=== PATIENT | male | born 1985 | race African-American/Black ===

== ENCOUNTER 2016-05-22 20:53 | Emergency (ER) | payer MEDICAID ==
[2016-04-23 22:12] VITALS: BMI 23.9
[~2016-05-22 20:53] MED LIST: AMBIEN5 MG PO; ASPIRIN81 MG PO; AURODEX OTIC SO10 ML RIGHT EAR; CELEXA20 MG PO; CIPRO500 MG PO; DAKIN'S 0.125%480 M1; DAKIN'S 0.125%480 M1 TOPICAL; DIFLUCAN100 MG PO; DILAUDID2 MG PO; DILAUDID4 MG PO; FLORAJEN3 CAPS460 MG PO; HEP LOCK F IV; HYDROCODONE-APA1 TAB PO; IPRAT-ALBUT 0.5-3 ML UPD; KADIAN60 MG PO; KADIAN80 MG PO; LEVAQUIN500 MG PO; LIDOCAINE50 GM TOPICAL; MEGACE400 MG/10 PO; MERREM 1 GM/NS 11 G1 IV; MIRALAX17 GM PO; MORPHINE IMMEDI15 MG PO; MUCINEX600 MG PO; PERCOCET 10/3251 TA1 PO; PROTONIX40 MG PO; SALINE FLUSH10 ML IV; SILVADENE CREAM50 GM TP; XANAX2 MG PO
== END 2016-05-22 21:47 | disposition home or self-care (01) ==
LOC: D.ER 20:53
DX: G89.29 Other chronic pain (principal); M25.50 Pain in unspecified joint; G82.50 Quadriplegia, unspecified; F17.200 Nicotine dependence, unspecified, uncomplicated; L89.154 Pressure ulcer of sacral region, stage 4

== ENCOUNTER 2016-05-31 20:12 | Emergency (ER) | payer MEDICAID ==
[2016-04-23 22:12] VITALS: BMI 23.9
[2016-05-31 21:39] LABS: BASOPHILS 0.2 % (0.0-2.0); EOSINOPHILS 3.1 % (0-7); HEMATOCRIT 38.8 % (42.0-54.0); HEMOGLOBIN 13.2 g/dL (13.5-17.5); LYMPHOCYTES 42.7 % (15-50); MCH 32.5 pg (26.0-34.0); MCV 95.6 fL (80.0-100.0); RBC 4.06 10x6/uL (4.20-6.10); RDW 13.9 % (11.5-14.5); WBC 4.5 10x3/uL (4.8-10.8)
[2016-05-31 21:45] LABS: PLATELET COUNT 125 10x3/uL (130-400)
[2016-05-31 21:49] LABS: ALBUMIN 3.6 g/dL (3.4-5.0); ALKALINE PHOSPHATASE 94 U/L (46-116); ALT (SGPT) 12 U/L (10-68); BILIRUBIN - TOTAL 0.83 mg/dL (0.2-1.3); CALC OSMOLALITY 280 mosm/kg (275-300); CALCIUM 9.3 mg/dL (8.5-10.1); CARBON DIOXIDE 28.1 mmol/L (21.0-32.0); CHLORIDE - SERUM 105 mmol/L (98-107); CREATININE - SERUM 0.5 mg/dL (0.6-1.3); GLUCOSE 83 mg/dL (74-106); POTASSIUM - SERUM 3.5 mmol/L (3.5-5.1); PROTEIN - SERUM 7.5 g/dL (6.4-8.2); SODIUM 141 mmol/L (136-145); UREA NITROGEN 16 mg/dL (7-18); eGFR NON AFRICAN AMERICAN > 90 mL/min (90-120)
== END 2016-05-31 22:58 | disposition home or self-care (01) ==
LOC: D.ER 20:12
PROVIDERS: Physician Assistant Medical
DX: R52 Pain, unspecified (principal)

== ENCOUNTER 2016-06-08 00:26 | Emergency (ER) | payer MEDICAID ==
[2016-04-23 22:12] VITALS: BMI 23.9
== END 2016-06-08 00:57 | disposition home or self-care (01) ==
LOC: D.ER 00:26
DX: G89.29 Other chronic pain (principal); F17.200 Nicotine dependence, unspecified, uncomplicated

== ENCOUNTER 2016-06-19 20:09 | Emergency (ER) | payer MEDICAID ==
[2016-04-23 22:12] VITALS: BMI 23.9
[2016-06-19 21:06] LABS: APPEARANCE HAZY (CLEAR); BACTERIA MODERATE /hpf (NONE SEEN); BILIRUBIN NEGATIVE (NEGATIVE); COLOR DK YELLOW (YELLOW); GLUCOSE NEGATIVE (NEGATIVE); KETONE NEGATIVE (NEGATIVE); LEUKOCYTE ESTERASE 1+ (NEGATIVE); MUCUS <1+ /lpf (NONE SEEN); NITRITE POSITIVE (NEGATIVE); PROTEIN NEGATIVE (NEGATIVE); RED CELLS - URINE 0-5 /hpf (0-5); SPECIFIC GRAVITY 1.025 (1.005-1.020); UROBILINOGEN NORMAL (NORMAL); WHITE CELLS - URINE 25-50 /hpf (0-5)
== END 2016-06-19 22:28 | disposition home or self-care (01) ==
LOC: D.ER 20:09
PROVIDERS: Emergency Medicine
DX: L89.92 Pressure ulcer of unspecified site, stage 2 (principal)

== ENCOUNTER 2016-07-06 16:25 | Emergency (ER) | payer MEDICAID ==
[2016-04-23 22:12] VITALS: BMI 23.9
== END 2016-07-06 19:55 | disposition home or self-care (01) ==
LOC: D.ER 16:25
DX: M54.12 Radiculopathy, cervical region (principal); G82.50 Quadriplegia, unspecified; G89.29 Other chronic pain

== ENCOUNTER 2016-08-04 02:13 | Emergency (ER) | payer MEDICAID ==
[2016-04-23 22:12] VITALS: BMI 23.9
[2016-08-04 03:44] LABS: BASOPHILS 0.1 % (0.0-2.0); EOSINOPHILS 0.5 % (0-7); HEMATOCRIT 47.9 % (42.0-54.0); HEMOGLOBIN 16.2 g/dL (13.5-17.5); IMMATURE GRANULOCYTES 0.4 % (0-5); LYMPHOCYTES 12.8 % (15-50); MCH 33.7 pg (26.0-34.0); MCHC 33.8 g/dL (31.0-37.0); MCV 99.6 fL (80.0-100.0); MEAN PLATELET VOLUME 12.3 fL (7.4-10.4); MONOCYTES 9.2 % (2-11); PLATELET COUNT 119 10x3/uL (130-400); RBC 4.81 10x6/uL (4.20-6.10); RDW 13.1 % (11.5-14.5); WBC 10.4 10x3/uL (4.8-10.8)
[2016-08-04 03:55] LABS: APPEARANCE TURBID (CLEAR); BACTERIA MANY /hpf (NONE SEEN); BILIRUBIN NEGATIVE (NEGATIVE); COLOR YELLOW (YELLOW); EPITHELIAL CELLS 0-5 /hpf (0-5); GLUCOSE NEGATIVE (NEGATIVE); GRANULAR CAST OCC /lpf (NONE SEEN); KETONE NEGATIVE (NEGATIVE); LEUKOCYTE ESTERASE 2+ (NEGATIVE); NITRITE NEGATIVE (NEGATIVE); PROTEIN TRACE mg/dL (NEGATIVE); RED CELLS - URINE 0-5 /hpf (0-5); UROBILINOGEN NORMAL (NORMAL); WHITE CELLS - URINE >50 /hpf (0-5)
[2016-08-04 04:02] LABS: CALC OSMOLALITY 292 mosm/kg (275-300); CALCIUM 8.9 mg/dL (8.5-10.1); CARBON DIOXIDE 27.6 mmol/L (21.0-32.0); CHLORIDE - SERUM 109 mmol/L (98-107); CREATININE - SERUM 0.6 mg/dL (0.6-1.3); GLUCOSE 122 mg/dL (74-106); POTASSIUM - SERUM 3.8 mmol/L (3.5-5.1); SODIUM 146 mmol/L (136-145); UREA NITROGEN 14 mg/dL (7-18); eGFR NON AFRICAN AMERICAN > 90 mL/min (90-120)
== END 2016-08-04 09:20 | disposition home or self-care (01) ==
LOC: D.ER 02:13
PROVIDERS: Family Medicine
DX: R10.9 Unspecified abdominal pain (principal); M54.12 Radiculopathy, cervical region

== ENCOUNTER 2016-10-21 00:24 | Emergency (ER) | payer MEDICAID ==
[2016-04-23 22:12] VITALS: BMI 23.9
== END 2016-10-21 02:00 | disposition home or self-care (01) ==
LOC: D.ER 00:24
DX: M25.50 Pain in unspecified joint (principal); G89.4 Chronic pain syndrome

== ENCOUNTER 2016-11-19 01:08 | Emergency (ER) | payer MEDICAID ==
[2016-04-23 22:12] VITALS: BMI 23.9
== END 2016-11-19 03:22 | disposition home or self-care (01) ==
LOC: D.ER 01:08
DX: J20.9 Acute bronchitis, unspecified (principal); G89.4 Chronic pain syndrome

== ENCOUNTER 2016-11-20 21:21 | Emergency (ER) | payer MEDICAID ==
[2016-04-23 22:12] VITALS: BMI 23.9
== END 2016-11-20 23:01 | disposition home or self-care (01) ==
LOC: D.ER 21:21
DX: S16.1XXA Strain of muscle, fascia and tendon at neck level, initial encounter (principal); W05.0XXA Fall from non-moving wheelchair, initial encounter; Y93.89 Activity, other specified; Y92.410 Unspecified street and highway as the place of occurrence of the external cause; G89.4 Chronic pain syndrome; F17.200 Nicotine dependence, unspecified, uncomplicated

== ENCOUNTER 2017-01-06 23:24 | Inpatient (IN) | payer MEDICAID ==
[~2017-01-06] VITALS: Ht 160 cm; Wt 49.9 kg
[2017-01-07 01:07] LABS: BASOPHILS 0.2 % (0-2); EOSINOPHILS 1.2 % (0-7); HEMATOCRIT 38.7 % (42.0-54.0); HEMOGLOBIN 13.1 g/dL (13.5-17.5); IMMATURE GRANULOCYTES 0.2 % (0-5); LYMPHOCYTES 33.5 % (15-50); MCH 33.6 pg (26.0-34.0); MCHC 33.9 g/dL (31.0-37.0); MCV 99.2 fL (80.0-100.0); MEAN PLATELET VOLUME 11.6 fL (7.4-10.4); MONOCYTES 10.7 % (2-11); NEUTROPHILS 54.2 % (40-80); RDW 13.3 % (11.5-14.5)
[2017-01-07 01:11] LABS: COLOR YELLOW (YELLOW)
[2017-01-07 01:11] LABS: PLATELET COUNT 150 10x3/uL (130-400)
[2017-01-07 01:12] LABS: APPEARANCE CLOUDY (CLEAR); BILIRUBIN NEGATIVE (NEGATIVE); GLUCOSE NEGATIVE (NEGATIVE); KETONE NEGATIVE (NEGATIVE); LEUKOCYTE ESTERASE 1+ (NEGATIVE); NITRITE NEGATIVE (NEGATIVE); PROTEIN NEGATIVE (NEGATIVE); SPECIFIC GRAVITY 1.005 (1.005-1.020); UROBILINOGEN NORMAL (NORMAL)
[2017-01-07 01:13] LABS: BACTERIA MANY /hpf (NONE SEEN); EPITHELIAL CELLS 0-5 /hpf (0-5); RED CELLS - URINE 0-5 /hpf (0-5)
[2017-01-07 01:22] LABS: ALBUMIN 3.4 g/dL (3.4-5.0); ALKALINE PHOSPHATASE 92 U/L (46-116); ALT (SGPT) 14 U/L (10-68); CALC OSMOLALITY 280 mosm/kg (275-300); CALCIUM 8.8 mg/dL (8.5-10.1); CARBON DIOXIDE 25.7 mmol/L (21.0-32.0); CHLORIDE - SERUM 106 mmol/L (98-107); CREATININE - SERUM 0.6 mg/dL (0.6-1.3); GLUCOSE 96 mg/dL (74-106); POTASSIUM - SERUM 3.8 mmol/L (3.5-5.1); SODIUM 141 mmol/L (136-145); UREA NITROGEN 13 mg/dL (7-18); eGFR NON AFRICAN AMERICAN > 90 mL/min (90-120)
[2017-01-07 04:16] VITALS: BP 107/69; BMI 19.5
[2017-01-07 09:24] VITALS: BP 76/44
[2017-01-07 12:51] VITALS: Ht 160 cm; Wt 49.9 kg
[2017-01-07 14:02] VITALS: BP 81/46
[2017-01-07 16:20] VITALS: BP 89/52
[2017-01-07 20:00] VITALS: BP 87/46
[2017-01-08 05:27] LABS: BASOPHILS 0.2 % (0-2); EOSINOPHILS 2.9 % (0-7); HEMATOCRIT 35.5 % (42.0-54.0); HEMOGLOBIN 11.9 g/dL (13.5-17.5); IMMATURE GRANULOCYTES 0.2 % (0-5); LYMPHOCYTES 27.7 % (15-50); MCH 33.4 pg (26.0-34.0); MCHC 33.5 g/dL (31.0-37.0); MCV 99.7 fL (80.0-100.0); MEAN PLATELET VOLUME 11.3 fL (7.4-10.4); MONOCYTES 18.5 % (2-11); NEUTROPHILS 50.5 % (40-80); PLATELET COUNT 123 10x3/uL (130-400); RBC 3.56 10x6/uL (4.20-6.10); RDW 13.1 % (11.5-14.5); WBC 6.2 10x3/uL (4.8-10.8)
[2017-01-08 05:39] LABS: CALC OSMOLALITY 271 mosm/kg (275-300); CALCIUM 8.2 mg/dL (8.5-10.1); CARBON DIOXIDE 26.8 mmol/L (21.0-32.0); CHLORIDE - SERUM 102 mmol/L (98-107); CREATININE - SERUM 0.5 mg/dL (0.6-1.3); GLUCOSE 86 mg/dL (74-106); POTASSIUM - SERUM 4.1 mmol/L (3.5-5.1); SODIUM 137 mmol/L (136-145); UREA NITROGEN 11 mg/dL (7-18); eGFR NON AFRICAN AMERICAN > 90 mL/min (90-120)
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
[2017-01-08 08:42] VITALS: BP 96/69
[2017-01-08 12:52] VITALS: BP 106/72
[2017-01-08 16:39] VITALS: BP 92/64
[2017-01-08 20:00] VITALS: BP 105/58
[2017-01-09] VITALS: BP 143/83
[2017-01-09 04:00] VITALS: BP 97/68
[2017-01-09 06:17] LABS: BASOPHILS 0 % (0-2); EOSINOPHILS 5.5 % (0-7); HEMATOCRIT 34.3 % (42.0-54.0); HEMOGLOBIN 11.8 g/dL (13.5-17.5); IMMATURE GRANULOCYTES 0.3 % (0-5); LYMPHOCYTES 25.8 % (15-50); MCH 33.8 pg (26.0-34.0); MCHC 34.4 g/dL (31.0-37.0); MCV 98.3 fL (80.0-100.0); MEAN PLATELET VOLUME 11.2 fL (7.4-10.4); MONOCYTES 24.2 % (2-11); NEUTROPHILS 44.2 % (40-80); PLATELET COUNT 125 10x3/uL (130-400); RBC 3.49 10x6/uL (4.20-6.10)
[2017-01-09 06:34] LABS: WBC 3.6 10x3/uL (4.8-10.8)
[2017-01-09 06:43] LABS: CALC OSMOLALITY 278 mosm/kg (275-300); CALCIUM 8.9 mg/dL (8.5-10.1); CARBON DIOXIDE 29.1 mmol/L (21.0-32.0); CHLORIDE - SERUM 104 mmol/L (98-107); CREATININE - SERUM 0.4 mg/dL (0.6-1.3); GLUCOSE 99 mg/dL (74-106); POTASSIUM - SERUM 4.4 mmol/L (3.5-5.1); SODIUM 139 mmol/L (136-145); eGFR NON AFRICAN AMERICAN > 90 mL/min (90-120)
[2017-01-09 06:45] LABS: UREA NITROGEN 15 mg/dL (7-18)
[2017-01-09 08:58] VITALS: BP 145/82
[2017-01-09 12:48] VITALS: BP 92/59
[2017-01-09 17:46] VITALS: BP 105/66
[2017-01-09 20:00] VITALS: BP 122/84
[2017-01-10 04:00] VITALS: BP 135/89
[2017-01-10 05:20] LABS: BASOPHILS 0.3 % (0-2); EOSINOPHILS 5.7 % (0-7); HEMATOCRIT 35.4 % (42.0-54.0); LYMPHOCYTES 40.4 % (15-50); MCH 33.2 pg (26.0-34.0); MCHC 33.9 g/dL (31.0-37.0); MCV 98.1 fL (80.0-100.0); MEAN PLATELET VOLUME 12.2 fL (7.4-10.4); MONOCYTES 25.3 % (2-11); NEUTROPHILS 28.3 % (40-80); PLATELET COUNT 144 10x3/uL (130-400); RBC 3.61 10x6/uL (4.20-6.10); RDW 12.9 % (11.5-14.5); WBC 3.8 10x3/uL (4.8-10.8)
[2017-01-10 05:35] LABS: CALC OSMOLALITY 280 mosm/kg (275-300); CALCIUM 9.3 mg/dL (8.5-10.1); CHLORIDE - SERUM 104 mmol/L (98-107); CREATININE - SERUM 0.5 mg/dL (0.6-1.3); GLUCOSE 83 mg/dL (74-106); SODIUM 142 mmol/L (136-145); eGFR NON AFRICAN AMERICAN > 90 mL/min (90-120)
[2017-01-10 05:53] LABS: UREA NITROGEN 11 mg/dL (7-18)
[2017-01-10 08:32] VITALS: BP 112/72
[2017-01-10] MEDS ORDERED: CEFUROXIME250 MG PO (10:43)
== END 2017-01-10 19:45 | disposition home health service (06) | DRG 698 ==
LOC: D.ER 23:24 → D.MS 01-07 01:45
PROVIDERS: Emergency Medicine; ADMIT Family Medicine
DX: T83.518A Infection and inflammatory reaction due to other urinary catheter, initial encounter (principal); G82.50 Quadriplegia, unspecified; N39.0 Urinary tract infection, site not specified; S14.104S Unspecified injury at C4 level of cervical spinal cord, sequela; S12.300S Unspecified displaced fracture of fourth cervical vertebra, sequela; V49.9XXS Car occupant (driver) (passenger) injured in unspecified traffic accident, sequela; G89.29 Other chronic pain; K59.00 Constipation, unspecified; G47.00 Insomnia, unspecified; F17.200 Nicotine dependence, unspecified, uncomplicated

== ENCOUNTER 2017-05-29 01:40 | Emergency (ER) | payer MEDICAID ==
[2017-01-07 12:51] VITALS: BMI 19.4
[~2017-05-29 01:40] MED LIST changes: +CEFUROXIME250 MG PO
[2017-05-29 03:03] LABS: BASOPHILS 0.2 % (0-2); HEMATOCRIT 37.3 % (42.0-54.0); HEMOGLOBIN 12.6 g/dL (13.5-17.5); IMMATURE GRANULOCYTES 0.2 % (0-5); MCH 33.8 pg (26.0-34.0); MCHC 33.8 g/dL (31.0-37.0); MEAN PLATELET VOLUME 10.9 fL (7.4-10.4); MONOCYTES 10.6 % (2-11); PLATELET COUNT 140 10x3/uL (130-400); RBC 3.73 10x6/uL (4.20-6.10); RDW 13.2 % (11.5-14.5); WBC 5.6 10x3/uL (4.8-10.8)
[2017-05-29 03:08] LABS: INR 1.07 (0.85-1.17); PROTIME 13.5 SECONDS (11.6-15.0)
[2017-05-29 03:09] LABS: D-DIMER-QUANTITATIVE 1.26 ug/mLFEU (0.20-0.54)
[2017-05-29 03:13] LABS: ALBUMIN 3.2 g/dL (3.4-5.0); ALKALINE PHOSPHATASE 94 U/L (46-116); ALT (SGPT) 14 U/L (10-68); BILIRUBIN - TOTAL 0.62 mg/dL (0.2-1.3); CALC OSMOLALITY 281 mosm/kg (275-300); CALCIUM 8.8 mg/dL (8.5-10.1); CARBON DIOXIDE 29.2 mmol/L (21.0-32.0); CHLORIDE - SERUM 105 mmol/L (98-107); CREATININE - SERUM 0.5 mg/dL (0.6-1.3); GLUCOSE 89 mg/dL (74-106); POTASSIUM - SERUM 3.4 mmol/L (3.5-5.1); SODIUM 142 mmol/L (136-145); UREA NITROGEN 12 mg/dL (7-18); eGFR NON AFRICAN AMERICAN > 90 mL/min (90-120)
[2017-05-29 03:15] LABS: APPEARANCE CLOUDY (CLEAR); COLOR YELLOW (YELLOW); NITRITE NEGATIVE (NEGATIVE); PROTEIN 1+ mg/dL (NEGATIVE); SPECIFIC GRAVITY 1.015 (1.005-1.020)
[2017-05-29 03:16] LABS: BILIRUBIN NEGATIVE (NEGATIVE); GLUCOSE NEGATIVE (NEGATIVE); KETONE NEGATIVE (NEGATIVE)
[2017-05-29 03:17] LABS: BACTERIA MANY /hpf (NONE SEEN); EPITHELIAL CELLS 0-5 /hpf (0-5); RED CELLS - URINE 0-5 /hpf (0-5)
[2017-05-29 03:18] LABS: TROPONIN-I < 0.017 ng/mL (0.000-0.060)
== END 2017-05-29 04:20 | disposition home or self-care (01) ==
LOC: D.ER 01:40
PROVIDERS: Family Medicine
DX: N39.0 Urinary tract infection, site not specified (principal)

== ENCOUNTER 2017-06-14 01:21 | Emergency (ER) | payer MEDICAID ==
[2017-01-07 12:51] VITALS: BMI 19.4
[2017-06-14 01:58] LABS: BASOPHILS 0.2 % (0-2); EOSINOPHILS 1.9 % (0-7); HEMATOCRIT 34.4 % (42.0-54.0); HEMOGLOBIN 11.8 g/dL (13.5-17.5); IMMATURE GRANULOCYTES 0.2 % (0-5); MCH 34.4 pg (26.0-34.0); MCHC 34.3 g/dL (31.0-37.0); MCV 100.3 fL (80.0-100.0); MEAN PLATELET VOLUME 10.4 fL (7.4-10.4); MONOCYTES 11.3 % (2-11); NEUTROPHILS 58.4 % (40-80); PLATELET COUNT 187 10x3/uL (130-400); RBC 3.43 10x6/uL (4.20-6.10); RDW 12.6 % (11.5-14.5); WBC 4.8 10x3/uL (4.8-10.8)
[2017-06-14 02:07] LABS: CALC OSMOLALITY 279 mosm/kg (275-300); CARBON DIOXIDE 25.9 mmol/L (21.0-32.0); CHLORIDE - SERUM 105 mmol/L (98-107); CREATININE - SERUM 0.5 mg/dL (0.6-1.3); GLUCOSE 91 mg/dL (74-106); POTASSIUM - SERUM 3.7 mmol/L (3.5-5.1); SODIUM 141 mmol/L (136-145); UREA NITROGEN 10 mg/dL (7-18); eGFR NON AFRICAN AMERICAN > 90 mL/min (90-120)
== END 2017-06-14 02:57 | disposition home or self-care (01) ==
LOC: D.ER 01:21
PROVIDERS: Emergency Medicine
DX: T82.49XA Other complication of vascular dialysis catheter, initial encounter (principal)

== ENCOUNTER 2017-08-06 22:06 | Emergency (ER) | payer MEDICAID ==
[2017-01-07 12:51] VITALS: BMI 19.4
[2017-08-06 23:00] LABS: BASOPHILS 0.1 % (0-2); EOSINOPHILS 0.9 % (0-7); HEMATOCRIT 37.1 % (42.0-54.0); HEMOGLOBIN 12.7 g/dL (13.5-17.5); IMMATURE GRANULOCYTES 0.2 % (0-5); LYMPHOCYTES 16.7 % (15-50); MCH 34.1 pg (26.0-34.0); MCHC 34.2 g/dL (31.0-37.0); MCV 99.7 fL (80.0-100.0); MEAN PLATELET VOLUME 10.8 fL (7.4-10.4); MONOCYTES 9.6 % (2-11); NEUTROPHILS 72.5 % (40-80); PLATELET COUNT 102 10x3/uL (130-400); RBC 3.72 10x6/uL (4.20-6.10); RDW 12.8 % (11.5-14.5)
[2017-08-06 23:14] LABS: ALBUMIN 3.2 g/dL (3.4-5.0); ALKALINE PHOSPHATASE 86 U/L (46-116); ALT (SGPT) 12 U/L (10-68); BILIRUBIN - TOTAL 0.84 mg/dL (0.2-1.3); CALC OSMOLALITY 280 mosm/kg (275-300); CALCIUM 8.3 mg/dL (8.5-10.1); CHLORIDE - SERUM 105 mmol/L (98-107); CREATININE - SERUM 0.6 mg/dL (0.6-1.3); GLUCOSE 83 mg/dL (74-106); POTASSIUM - SERUM 4.1 mmol/L (3.5-5.1); SODIUM 141 mmol/L (136-145); UREA NITROGEN 16 mg/dL (7-18); eGFR NON AFRICAN AMERICAN > 90 mL/min (90-120)
[2017-08-06 23:24] LABS: APPEARANCE HAZY (CLEAR); BILIRUBIN NEGATIVE (NEGATIVE); COLOR YELLOW (YELLOW); GLUCOSE NEGATIVE (NEGATIVE); KETONE NEGATIVE (NEGATIVE); NITRITE POSITIVE (NEGATIVE); PROTEIN NEGATIVE (NEGATIVE); UROBILINOGEN NORMAL (NORMAL)
[2017-08-06 23:33] LABS: BACTERIA MANY /hpf (NONE SEEN); EPITHELIAL CELLS OCC /hpf (0-5); RED CELLS - URINE 0-5 /hpf (0-5)
== END 2017-08-06 23:58 | disposition home or self-care (01) ==
LOC: D.ER 22:06
PROVIDERS: Emergency Medicine
DX: N39.0 Urinary tract infection, site not specified (principal); J06.9 Acute upper respiratory infection, unspecified; F17.200 Nicotine dependence, unspecified, uncomplicated

== ENCOUNTER 2017-12-06 23:59 | Emergency (ER) | payer MEDICAID ==
[~2017-12-06] VITALS: Ht 160 cm; Wt 56.8 kg
[2017-12-07 00:09] VITALS: Ht 160 cm; Wt 56.8 kg
[2017-12-07 01:35] LABS: BASOPHILS 0.2 % (0-2); EOSINOPHILS 2.1 % (0-7); HEMATOCRIT 36.9 % (42.0-54.0); HEMOGLOBIN 12.4 g/dL (13.5-17.5); IMMATURE GRANULOCYTES 0.2 % (0-5); LYMPHOCYTES 32.6 % (15-50); MCH 33.8 pg (26.0-34.0); MCHC 33.6 g/dL (31.0-37.0); MCV 100.5 fL (80.0-100.0); MONOCYTES 14.9 % (2-11); RBC 3.67 10x6/uL (4.20-6.10); RDW 13.3 % (11.5-14.5); WBC 5.3 10x3/uL (4.8-10.8)
[2017-12-07 01:38] LABS: PLATELET COUNT 127 10x3/uL (130-400)
[2017-12-07 01:48] LABS: ALBUMIN 3.5 g/dL (3.4-5.0); ALKALINE PHOSPHATASE 80 U/L (46-116); ALT (SGPT) 25 U/L (10-68); AMYLASE - SERUM 73 U/L (25-115); BILIRUBIN - TOTAL 0.33 mg/dL (0.2-1.3); CALC OSMOLALITY 290 mosm/kg (275-300); CALCIUM 8.9 mg/dL (8.5-10.1); CHLORIDE - SERUM 108 mmol/L (98-107); CREATININE - SERUM 0.6 mg/dL (0.6-1.3); GLUCOSE 95 mg/dL (74-106); LIPASE 86 U/L (73-393); POTASSIUM - SERUM 3.9 mmol/L (3.5-5.1); SODIUM 144 mmol/L (136-145); UREA NITROGEN 24 mg/dL (7-18); eGFR NON AFRICAN AMERICAN > 90 mL/min (90-120)
[2017-12-07] MEDS ORDERED: XANAX0.25 MG PO (03:02)
[2017-12-07] MEDS ORDERED: OXYCODONE HCL10 MG PO (03:02)
[2017-12-07] MEDS ORDERED: CIPRO250 MG PO (03:02)
[2017-12-07 04:10] VITALS: BP 95/67
== END 2017-12-07 04:10 | disposition home or self-care (01) ==
LOC: D.ER 23:59
PROVIDERS: Family Medicine
DX: R10.9 Unspecified abdominal pain (principal); R11.0 Nausea; M79.1 Myalgia

== ENCOUNTER 2017-12-16 23:34 | Inpatient (IN) | payer MEDICAID ==
[~2017-12-16] VITALS: Ht 160 cm; Wt 56.7 kg
[~2017-12-16 23:34] MED LIST changes: +CIPRO250 MG PO; +OXYCODONE HCL10 MG PO; +XANAX0.25 MG PO
[2017-12-17] VITALS (11 sets, daily range): BP systolic 107–166; BP diastolic 64–97; BMI 22.1
[2017-12-17 01:20] LABS: BASOPHILS 0.2 % (0-2); EOSINOPHILS 1.5 % (0-7); HEMATOCRIT 34.6 % (42.0-54.0); HEMOGLOBIN 11.8 g/dL (13.5-17.5); IMMATURE GRANULOCYTES 0.2 % (0-5); LYMPHOCYTES 35.6 % (15-50); MCHC 34.1 g/dL (31.0-37.0); MCV 99.7 fL (80.0-100.0); MEAN PLATELET VOLUME 11.2 fL (7.4-10.4); MONOCYTES 17.6 % (2-11); NEUTROPHILS 44.9 % (40-80); PLATELET COUNT 121 10x3/uL (130-400); RBC 3.47 10x6/uL (4.20-6.10); RDW 13.1 % (11.5-14.5); WBC 6.2 10x3/uL (4.8-10.8)
[2017-12-17 01:34] LABS: ALBUMIN 3.1 g/dL (3.4-5.0); ALKALINE PHOSPHATASE 83 U/L (46-116); ALT (SGPT) 20 U/L (10-68); AMYLASE - SERUM 84 U/L (25-115); CALC OSMOLALITY 281 mosm/kg (275-300); CALCIUM 8.2 mg/dL (8.5-10.1); CARBON DIOXIDE 30.8 mmol/L (21.0-32.0); CHLORIDE - SERUM 107 mmol/L (98-107); CREATINE KINASE 53 UL (21-232); CREATININE - SERUM 0.7 mg/dL (0.6-1.3); GLUCOSE 100 mg/dL (74-106); LIPASE 104 U/L (73-393); POTASSIUM - SERUM 3.5 mmol/L (3.5-5.1); PROTEIN - SERUM 6.8 g/dL (6.4-8.2); SODIUM 142 mmol/L (136-145); UREA NITROGEN 11 mg/dL (7-18); eGFR NON AFRICAN AMERICAN > 90 mL/min (90-120)
[2017-12-17 04:30] LABS: UDS - AMPHET NEGATIVE QUAL (NEGATIVE); UDS - BARB NEGATIVE QUAL (NEGATIVE); UDS - BENZO POSITIVE QUAL (NEGATIVE); UDS - COCAINE NEGATIVE QUAL (NEGATIVE); UDS - OPIATE POSITIVE QUAL (NEGATIVE); UDS - PCP NEGATIVE QUAL (NEGATIVE); UDS - THC POSITIVE QUAL (NEGATIVE)
[2017-12-17 07:12] LABS: BASOPHILS 0.2 % (0-2); EOSINOPHILS 1.4 % (0-7); HEMATOCRIT 33.9 % (42.0-54.0); HEMOGLOBIN 11.4 g/dL (13.5-17.5); LYMPHOCYTES 26.2 % (15-50); MCH 33.6 pg (26.0-34.0); MCHC 33.6 g/dL (31.0-37.0); MONOCYTES 16.3 % (2-11); NEUTROPHILS 55.9 % (40-80); PLATELET COUNT 118 10x3/uL (130-400); RBC 3.39 10x6/uL (4.20-6.10); RDW 13.1 % (11.5-14.5); WBC 5.7 10x3/uL (4.8-10.8)
[2017-12-17 08:17] LABS: CALC OSMOLALITY 281 mosm/kg (275-300); CALCIUM 8.1 mg/dL (8.5-10.1); CARBON DIOXIDE 27.3 mmol/L (21.0-32.0); CHLORIDE - SERUM 107 mmol/L (98-107); GLUCOSE 91 mg/dL (74-106); MAGNESIUM - SERUM 1.8 mg/dL (1.8-2.4); SODIUM 142 mmol/L (136-145); UREA NITROGEN 11 mg/dL (7-18)
[2017-12-17 08:28] LABS: CREATININE - SERUM 0.5 mg/dL (0.6-1.3); POTASSIUM - SERUM 4.2 mmol/L (3.5-5.1); eGFR NON AFRICAN AMERICAN > 90 mL/min (90-120)
[2017-12-18] VITALS: BP 129/85
[2017-12-18 04:00] VITALS: BP 143/95
[2017-12-18 05:42] LABS: BASOPHILS 0.2 % (0-2); EOSINOPHILS 1.8 % (0-7); HEMATOCRIT 32.3 % (42.0-54.0); HEMOGLOBIN 10.9 g/dL (13.5-17.5); IMMATURE GRANULOCYTES 0.2 % (0-5); LYMPHOCYTES 28.4 % (15-50); MCH 33.4 pg (26.0-34.0); MCHC 33.7 g/dL (31.0-37.0); MCV 99.1 fL (80.0-100.0); MEAN PLATELET VOLUME 10.9 fL (7.4-10.4); MONOCYTES 12.9 % (2-11); NEUTROPHILS 56.5 % (40-80); PLATELET COUNT 108 10x3/uL (130-400); RBC 3.26 10x6/uL (4.20-6.10); RDW 12.5 % (11.5-14.5); WBC 6.1 10x3/uL (4.8-10.8)
[2017-12-18 06:05] LABS: CALC OSMOLALITY 276 mosm/kg (275-300); CALCIUM 8.2 mg/dL (8.5-10.1); CARBON DIOXIDE 29.3 mmol/L (21.0-32.0); CHLORIDE - SERUM 106 mmol/L (98-107); CREATININE - SERUM 0.4 mg/dL (0.6-1.3); GLUCOSE 78 mg/dL (74-106); POTASSIUM - SERUM 4.2 mmol/L (3.5-5.1); SODIUM 140 mmol/L (136-145); UREA NITROGEN 9 mg/dL (7-18); eGFR NON AFRICAN AMERICAN > 90 mL/min (90-120)
[2017-12-18 08:24] VITALS: BP 142/95
[2017-12-18 11:01] VITALS: Ht 160 cm; Wt 56.7 kg
[2017-12-18 12:01] VITALS: BP 123/86
[2017-12-18 16:54] VITALS: BP 129/86
[2017-12-18 20:00] VITALS: BP 144/93
[2017-12-19] VITALS: BP 134/85
[2017-12-19 04:00] VITALS: BP 114/82
[2017-12-19 06:20] LABS: BASOPHILS 0.1 % (0-2); EOSINOPHILS 0.7 % (0-7); HEMATOCRIT 34.5 % (42.0-54.0); HEMOGLOBIN 12.1 g/dL (13.5-17.5); IMMATURE GRANULOCYTES 0.2 % (0-5); LYMPHOCYTES 11.7 % (15-50); MCH 33.8 pg (26.0-34.0); MCHC 35.1 g/dL (31.0-37.0); MEAN PLATELET VOLUME 10.9 fL (7.4-10.4); MONOCYTES 10.8 % (2-11); NEUTROPHILS 76.5 % (40-80); RBC 3.58 10x6/uL (4.20-6.10); RDW 12.2 % (11.5-14.5)
[2017-12-19 06:21] LABS: MCV 96.4 fL (80.0-100.0); PLATELET COUNT 135 10x3/uL (130-400); WBC 9.4 10x3/uL (4.8-10.8)
[2017-12-19 06:35] LABS: CALC OSMOLALITY 269 mosm/kg (275-300); CALCIUM 8.5 mg/dL (8.5-10.1); CARBON DIOXIDE 28.6 mmol/L (21.0-32.0); CHLORIDE - SERUM 101 mmol/L (98-107); CREATININE - SERUM 0.5 mg/dL (0.6-1.3); GLUCOSE 97 mg/dL (74-106); POTASSIUM - SERUM 3.7 mmol/L (3.5-5.1); SODIUM 136 mmol/L (136-145); UREA NITROGEN 8 mg/dL (7-18); eGFR NON AFRICAN AMERICAN > 90 mL/min (90-120)
[2017-12-19 08:22] VITALS: BP 122/88
[2017-12-19 12:56] VITALS: BP 137/95
[2017-12-19 16:21] VITALS: BP 117/82
[2017-12-19 20:00] VITALS: BP 130/79
[2017-12-20] VITALS: BP 126/80
[2017-12-20 04:00] VITALS: BP 132/88
[2017-12-20 05:32] LABS: BASOPHILS 0 % (0-2); EOSINOPHILS 2.8 % (0-7); HEMATOCRIT 31.7 % (42.0-54.0); IMMATURE GRANULOCYTES 0.2 % (0-5); LYMPHOCYTES 18.9 % (15-50); MCH 33.4 pg (26.0-34.0); MCHC 34.7 g/dL (31.0-37.0); MCV 96.4 fL (80.0-100.0); MEAN PLATELET VOLUME 10.8 fL (7.4-10.4); MONOCYTES 13.2 % (2-11); NEUTROPHILS 64.9 % (40-80); PLATELET COUNT 146 10x3/uL (130-400); RBC 3.29 10x6/uL (4.20-6.10); RDW 12.2 % (11.5-14.5)
[2017-12-20 05:33] LABS: WBC 5.8 10x3/uL (4.8-10.8)
[2017-12-20 06:13] LABS: CALCIUM 8.4 mg/dL (8.5-10.1); CHLORIDE - SERUM 104 mmol/L (98-107); GLUCOSE 81 mg/dL (74-106); POTASSIUM - SERUM 3.6 mmol/L (3.5-5.1); SODIUM 139 mmol/L (136-145)
[2017-12-20 06:27] LABS: CALC OSMOLALITY 273 mosm/kg (275-300); CREATININE - SERUM 0.3 mg/dL (0.6-1.3); UREA NITROGEN 5 mg/dL (7-18); eGFR NON AFRICAN AMERICAN > 90 mL/min (90-120)
[2017-12-20 08:02] VITALS: BP 127/92
[2017-12-20 13:35] VITALS: BP 140/98
[2017-12-20 16:36] VITALS: BP 130/90
[2017-12-20 20:00] VITALS: BP 130/80
[2017-12-21] VITALS: BP 139/80
[2017-12-21 04:00] VITALS: BP 141/85
[2017-12-21 08:55] VITALS: BP 139/92
[2017-12-21 21:15] VITALS: BP 135/60
[2017-12-22 04:23] VITALS: BP 165/95
[2017-12-22] MEDS ORDERED: CIPRO500 MG PO (07:52)
[2017-12-22 08:43] VITALS: BP 139/95
[2017-12-22 13:16] VITALS: BP 136/95
[2017-12-22 18:06] VITALS: BP 115/77
[2017-12-22 20:00] VITALS: BP 138/96
[2017-12-22 22:00] LABS: APPEARANCE HAZY (CLEAR); BILIRUBIN NEGATIVE (NEGATIVE); COLOR YELLOW (YELLOW); GLUCOSE NEGATIVE (NEGATIVE); KETONE MODERATE mg/dL (NEGATIVE); NITRITE NEGATIVE (NEGATIVE); PROTEIN NEGATIVE (NEGATIVE); UROBILINOGEN NORMAL (NORMAL)
[2017-12-23 06:59] VITALS: BP 144/100
[2017-12-23 09:21] VITALS: BP 155/100
[2017-12-23 12:11] LABS: CALC OSMOLALITY 280 mosm/kg (275-300); CARBON DIOXIDE 27.2 mmol/L (21.0-32.0); CHLORIDE - SERUM 106 mmol/L (98-107); CREATININE - SERUM 0.4 mg/dL (0.6-1.3); GLUCOSE 111 mg/dL (74-106); SODIUM 142 mmol/L (136-145); UREA NITROGEN 3 mg/dL (7-18); eGFR NON AFRICAN AMERICAN > 90 mL/min (90-120)
[2017-12-23 12:13] LABS: BASOPHILS 0 % (0-2); EOSINOPHILS 0.9 % (0-7); HEMATOCRIT 31.1 % (42.0-54.0); HEMOGLOBIN 11.3 g/dL (13.5-17.5); IMMATURE GRANULOCYTES 0.2 % (0-5); LYMPHOCYTES 25.6 % (15-50); MCH 34.6 pg (26.0-34.0); MCHC 36.3 g/dL (31.0-37.0); MCV 95.1 fL (80.0-100.0); MEAN PLATELET VOLUME 10.8 fL (7.4-10.4); NEUTROPHILS 57.3 % (40-80); PLATELET COUNT 165 10x3/uL (130-400); RBC 3.27 10x6/uL (4.20-6.10); RDW 12.3 % (11.5-14.5); WBC 4.3 10x3/uL (4.8-10.8)
[2017-12-23 12:23] LABS: POTASSIUM - SERUM 2.5 mmol/L (3.5-5.1)
[2017-12-23 12:38] VITALS: BP 158/93
[2017-12-23 17:30] VITALS: BP 122/87
[2017-12-23 21:36] VITALS: BP 125/74
[2017-12-24 08:40] VITALS: BP 132/94
[2017-12-24 08:45] LABS: CALC OSMOLALITY 278 mosm/kg (275-300); CARBON DIOXIDE 28.6 mmol/L (21.0-32.0); CHLORIDE - SERUM 109 mmol/L (98-107); CKMB 0.4 U/L (0.0-3.6); CREATININE - SERUM 0.4 mg/dL (0.6-1.3); GLUCOSE 94 mg/dL (74-106); POTASSIUM - SERUM 3.9 mmol/L (3.5-5.1); SODIUM 142 mmol/L (136-145); TROPONIN-I < 0.017 ng/mL (0.000-0.060); eGFR NON AFRICAN AMERICAN > 90 mL/min (90-120)
[2017-12-24 08:47] LABS: UREA NITROGEN 2 mg/dL (7-18)
[2017-12-24 12:19] VITALS: BP 115/70
[2017-12-24 16:37] VITALS: BP 123/97
[2017-12-24 19:50] VITALS: BP 131/85
[2017-12-25] VITALS: BP 143/89
[2017-12-25 04:00] VITALS: BP 154/80
[2017-12-25 06:05] LABS: CALCIUM 8.2 mg/dL (8.5-10.1); CARBON DIOXIDE 29.6 mmol/L (21.0-32.0); CHLORIDE - SERUM 107 mmol/L (98-107); CREATININE - SERUM 0.4 mg/dL (0.6-1.3); GLUCOSE 85 mg/dL (74-106); POTASSIUM - SERUM 3.5 mmol/L (3.5-5.1); SODIUM 140 mmol/L (136-145); eGFR NON AFRICAN AMERICAN > 90 mL/min (90-120)
[2017-12-25 06:06] LABS: CALC OSMOLALITY 274 mosm/kg (275-300); TROPONIN-I < 0.017 ng/mL (0.000-0.060); UREA NITROGEN 4 mg/dL (7-18)
[2017-12-25 08:19] VITALS: BP 140/108
== END 2017-12-25 15:32 | disposition home health service (06) | DRG 391 ==
LOC: D.ER 23:34 → D.EDHOLD 12-17 04:30 → D.MS 12-17 04:30
PROVIDERS: Family Medicine
DX: K59.00 Constipation, unspecified (principal); G82.50 Quadriplegia, unspecified; K04.7 Periapical abscess without sinus; R10.9 Unspecified abdominal pain; R41.0 Disorientation, unspecified; E87.6 Hypokalemia; R07.9 Chest pain, unspecified; L89.152 Pressure ulcer of sacral region, stage 2

== ENCOUNTER 2018-01-15 22:59 | Emergency (ER) | payer MEDICAID ==
[~2018-01-15] VITALS: Ht 160 cm; Wt 54.5 kg
[2018-01-15 23:04] VITALS: Ht 160 cm; Wt 54.5 kg
[2018-01-15 23:30] LABS: HEMATOCRIT 36.1 % (42.0-54.0); HEMOGLOBIN 12.6 g/dL (13.5-17.5); LYMPHOCYTES 33.4 % (15-50); MCH 33.6 pg (26.0-34.0); MCHC 34.9 g/dL (31.0-37.0); MCV 96.3 fL (80.0-100.0); MEAN PLATELET VOLUME 10.3 fL (7.4-10.4); NEUTROPHILS 53.6 % (40-80); RBC 3.75 10x6/uL (4.20-6.10); RDW 13.2 % (11.5-14.5); WBC 5.3 10x3/uL (4.8-10.8)
[2018-01-15 23:36] LABS: PLATELET COUNT 125 10x3/uL (130-400)
[2018-01-15 23:46] LABS: ALBUMIN 3.4 g/dL (3.4-5.0); ALKALINE PHOSPHATASE 108 U/L (46-116); ALT (SGPT) 19 U/L (10-68); CALC OSMOLALITY 278 mosm/kg (275-300); CALCIUM 8.4 mg/dL (8.5-10.1); CHLORIDE - SERUM 106 mmol/L (98-107); CREATININE - SERUM 0.6 mg/dL (0.6-1.3); GLUCOSE 100 mg/dL (74-106); POTASSIUM - SERUM 3.5 mmol/L (3.5-5.1); PROTEIN - SERUM 7.3 g/dL (6.4-8.2); SODIUM 140 mmol/L (136-145); UREA NITROGEN 13 mg/dL (7-18); eGFR NON AFRICAN AMERICAN > 90 mL/min (90-120)
[2018-01-16 00:03] LABS: CREATINE KINASE 70 UL (21-232); TROPONIN-I < 0.017 ng/mL (0.000-0.060)
[2018-01-16 01:31] VITALS: BP 107/77
== END 2018-01-16 01:30 | disposition home or self-care (01) ==
LOC: D.ER 22:59
PROVIDERS: Family Medicine
DX: J98.11 Atelectasis (principal); R05 Cough; G82.50 Quadriplegia, unspecified; Z93.3 Colostomy status; F17.200 Nicotine dependence, unspecified, uncomplicated

== ENCOUNTER 2018-03-01 04:00 | Emergency (ER) | payer MEDICAID ==
[~2018-03-01] VITALS: Ht 160 cm; Wt 40.9 kg
[2018-03-01 04:04] VITALS: Ht 160 cm; Wt 40.9 kg
[2018-03-01 07:40] VITALS: BP 138/90
== END 2018-03-01 07:41 | disposition home or self-care (01) ==
LOC: D.ER 04:00
DX: G82.20 Paraplegia, unspecified (principal); L89.152 Pressure ulcer of sacral region, stage 2

== ENCOUNTER 2018-04-10 23:13 | Emergency (ER) | payer MEDICAID ==
[2018-03-01 04:04] VITALS: Ht 160 cm; Wt 54.5 kg
[~2018-04-10] VITALS: Ht 160 cm; Wt 54.5 kg
[2018-04-10 23:41] LABS: BASOPHILS 0.2 % (0-2); EOSINOPHILS 3.2 % (0-7); HEMATOCRIT 37.6 % (42.0-54.0); IMMATURE GRANULOCYTES 0.2 % (0-5); LYMPHOCYTES 32.3 % (15-50); MCH 34.3 pg (26.0-34.0); MCHC 34.6 g/dL (31.0-37.0); MCV 99.2 fL (80.0-100.0); MONOCYTES 10.2 % (2-11); NEUTROPHILS 53.9 % (40-80); PLATELET COUNT 159 10x3/uL (130-400); RBC 3.79 10x6/uL (4.20-6.10); RDW 12.8 % (11.5-14.5); WBC 5.6 10x3/uL (4.8-10.8)
[2018-04-10 23:55] LABS: ALBUMIN 3.1 g/dL (3.4-5.0); ALKALINE PHOSPHATASE 94 U/L (46-116); ALT (SGPT) 15 U/L (10-68); AMYLASE - SERUM 105 U/L (25-115); BILIRUBIN - TOTAL 0.37 mg/dL (0.2-1.3); CALC OSMOLALITY 284 mosm/kg (275-300); CARBON DIOXIDE 27.2 mmol/L (21.0-32.0); CHLORIDE - SERUM 107 mmol/L (98-107); CREATININE - SERUM 0.5 mg/dL (0.6-1.3); GLUCOSE 122 mg/dL (74-106); LIPASE 153 U/L (73-393); POTASSIUM - SERUM 3.7 mmol/L (3.5-5.1); PROTEIN - SERUM 6.9 g/dL (6.4-8.2); SODIUM 142 mmol/L (136-145); UREA NITROGEN 14 mg/dL (7-18); eGFR NON AFRICAN AMERICAN > 90 mL/min (90-120)
[2018-04-11 03:42] VITALS: BP 121/78
== END 2018-04-11 03:47 | disposition home or self-care (01) ==
LOC: D.ER 23:13
PROVIDERS: Family Medicine
DX: A08.4 Viral intestinal infection, unspecified (principal); G89.29 Other chronic pain; Z76.5 Malingerer [conscious simulation]; R19.7 Diarrhea, unspecified; G82.20 Paraplegia, unspecified; R10.13 Epigastric pain

== ENCOUNTER 2018-07-23 03:55 | Emergency (ER) | payer MEDICAID ==
[~2018-07-23] VITALS: Ht 160 cm; Wt 54.5 kg
[2018-07-23 04:00] VITALS: Ht 160 cm; Wt 54.5 kg
[2018-07-23 04:43] LABS: BASOPHILS 0.2 % (0-2); EOSINOPHILS 2.6 % (0-7); HEMATOCRIT 38.2 % (42.0-54.0); HEMOGLOBIN 12.9 g/dL (13.5-17.5); IMMATURE GRANULOCYTES 0.2 % (0-5); LYMPHOCYTES 32.6 % (15-50); MCH 33.5 pg (26.0-34.0); MCHC 33.8 g/dL (31.0-37.0); MCV 99.2 fL (80.0-100.0); MEAN PLATELET VOLUME 11.2 fL (7.4-10.4); MONOCYTES 11.7 % (2-11); NEUTROPHILS 52.7 % (40-80); PLATELET COUNT 128 10x3/uL (130-400); RBC 3.85 10x6/uL (4.20-6.10); WBC 6.5 10x3/uL (4.8-10.8)
[2018-07-23 04:49] LABS: APTT 34.7 SECONDS (22.8-39.4); INR 1.24 (0.85-1.17); PROTIME 15.1 SECONDS (11.6-15.0)
[2018-07-23 04:52] LABS: ALBUMIN 3.2 g/dL (3.4-5.0); ALKALINE PHOSPHATASE 99 U/L (46-116); ALT (SGPT) 16 U/L (10-68); BILIRUBIN - TOTAL 0.75 mg/dL (0.2-1.3); CALC OSMOLALITY 280 mosm/kg (275-300); CALCIUM 8.3 mg/dL (8.5-10.1); CARBON DIOXIDE 29.3 mmol/L (21.0-32.0); CHLORIDE - SERUM 106 mmol/L (98-107); CREATININE - SERUM 0.6 mg/dL (0.6-1.3); GLUCOSE 117 mg/dL (74-106); POTASSIUM - SERUM 3.7 mmol/L (3.5-5.1); PROTEIN - SERUM 6.9 g/dL (6.4-8.2); SODIUM 141 mmol/L (136-145); UREA NITROGEN 10 mg/dL (7-18); eGFR NON AFRICAN AMERICAN > 90 mL/min (90-120)
[2018-07-23 05:01] LABS: CKMB 0.3 U/L (0.0-3.6); CREATINE KINASE 61 UL (21-232); MAGNESIUM - SERUM 1.8 mg/dL (1.8-2.4); TROPONIN-I 0.025 ng/mL (0.000-0.060)
[2018-07-23 05:53] LABS: APPEARANCE CLOUDY (CLEAR); BILIRUBIN NEGATIVE (NEGATIVE); COLOR YELLOW (YELLOW); GLUCOSE NEGATIVE (NEGATIVE); KETONE NEGATIVE (NEGATIVE); NITRITE NEGATIVE (NEGATIVE); PROTEIN TRACE mg/dL (NEGATIVE); SPECIFIC GRAVITY 1.015 (1.005-1.020); UROBILINOGEN NORMAL (NORMAL)
[2018-07-23 05:54] LABS: BACTERIA MANY /hpf (NONE SEEN); EPITHELIAL CELLS 0-5 /hpf (0-5); RED CELLS - URINE 0-5 /hpf (0-5)
[2018-07-23] MEDS ORDERED: KEFLEX500 MG PO (07:15)
[2018-07-23 09:45] VITALS: BP 113/80
== END 2018-07-23 09:42 | disposition home or self-care (01) ==
LOC: D.ER 03:55
PROVIDERS: Family Medicine
DX: R07.89 Other chest pain (principal); I25.10 Atherosclerotic heart disease of native coronary artery without angina pectoris; G89.29 Other chronic pain; Z76.5 Malingerer [conscious simulation]; G82.20 Paraplegia, unspecified; N39.0 Urinary tract infection, site not specified

== ENCOUNTER 2018-08-15 01:10 | Emergency (ER) | payer MEDICAID ==
[~2018-08-15] VITALS: Ht 160 cm; Wt 56.7 kg
[~2018-08-15 01:10] MED LIST changes: +KEFLEX500 MG PO
[2018-08-15 01:13] VITALS: Ht 160 cm; Wt 56.7 kg
[2018-08-15 01:56] LABS: BASOPHILS 0.2 % (0-2); EOSINOPHILS 2.8 % (0-7); HEMATOCRIT 37.7 % (42.0-54.0); IMMATURE GRANULOCYTES 0.2 % (0-5); LYMPHOCYTES 34.8 % (15-50); MCH 33.8 pg (26.0-34.0); MCHC 34.5 g/dL (31.0-37.0); MCV 97.9 fL (80.0-100.0); MEAN PLATELET VOLUME 11.2 fL (7.4-10.4); MONOCYTES 14.4 % (2-11); NEUTROPHILS 47.6 % (40-80); PLATELET COUNT 128 10x3/uL (130-400); RBC 3.85 10x6/uL (4.20-6.10); RDW 12.5 % (11.5-14.5); WBC 5.1 10x3/uL (4.8-10.8)
[2018-08-15 02:11] LABS: ALBUMIN 3.2 g/dL (3.4-5.0); ALKALINE PHOSPHATASE 105 U/L (46-116); ALT (SGPT) 12 U/L (10-68); BILIRUBIN - TOTAL 0.57 mg/dL (0.2-1.3); CALC OSMOLALITY 283 mosm/kg (275-300); CALCIUM 8.3 mg/dL (8.5-10.1); CARBON DIOXIDE 27.5 mmol/L (21.0-32.0); CHLORIDE - SERUM 109 mmol/L (98-107); CREATININE - SERUM 0.6 mg/dL (0.6-1.3); GLUCOSE 89 mg/dL (74-106); POTASSIUM - SERUM 3.5 mmol/L (3.5-5.1); SODIUM 143 mmol/L (136-145); UREA NITROGEN 12 mg/dL (7-18); eGFR NON AFRICAN AMERICAN > 90 mL/min (90-120)
[2018-08-15 02:37] LABS: APPEARANCE HAZY (CLEAR); BILIRUBIN NEGATIVE (NEGATIVE); COLOR YELLOW (YELLOW); GLUCOSE NEGATIVE (NEGATIVE); KETONE NEGATIVE (NEGATIVE); NITRITE NEGATIVE (NEGATIVE); PROTEIN NEGATIVE (NEGATIVE); RED CELLS - URINE 0-5 /hpf (0-5); UROBILINOGEN NORMAL (NORMAL); WHITE CELLS - URINE 0-5 /hpf (0-5)
[2018-08-15 02:38] LABS: AMORPHOUS SEDIMENT >1+ /lpf (NONE SEEN); BACTERIA NONE SEEN /hpf (NONE SEEN); EPITHELIAL CELLS NSEEN /hpf (0-5); MUCUS <1+ /lpf (NONE SEEN)
[2018-08-15 03:44] VITALS: BP 109/81
== END 2018-08-15 03:44 | disposition home or self-care (01) ==
LOC: D.ER 01:10
PROVIDERS: Family Medicine
DX: J06.9 Acute upper respiratory infection, unspecified (principal); R11.10 Vomiting, unspecified

== ENCOUNTER 2018-09-03 10:04 | Emergency (ER) | payer MEDICAID ==
[~2018-09-03] VITALS: Ht 160 cm; Wt 56.8 kg
[2018-09-03 10:07] VITALS: Ht 160 cm; Wt 56.8 kg
[2018-09-03 10:48] LABS: BASOPHILS 0.2 % (0-2); HEMATOCRIT 38.9 % (42.0-54.0); HEMOGLOBIN 13.6 g/dL (13.5-17.5); IMMATURE GRANULOCYTES 0.2 % (0-5); LYMPHOCYTES 39.7 % (15-50); MCH 33.6 pg (26.0-34.0); MEAN PLATELET VOLUME 11.2 fL (7.4-10.4); MONOCYTES 12.9 % (2-11); PLATELET COUNT 133 10x3/uL (130-400); RBC 4.05 10x6/uL (4.20-6.10); RDW 12.4 % (11.5-14.5)
[2018-09-03 11:04] LABS: ALBUMIN 3.5 g/dL (3.4-5.0); ALKALINE PHOSPHATASE 86 U/L (46-116); ALT (SGPT) 11 U/L (10-68); BILIRUBIN - TOTAL 1.32 mg/dL (0.2-1.3); CALC OSMOLALITY 280 mosm/kg (275-300); CALCIUM 8.7 mg/dL (8.5-10.1); CARBON DIOXIDE 24.8 mmol/L (21.0-32.0); CHLORIDE - SERUM 105 mmol/L (98-107); CREATININE - SERUM 0.5 mg/dL (0.6-1.3); GLUCOSE 93 mg/dL (74-106); POTASSIUM - SERUM 3.6 mmol/L (3.5-5.1); PROTEIN - SERUM 7.3 g/dL (6.4-8.2); SODIUM 141 mmol/L (136-145); UREA NITROGEN 12 mg/dL (7-18); eGFR NON AFRICAN AMERICAN > 90 mL/min (90-120)
[2018-09-03 11:06] LABS: APPEARANCE CLOUDY (CLEAR); BILIRUBIN NEGATIVE (NEGATIVE); COLOR YELLOW (YELLOW); GLUCOSE NEGATIVE (NEGATIVE); KETONE NEGATIVE (NEGATIVE); NITRITE POSITIVE (NEGATIVE); PROTEIN NEGATIVE (NEGATIVE); WHITE CELLS - URINE OCC /hpf (0-5)
[2018-09-03 11:07] LABS: BACTERIA MANY /hpf (NONE SEEN); EPITHELIAL CELLS 0-5 /hpf (0-5); MUCUS <1+ /lpf (NONE SEEN); RED CELLS - URINE 0-5 /hpf (0-5)
[2018-09-03] MEDS ORDERED: FLAGYL500 MG PO (12:45)
[2018-09-03] MEDS ORDERED: DOXYCYCLINE HY100 M2 PO (12:45)
[2018-09-03 14:51] VITALS: BP 150/101
== END 2018-09-03 14:56 | disposition home or self-care (01) ==
LOC: D.ER 10:04
PROVIDERS: Emergency Medicine
DX: R04.2 Hemoptysis (principal); A59.9 Trichomoniasis, unspecified; N39.0 Urinary tract infection, site not specified

== ENCOUNTER 2018-12-05 21:45 | Emergency (ER) | payer MEDICAID ==
[~2018-12-05] VITALS: Ht 162.6 cm; Wt 56.8 kg
[2018-12-05 21:45] VITALS: Ht 162.6 cm; Wt 56.8 kg
[~2018-12-05 21:45] MED LIST changes: +DOXYCYCLINE HY100 M2 PO; +FLAGYL500 MG PO
[2018-12-05 23:02] LABS: BASOPHILS 0.2 % (0-2); HEMOGLOBIN 13.1 g/dL (13.5-17.5); LYMPHOCYTES 38.6 % (15-50); MCHC 34.5 g/dL (31.0-37.0); MCV 98.7 fL (80.0-100.0); MEAN PLATELET VOLUME 10.6 fL (7.4-10.4); MONOCYTES 12.7 % (2-11); NEUTROPHILS 45.5 % (40-80); PLATELET COUNT 136 10x3/uL (130-400); RBC 3.85 10x6/uL (4.20-6.10); RDW 13.5 % (11.5-14.5); WBC 4.4 10x3/uL (4.8-10.8)
[2018-12-05 23:29] LABS: ALBUMIN 3.1 g/dL (3.4-5.0); ALKALINE PHOSPHATASE 98 U/L (46-116); ALT (SGPT) 10 U/L (10-68); BILIRUBIN - TOTAL 0.39 mg/dL (0.2-1.3); CALC OSMOLALITY 284 mosm/kg (275-300); CALCIUM 8.7 mg/dL (8.5-10.1); CARBON DIOXIDE 28.5 mmol/L (21.0-32.0); CHLORIDE - SERUM 109 mmol/L (98-107); CREATININE - SERUM 0.6 mg/dL (0.6-1.3); GLUCOSE 95 mg/dL (74-106); PROTEIN - SERUM 6.7 g/dL (6.4-8.2); SODIUM 143 mmol/L (136-145); UREA NITROGEN 13 mg/dL (7-18); eGFR NON AFRICAN AMERICAN > 90 mL/min (90-120)
[2018-12-05 23:35] LABS: AMYLASE - SERUM 111 U/L (25-115); LIPASE 154 U/L (73-393)
[2018-12-05 23:37] LABS: TROPONIN-I < 0.017 ng/mL (0.000-0.060)
[2018-12-06 01:00] LABS: APPEARANCE HAZY (CLEAR); BACTERIA FEW /hpf (NONE SEEN); BILIRUBIN NEGATIVE (NEGATIVE); COLOR YELLOW (YELLOW); EPITHELIAL CELLS 0-5 /hpf (0-5); GLUCOSE NEGATIVE (NEGATIVE); KETONE SMALL mg/dL (NEGATIVE); NITRITE NEGATIVE (NEGATIVE); PROTEIN TRACE mg/dL (NEGATIVE); SPECIFIC GRAVITY 1.015 (1.005-1.020); WHITE CELLS - URINE 0-5 /hpf (0-5)
[2018-12-06 01:01] LABS: AMORPHOUS SEDIMENT <1+ /lpf (NONE SEEN); CALCIUM OXALATE CRYSTALS 0-5 /hpf (NONE SEEN)
[2018-12-06] MEDS ORDERED: ZANTAC300 MG PO (01:10)
[2018-12-06] MEDS ORDERED: TESSALON PERLE100 MG PO (01:10)
[2018-12-06] MEDS ORDERED: ZPAK PO (01:11)
[2018-12-06 02:29] VITALS: BP 97/67
== END 2018-12-06 02:30 | disposition home or self-care (01) ==
LOC: D.ER 21:45
PROVIDERS: Family Medicine
DX: R10.13 Epigastric pain (principal); R05 Cough; K21.9 Gastro-esophageal reflux disease without esophagitis; G82.50 Quadriplegia, unspecified; Z86.79 Personal history of other diseases of the circulatory system; Z76.5 Malingerer [conscious simulation]

== ENCOUNTER 2018-12-13 08:36 | Inpatient (IN) | payer MEDICAID ==
[2018-12-13] VITALS (10 sets, daily range): BP systolic 62–154; BP diastolic 38–85; Ht 162.6 cm; Wt 56.8 kg
[~2018-12-13] VITALS: Ht 162.6 cm; Wt 56.8 kg
--- NOTE | ~2018-12-13 | OP ---
PATIENT NAME: JACLYN RODRIGUEZ MEDICAL RECORD: [id number] :81 LOCATION:D.M2 D.2122 ADMISSION DATE:12/14/18 SURGEON: BULL MONTES DE OCA MD DATE OF OPERATION: 12/15/2018 PROCEDURES: 1. Left heart catheterization. 2. Selective coronary angiography. 3. Left ventriculogram. INDICATION: Angina, coronary artery disease, previous cardiac stenting, atrial fibrillation. PROCEDURE IN DETAIL: After informed consent was obtained and after a detailed description of the risks, benefits as well as alternative therapies, the patient elected to proceed with angiogram and heart catheterization. The right femoral area was prepped and draped in normal sterile fashion. Right femoral artery was cannulated via modified Seldinger technique with placement of 6-Setswana sheath. All catheters exchanged through this sheath. FINDINGS: Left ventriculogram was performed in standard 30-degree WANG view, reveals good cardiac wall motion throughout all segments. Overall ejection fraction estimated 60%. SELECTIVE CORONARY ANGIOGRAPHY: 1. Left main is with no significant angiographic disease. 2. Left anterior descending has a previously placed stent with questionable in-stent restenosis; however, IFR was normal at 0.91. 3. Left circumflex has moderate irregularities, but no flow-limiting stenosis. 4. Right coronary has moderate irregularities, but no flow-limiting stenosis. OVERALL IMPRESSION: No significant restenosis of the previously placed stent, no disease elsewise. Center medical management on treatment of the atrial fibrillation. TRANSINT:[id number] Voice Confirmation ID: [id number] DOCUMENT ID: [id number] BULL MONTES DE OCA MD CC: [id number] DICTATION DATE: 12/15/18 1021 SECTION REPAIRER: 12/15/18 1113 ADM IN [address] [address] [place] [address]
--- NOTE | ~2018-12-13 | HEMODYNAMI ---
PATIENT:JACLYN RODRIGUEZ MEDICAL RECORD: [id number] : 81 [facility] [id number] ADMISSION DATE: 12/14/18 Generatedon:12/15/201810:19 Patient name: JACLYN RODRIGUEZ Patient #: [id number] : 1985 Date of study: 12/15/2018 Page: Of Hemodynamic Procedure Report Patient Data Patient Demographics Procedure consent was obtained First Name: JACLYN Gender: Male Last Name: MICHAEL : 1985 Middle Initial: W Age: 33 year(s) Patient #: [id number] Race: Black SSN: [id number] Additional ID: [id number] Contact details [address]: [address] [place] [address] State: [place] City: [place] Zip code: [address] Past Medical History Allergies Allergen Reaction Date Comments Reported Other allergy 04/24/2016 Morphine Admission Admission Data Admission Date: 12/14/2018 Admission Time: 15:27 Room #: D.2122 Height (in.): 64 BSA: 1.6 (m2) Height (cm.): 162.56 BMI: 21.46 (kg/m2) Weight (lbs.): 125 Weight (kg.): 56.7 Lab Results Lab Result Date: 12/15/2018 Lab Result Time: 0:00 Biochemistry Name Units Result Min Max BUN mg/dl 12 --(-*--)-- 7 18 Creatinine mg/dl 0.4 *-(----)-- 0.6 1.3 eGFR ml/min 90 --(*---)-- 90 120 AM CBC Name Units Result Min Max Hemoglobin g/dl 12.5 *-(----)-- 13.5 17.5 Platelets 10^3/l 134 --(*---)-- 130 400 Procedure Procedure Types Cath Procedure Diagnostic Procedure [facility] w/Coronaries FFR/IVUS FFR Initial Sedation Charges Moderate Sedation up to 30 minutes Procedure Description Procedure Date Procedure Date: 12/15/2018 Procedure Start Time: 10:06 Procedure End Time: 10:17 Procedure Staff Name Function Oswaldo Tran MD Performing Physician Mariposa Suarez RT Monitor Juan Manuel Lynch RN Nurse Femi Weber RT Scrub Zoe Leon RT Scrub Procedure Data Cath Procedure Fluoroscopy Diagnostic fluoroscopy Total fluoroscopy Time: 1.9 time: 1.9 min min Diagnostic fluoroscopy Total fluoroscopy dose: 100 dose: 100 mGy mGy Contrast Material Contrast Material Type Amount (ml) Isovue 300 64 Entry Location Entry Primary Successful Side Size Upsize Upsize Entry Closure Succes sful Closure Location (Fr) 1 (Fr) 2 (Fr) Remarks Device Remarks Femoral Right 5 Fr 6 Fr Exoseal artery Short Estimated blood loss: 5 ml Diagnostic catheters Device Type Used For End Catheter Placement MULTIPACK Pigtail 5 Fr LV Angiography catheter MULTIPACK JL 4.0 5Fr Left Coronary catheter Angiography MULTIPACK 3DRC 5Fr Right Coronary catheter Angiography Procedure Complications No complications Procedure Medications Medication Administration Route Dosage Oxygen etCO2 Nasal cannula 2 l/min Heparin Flush Bag added to field 2 bags (1000units/500ml NS) 0.9% NaCl I.V. 100 ml/hr Lidocaine 2% added to field 20 Fentanyl I.V. 50 mcg Versed I.V. 1 mg Fentanyl I.V. 50 mcg Versed I.V. 1 mg Fentanyl I.V. 50 mcg Versed I.V. 1 mg Fentanyl I.V. 50 mcg Fentanyl I.V. 50 mcg Versed I.V. 1 mg Versed I.V. 1 mg Hemodynamics Rest BSA: 1.6 (m2) HGB: 12.5 (g/dl) O2 Consumption: Estimated: 190.5 (ml/min) O2 Cons umption indexed: Estimated:119.06 (ml/min/m) Heart Rate: 58 (bpm) Pressure Samples Time Site Value (mmHg) Purpose Heart Use Rate(bpm) 10:07 LV 59/9,12 Snapshot 91 Snapshots Pre Cath Intra NCS Post Cath Vital Signs Time Heart Resp SPO2 etCO2 NIBP (mmHg) Rhythm Pain Sedation Rate (ipm) (%) (mmHg) Status Level (bpm) 9:16:34 57 17 100 37.4 169/96(125) NSR 0 (11) 10(A) , No pain 9:24:49 68 16 99 25.4 165/86(114) NSR 0 (11) 10(A) , No pain 9:30:36 59 17 100 41.2 154/81(108) NSR 0 (11) 10(A) , No pain 9:38:47 65 17 100 32.9 158/91(121) NSR 0 (11) 10(A) , No pain 9:43:18 57 16 100 30.7 152/88(121) NSR 0 (11) 10(A) , No pain 9:52:26 72 16 100 19.4 177/88(131) NSR 0 (11) 10(A) , No pain 10:05:27 57 16 100 0 125/90(108) NSR 0 (11) 9(A) , No pain 10:09:27 65 17 100 21.7 139/93(113) NSR 0 (11) 9(A) , No pain 10:13:30 60 17 100 25.4 150/94(122) NSR 0 (11) 9(A) , No pain 10:17:36 62 16 100 0 148/104(121) NSR 0 (11) 9(A) , No pain Medications Time Medication Route Dose Verified Delivered Reason Notes Effe ctiveness by by 9:15:54 Oxygen etCO2 2 Oswaldo Juan Manuel Per Nasal l/min Marc Lynch RN physician cannula 9:16:02 Heparin Flush added 2 Oswaldo Juan Manuel used for Bag to bags Marc Lynch RN procedure (1000units/500ml field NS) 9:16:09 0.9% NaCl I.V. 100 Oswaldo Juan Manuel Per ml/hr Marc Lynch RN physician 9:16:17 Lidocaine 2% added 20ml Oswaldo Juan Manuel used for to vial Marc Lynch RN procedure field 9:51:32 Fentanyl I.V. 50 Oswaldo Recioy for mcg Marc Lynch RN sedation 9:51:39 Versed I.V. 1 mg Oswaldo Zambrano for Marc Lynch RN sedation 9:54:29 Fentanyl I.V. 50 Oswaldo Juan Manuel for mcg Marc Lynch RN sedation 9:54:33 Versed I.V. 1 mg Oswaldo Zambrano for Marc Lynch RN sedation 9:58:17 Fentanyl I.V. 50 Oswaldo Juan Manuel for blanquita Lynch RN sedation 9:58:21 Versed I.V. 1 mg Oswaldo Zambrano for Marc Lynch RN sedation 10:01:48 Fentanyl I.V. 50 Oswaldo Zambrano for blanquita Lynch RN sedation 10:04:45 Fentanyl I.V. 50 Oswaldo Zambrano for blanquita Lynch RN sedation 10:07:02 Versed I.V. 1 mg Oswaldo Zambrano for Marc Lynch RN sedation 10:10:45 Versed I.V. 1 mg Oswaldo Zambrano for Marc Lynch RN sedation Procedure Log Time Note 8:45:00 Mariposa Suarez RT(R) sent for patient. Start room use. 8:50:05 Informed consent obtained and on chart 8:53:27 Patient Height : 64 inches 8:53:35 Patient Weight : 125 lbs 8:55:23 Lab Result : Creatinine 0.4 mg/dl 8:55:23 Lab Result : BUN 12 mg/dl 8:55:24 Lab Result : Platelets 134 10^3/l 8:55:24 Lab Result : Hemoglobin 12.5 g/dl 8:55:24 Lab Result : eGFR AM 90 ml/min 8:58:44 Procedure Status Urgent Heart Cath (IP). 8:58:53 ACC Patient presents with Unstable Angina CCS Anginal Class 4--Inability to carry out any physical activity w/o angina. Angina may occur at rest. 8:58:57 ACCPatient has been prescribed/administered the following anti-anginal medication within the last 2 weeks: None 8:59:18 Time tracking: Regular hours (M-F 7:00 - 5:00) 8:59:22 Plan of Care:Hemodynamics will remain stable., Cardiac rhythm will remain stable., Comfort level will be maintained., Respiratory function will remain adequate., Patient/ family verbilizes understanding of procedure., Procedure tolerated without complication., Recovers from procedure without complications.. 9:06:46 Patient received from PCU to CCL 2 Alert and oriented. Tansferred to table in Supine position. 9:06:51 Warm blankets applied, and vish hugger turned on for patient comfort. 9:06:52 Correct patient and procedure confirmed by team. 9:06:53 ECG and BP/O2 sat monitors applied to patient. 9:09:12 1) 90+ Normal kidney functon but urine findings or structural abnormalities or genetic trait point to kidney disease. 9:09:15 Maximum allowable contrast dose (3.7 X eGFR X 0.75)250 ml. 9:10:23 Use device set Femoral Dx 9:10:26 ACIST Hand Control (66183) opened to sterile field. 9:10:26 ACIST Manifold (47136) opened to sterile field. 9:10:27 Tegaderm 4 x 4 (1626W) opened to sterile field. 9:10:28 ACIST Syringe (51410) opened to sterile field. 9:10:29 Bag Decanter (2002S) opened to sterile field. 9:10:29 Medline Cath Pack ([id number]) opened to sterile field. 9:10:31 DIAGNOSTIC Multipack 5Fr catheter set ([id number]) opened to sterile field. 9:10:32 SHEATH 5FR Russell (UMC176) opened to sterile field. 9:10:32 EMERALD Guide Wire (818-190) opened to sterile field. 9:10:52 H&P Date Dictated: 12/13/2018 Within 30 days and on chart.. 9:10:53 Pre-procedure instructions explained to patient. 9:10:53 Pre-op teaching completed and patient verbalized understanding. 9:10:56 Family in patients room. 9:10:57 Patient NPO since Midnight. 9:11:01 Is the patient allergic to Iodine/contrast media? No. 9:11:10 Is patient on blood thinner?No 9:11:14 ACC The patient was administered the following blood thiners within the last 24 hours: ACCAspirin 9:11:16 Patient diabetic? No. 9:11:18 Previous problem with sedation/anesthesia? No ? 9:11:19 Snore? No 9:11:25 Sleep apnea? No 9:11:25 Deviated septum? No 9:11:26 Opens mouth fully? Yes 9:11:27 Sticks out tongue? Yes 9:11:28 Airway obstruction? No ? 9:11:30 Dentures? No ? 9:11:33 Pre procedure: right dorsailis pedis pulse 1+ Palpable, but thready & weak; easily obliterated 9:11:36 Patient pain scale 0/10 ?. 9:11:46 IV patent on arrival in port with 0.9% NaCl at KVO. 9:11:48 Lab results completed and on chart. 9:11:51 Right groin area was prepped with chlora-prep and draped in sterile fashion 9:11:52 Alarms reviewed by R. N. 9:11:53 Sharps counted by scrub and verified by R.N. 9:15:43 Vital chart was started 9:15:54 Oxygen 2 l/min etCO2 Nasal cannula was administered by Juan Manuel Lynch RN; Per physician; 9:16:02 Heparin Flush Bag (1000units/500ml NS) 2 bags added to field was administered by Juan Manuel Lynch RN; used for procedure; 9:16:09 0.9% NaCl 100 ml/hr I.V. was administered by Juan Manuel Lynch RN; Per physician; 9:16:17 Lidocaine 2% 20ml vial added to field was administered by Juan Manuel Lynch RN; used for procedure; 9::51 Timer 1 started at 9:17 AM, stopped at 9:29 AM, duration 00:12:14 sec. 9:32:52 Zero performed for pressure channel P1 9:33:22 Baseline sample Acquired. 9:48:03 Physician arrived 9:48:03 --------ALL STOP TIME OUT------ 9:48:38 Final Timeout: patient, procedure, and site verified with staff and physician. All members of the team are in agreement. 9:48:41 Right groin site verified by team. 9:49:04 Fire Safety Assessment: A--An alcohol-based skin anteseptic being used preoperatively., C--Open oxygen or nitrous oxide is being used., D--An ESU, laser, or fiber-optic light is being used. 9:49:10 Physical assessment completed. ASA score P 2 - A patient with mild systemic disease as per Oswaldo Tran MD. 9:51:32 Fentanyl 50 mcg I.V. was administered by Juan Manuel Lynch RN; for sedation; 9:51:39 Versed 1 mg I.V. was administered by Juan Manuel Lynch RN; for sedation; 9:54:29 Fentanyl 50 mcg I.V. was administered by Juan Manuel Lynch RN; for sedation; 9:54:33 Versed 1 mg I.V. was administered by Juan Manuel Lynch RN; for sedation; 9:58:17 Fentanyl 50 mcg I.V. was administered by Juan Manuel Lynch RN; for sedation; 9:58:21 Versed 1 mg I.V. was administered by Juan Manuel Lynch RN; for sedation; 10:01:48 Fentanyl 50 mcg I.V. was administered by Juan Manuel Lynch RN; for sedation; 10:04:17 Procedure started. 10:04:17 Full Disclosure recording started 10:04:45 Fentanyl 50 mcg I.V. was administered by Juan Manuel Lynch RN; for sedation; 10:06:42 Local anesthetic to right femoral artery with Lidocaine 2% by Oswaldo Tran MD.INITIAL ACCESS ONLY 10:07:02 Versed 1 mg I.V. was administered by Juan Manuel Lynch RN; for sedation; 10:07:28 A 5 Fr sheath was inserted into the Right Femoral artery 10:08:03 A MULTIPACK Pigtail 5 Fr catheter was advanced over the wire and used for LV Angiography. 10:08:08 LV hemodynamics recorded. 10:08:09 LV gram done using WANG 10:08:12 Injector settings: Ml/sec: 5, Volume: 15, 10:08:21 EF : 55 % 10:08:25 Catheter removed. 10:08:34 A MULTIPACK JL 4.0 5Fr catheter was advanced over the wire and used for Left Coronary Angiography. 10:08:55 LCA angiography performed. 10:08:58 Injector settings: Ml/sec: 3, Volume: 6, 10:09:58 Catheter removed. 10:10:03 A MULTIPACK 3DRC 5Fr catheter was advanced over the wire and used for Right Coronary Angiography. 10:10:08 RCA angiography performed. 10:10:10 Injector settings: Ml/sec: 3, Volume: 6, 10:10:45 Versed 1 mg I.V. was administered by Juan Manuel Lynch RN; for sedation; 10:11:12 GUIDE 6FR XBLAD 3.5 catheter ([id number]) opened to sterile field. 10:11:12 Calhoun Verrata Plus pressure wire (26482L) opened to sterile field. 10:11:13 INFLATOR Merit BasixCompak (ZC5225) opened to sterile field. 10:11:15 SHEATH 6FR Russell (YNO136) opened to sterile field. 10:11:32 Sheath upsized to a 6 Fr Short. 10:11:38 6 Fr xblad 3.5 guide catheter was inserted over the wire 10:11:42 FFR/IFR wire advanced. 10:13:05 Baseline FFR 1. 10:14:01 Wire advanced across lesion. 10:15:02 mLAD lesion measured at 0.91 with IFR 10:15:08 mLAD lesion measured at 0.93 with IFR 10:15:35 Wire removed. 10:15:36 Guide catheter removed. 10:15:45 EXOSEAL 6Fr (EX600) opened to sterile field. 10:15:55 Sheath removed intact; hemostasis achieved with Exoseal to the Right Femoral artery. 10:15:59 Procedure ended.(Physican Out) 10:16:21 Fluoroscopy time 01.90 minutes. 10:16:25 Fluoroscopy dose: 100 mGy 10:16:25 Flurop Dose total: 100 10:16:32 Dose Area Product 5501 mGy/cm. 10:16:38 Contrast amount:Isovue 300 64ml. 10:16:40 Sharps counted by scrub and verified by R.N. 10:16:42 Insertion/operative site no bleeding no hematoma. 10:16:45 Post-op/insertion site Right Femoral artery dressed using a 4 x 4 and Tegaderm. 10:16:47 Post Procedure Pulses reassessed and unchanged 10:16:50 Post procedure rhythm: unchanged. 10:16:53 Estimated blood loss: 5 ml 10:16:54 Post procedure instruction explained to patient.Patient verbalizes understanding. 10:16:55 Patient needs reinforcement of post procedure teaching. 10:17:07 Procedure type changed to Cath procedure, Diagnostic procedure, LHC, LHC w/Coronaries, FFR/IVUS, FFR Initial, Sedation Charges, Moderate Sedation up to 30 minutes 10:17:37 Procedure and supply charges have been captured, reviewed, submitted and are correct. 10:17:41 Procedure Complication : No complications 10:17:43 Vital chart was stopped 10:17:43 See physician's report for complete and final results. 10:17:46 Report given to Med II. 10:17:49 Patient transfered to Med II with Stretcher. 10:17:52 Procedure ended. 10:17:52 Full Disclosure recording stopped 10:18:02 End room use (Document Last) Device Usage Item Name Manufacture Quantity Catalog Hospital Part Current Minima l Lot# / Number Charge Number Stock Stock Serial# Code ACIST Hand Acist 1 28584 510381 727619 955199 5 Control Medical (65054) Systems Inc ACIST Acist 1 60952 910384 656766 734243 5 Manifold Medical (97832) Systems Inc Tegaderm 4 3M 1 1626W 704469 867122 977722 5 x 4 (1626W) ACIST Acist 1 26397 198111 064316 788814 20 Syringe Medical (83321) Systems Inc Bag Microtek 1 2001S 252264 07296 830692 5 Decanter Medical Inc. (2001S) Medline Medline 1 [id number] 270094 67537 627143 5 Cath Pack ([id number]) DIAGNOSTIC Cardinal 1 JN8785 549573 55967 975929 30 Multipack Health 5Fr catheter set (AG2449) SHEATH 5FR Terumo 1 WMT061 247273 585661 249915 5 Russell (QQT685) EMERALD Cardinal 1 502-455 388598 773138 269312 5 Guide Wire Health (502-455) MULTIPACK Cardinal 1 423131 5 Pigtail 5 Health Fr catheter MULTIPACK Cardinal 1 450515 5 JL 4.0 5Fr Health catheter MULTIPACK Cardinal 1 544971 5 3DRC 5Fr Health catheter GUIDE 6FR Cardinal 1 [id number] 600113 997842 969186 10 XBLAD 3.5 Health catheter (47215663) Calhoun Calhoun 1 08405D 126254 122703230 721250 5 Verrata Plus pressure wire (34828R) INFLATOR Merit 1 IB2541 577380 716519 017550 15 Neighborhoods Medical BasixCompak (YD8518) SHEATH 6FR Terumo 1 BLR241 544484 045810 357452 40 Russell (WDH161) EXOSEAL 6Fr Cardinal 1 EX600 031346 075007 709891 10 (EX600) Health Signature Audit [place] Stage Time Signature Unsigned Intra-Procedure 12/15/2018 Mariposa Suarez 10:19:03 AM RT(R) Signatures Performing Physician : Signature : Oswaldo Tran MD Date : Time : Monitor : Mariposa Erick RT Signature : Date : Time : Nurse : Juan Manuel Lynch RN Signature : Date : Time : [address] [place] [address]
[~2018-12-13 08:36] MED LIST changes: +TESSALON PERLE100 MG PO; +ZANTAC300 MG PO; +ZPAK PO
--- NOTE | 2018-12-13 08:45 | NUR ---
PATIENT HAS AN INDEWELLING HANSEN CATH AND COLOSTOMY BAG; UPON ARRIVAL
[2018-12-13 09:18] LABS: APPEARANCE SL CLDY (CLEAR); BILIRUBIN NEGATIVE (NEGATIVE); COLOR YELLOW (YELLOW); GLUCOSE NEGATIVE (NEGATIVE); KETONE MODERATE mg/dL (NEGATIVE); NITRITE POSITIVE (NEGATIVE); PROTEIN TRACE mg/dL (NEGATIVE); SPECIFIC GRAVITY 1.015 (1.005-1.020)
[2018-12-13 09:18] LABS: BASOPHILS 0.2 % (0-2); EOSINOPHILS 2.1 % (0-7); HEMATOCRIT 41.5 % (42.0-54.0); HEMOGLOBIN 14.7 g/dL (13.5-17.5); IMMATURE GRANULOCYTES 0.2 % (0-5); LYMPHOCYTES 38.8 % (15-50); MCH 34.4 pg (26.0-34.0); MCHC 35.4 g/dL (31.0-37.0); MCV 97.2 fL (80.0-100.0); MEAN PLATELET VOLUME 11.4 fL (7.4-10.4); MONOCYTES 12.3 % (2-11); NEUTROPHILS 46.4 % (40-80); PLATELET COUNT 152 10x3/uL (130-400); RBC 4.27 10x6/uL (4.20-6.10); RDW 13.8 % (11.5-14.5); WBC 4.3 10x3/uL (4.8-10.8)
[2018-12-13 09:19] LABS: BACTERIA MANY /hpf (NONE SEEN); EPITHELIAL CELLS 0-5 /hpf (0-5); MUCUS <1+ /lpf (NONE SEEN); RED CELLS - URINE NONE SEEN /hpf (0-5); WHITE CELLS - URINE 0-5 /hpf (0-5)
[2018-12-13 09:27] LABS: APTT 32.4 SECONDS (22.8-39.4); INR 1.16 (0.85-1.17); PROTIME 14.3 SECONDS (11.6-15.0)
[2018-12-13 09:30] LABS: D-DIMER-QUANTITATIVE 1.15 ug/mLFEU (0.20-0.54)
--- NOTE | 2018-12-13 09:30 | NUR ---
CRITICAL LABD-DIMER 1.15; RECEIVED FROM [facility] IN THE LAB. ISIDRO CAMEJO NOTIFIED.
[2018-12-13 09:33] LABS: ALBUMIN 3.8 g/dL (3.4-5.0); ALKALINE PHOSPHATASE 95 U/L (46-116); ALT (SGPT) 16 U/L (10-68); BILIRUBIN - TOTAL 0.98 mg/dL (0.2-1.3); CALC OSMOLALITY 277 mosm/kg (275-300); CALCIUM 9.5 mg/dL (8.5-10.1); CARBON DIOXIDE 19.4 mmol/L (21.0-32.0); CHLORIDE - SERUM 104 mmol/L (98-107); CREATININE - SERUM 0.6 mg/dL (0.6-1.3); GLUCOSE 92 mg/dL (74-106); POTASSIUM - SERUM 3.3 mmol/L (3.5-5.1); PROTEIN - SERUM 7.4 g/dL (6.4-8.2); SODIUM 140 mmol/L (136-145); UREA NITROGEN 11 mg/dL (7-18); eGFR NON AFRICAN AMERICAN > 90 mL/min (90-120)
--- NOTE | 2018-12-13 09:35 | NUR ---
DILAUDID HELD DUE TO HYPOTENSION; WILL REASESS TO GIVE TO PATIENT LATER.
[2018-12-13 09:42] LABS: CKMB 0.7 U/L (0.0-3.6); CREATINE KINASE 66 UL (21-232); MAGNESIUM - SERUM 1.7 mg/dL (1.8-2.4); PRO BNP 44 pg/mL (0-125); THYROID STIMULATING HORMONE 0.74 uIU/mL (0.36-3.74)
[2018-12-13 09:43] LABS: TROPONIN-I < 0.017 ng/mL (0.000-0.060)
--- NOTE | 2018-12-13 12:12 | NUR ---
TRANSFER FROM ER BY STRETCHER. OREINTED TO ROOM. CALL LIGHT IN REACH. WILL CONT. PLAN OF CARE.
--- NOTE | 2018-12-13 13:04 | NUR ---
CONSENTS SIGNED FOR [facility]. WILL CONT. PLAN OF CARE.
--- NOTE | 2018-12-13 14:19 | NUR ---
URINE SPECIMEN COLLECTED AND TAKEN TO LAB. WILL MONITOR.
[2018-12-13 14:41] LABS: CKMB 1.1 U/L (0.0-3.6); CREATINE KINASE 68 UL (21-232)
[2018-12-13 14:42] LABS: TROPONIN-I < 0.017 ng/mL (0.000-0.060)
--- NOTE | 2018-12-13 16:41 | NUR ---
BILAT SCDS ON ORDERED.
--- NOTE | 2018-12-13 19:09 | NUR ---
RECIEVED UP IN BED WITH EYES OPEN.ALERT AND ORIENTED X4. QUADRAPLEGIC. REQUIRES TOTAL CARE. CONDOM CATH INTACT WITH CLEAR YELLOW URINE DRAINING TO BEDSIDE DRAINAGE BAG. TELEMETRY IN PLACE. SCD'S IN PLACE. DSG TO LEFT THIGH CDI. DENIES ANY NEEDS AT THIS TIME.
[2018-12-13 20:05] LABS: CREATINE KINASE 69 UL (21-232)
[2018-12-13 20:09] LABS: TROPONIN-I < 0.017 ng/mL (0.000-0.060)
[2018-12-14] VITALS: BP 108/66
[2018-12-14 04:00] VITALS: BP 122/83
--- NOTE | 2018-12-14 06:21 | NUR ---
CONDOM CATH OFF THIS AM. REPLACED. COLOSTOMY BAG FULL WITH LIGHT BROWN LIQUID STOOL.
[2018-12-14 06:31] LABS: HEMATOCRIT 35.8 % (42.0-54.0); HEMOGLOBIN 12.5 g/dL (13.5-17.5); MCH 34.2 pg (26.0-34.0); MCHC 34.9 g/dL (31.0-37.0); MCV 98.1 fL (80.0-100.0); MEAN PLATELET VOLUME 10.9 fL (7.4-10.4); PLATELET COUNT 134 10x3/uL (130-400); RBC 3.65 10x6/uL (4.20-6.10); RDW 13.7 % (11.5-14.5); WBC 4.6 10x3/uL (4.8-10.8)
[2018-12-14 06:39] LABS: CALC OSMOLALITY 277 mosm/kg (275-300); CALCIUM 8.4 mg/dL (8.5-10.1); CHLORIDE - SERUM 107 mmol/L (98-107); GLUCOSE 85 mg/dL (74-106); POTASSIUM - SERUM 3.6 mmol/L (3.5-5.1); SODIUM 140 mmol/L (136-145); UREA NITROGEN 12 mg/dL (7-18)
[2018-12-14 06:43] LABS: CARBON DIOXIDE 26.7 mmol/L (21.0-32.0); CREATININE - SERUM 0.4 mg/dL (0.6-1.3); eGFR NON AFRICAN AMERICAN > 90 mL/min (90-120)
--- NOTE | 2018-12-14 07:25 | NUR ---
ROUNDING DONE WITH PATIENT BEING A GUAD, MOUTH BLOW PEICE IN USE FOR CALL LIGHT. NPO STATUS FOR HEART CATH TODAY. PATIENT HAS A [place] CONDOM CATH CCONEECTED TO HANSEN CATH BAG. ON EP, K+ IS 3.6 THIS AM. ON HEART MONITOR SHOWING SR, HR 66. PERMITS ARE SIGNED AND IN CHART. RIGHT IP PIV SEEN WITH SALINE LOCK. BILATERAL SCD'S ON AND IN USE. LEFT COLOSTOMY SEEN. C/O PAIN, ORAL PAIN MEDS GIVEN WITH SIP OF WATER.
[2018-12-14 08:30] VITALS: BP 112/83
--- NOTE | 2018-12-14 08:57 | NUR ---
MAG 1.6, PER PROTOCOL WITH PATIENT NPO FOR HEART CATH, MAG SULFATE 2 GM GIVEN.
--- NOTE | 2018-12-14 09:42 | NUR ---
NO DRESSING SEEN TO LEFT THIGH PER TRAINING AND DEVELOPMENT REP REPORT. THERE IS A DRY WHITE INTACT DRESSING SEEN TO RIGHT BUTTOCK ALONG WITH OLD HEALED PINK AREA TO COCCYX.
--- NOTE | 2018-12-14 10:11 | NUR ---
I CALLED MARGRET IN PHARMACY FOR DAKIN'S THERE IS NONE IN THE ROOM OR PATIENT CASSETTE. IT SHOWED THAT IT WAS SCANNED.
[2018-12-14 10:28] LABS: EOSINOPHILS 4 % (0-7); LYMPHOCYTES 46 % (15-50); MONOCYTES 14 % (2-11); NEUTROPHILS 28 % (40-80)
[2018-12-14 10:29] LABS: PLATELET ESTIMATE NORMAL; ROULEAUX OCC
--- NOTE | 2018-12-14 12:08 | NUR ---
DRESSING TO RIGHT BUTTOCK CHANGED ORDERED. DATED.
[2018-12-14 12:32] VITALS: BP 115/85
--- NOTE | 2018-12-14 14:10 | NUR ---
STILL NPO STATUS FOR HEART CATH. STARTED NS TO INFUSE AT 25 CC/HR WHILE WAITING.
--- NOTE | 2018-12-14 15:29 | NUR ---
PATIENT IS MADE AWARE OF HEART CATH PROCEDURE CHANGING TILL TOMORROW. SUPPER TRAY IS ORDERED. I ASKED PATIENT TO PLEASE CALL HIS FAMILY MEMBER TO LET THEM KNOW. PATIENT WILL BE NPO PAST MIDNIGHT.
[2018-12-14 16:26] VITALS: BP 126/96
--- NOTE | 2018-12-14 17:40 | NUR ---
REPLACED [place] CONDOM CATH IT FELL OFF. COMPLETE BED LINEN CHANGE DONE.
[2018-12-14 20:00] VITALS: BP 132/96
--- NOTE | 2018-12-14 20:03 | NUR ---
RECIEVED LAYIND IN BED WITH EYES OPEN AND TV ON. ALERT AND ORIENTED X4. HANDS FREE CALL LIGHT IN PLACE. CONDOM CATH INTACT WITH CLEAR YELLOW URINE DRAINING TO BEDSIDE DRAINAGE SYSTEM. COLOSTOMY BAG INTACT. REQUIES TOTAL CARE. DENIES ANY NEEDS AT THIS TIME.
[2018-12-15] VITALS: BP 131/92
[2018-12-15 04:00] VITALS: BP 153/98
[2018-12-15 05:54] LABS: CALC OSMOLALITY 275 mosm/kg (275-300); CALCIUM 8.3 mg/dL (8.5-10.1); CHLORIDE - SERUM 105 mmol/L (98-107); CREATININE - SERUM 0.4 mg/dL (0.6-1.3); GLUCOSE 74 mg/dL (74-106); POTASSIUM - SERUM 3.8 mmol/L (3.5-5.1); SODIUM 139 mmol/L (136-145); UREA NITROGEN 10 mg/dL (7-18); eGFR NON AFRICAN AMERICAN > 90 mL/min (90-120)
[2018-12-15 06:43] LABS: BASOPHILS 0 % (0-2); EOSINOPHILS 2.8 % (0-7); HEMATOCRIT 36.7 % (42.0-54.0); HEMOGLOBIN 12.6 g/dL (13.5-17.5); IMMATURE GRANULOCYTES 0.2 % (0-5); LYMPHOCYTES 37.1 % (15-50); MCH 33.4 pg (26.0-34.0); MCHC 34.3 g/dL (31.0-37.0); MCV 97.3 fL (80.0-100.0); MEAN PLATELET VOLUME 11.7 fL (7.4-10.4); NEUTROPHILS 44.9 % (40-80); PLATELET COUNT 148 10x3/uL (130-400); RBC 3.77 10x6/uL (4.20-6.10); RDW 13.6 % (11.5-14.5); WBC 5.3 10x3/uL (4.8-10.8)
--- NOTE | 2018-12-15 07:59 | NUR ---
ASSESSMENT COMPLETED. TELEMERTY SHOWS SR. ALERT AND ORIENTED. PT IS A QUAD AND BEDFAST.SCDS ON. PT HAS A BLOW PEICE FOR USE OF CALL LIGHT. RIGHT CHEST IP. COLOSTOMY T LEFT SIDE. DRSG TO RIGHT BUTTOCK. WILL MONITOR
[2018-12-15 08:33] VITALS: BP 162/117
--- NOTE | 2018-12-15 09:53 | CN ---
PATIENT NAME:JACLYN RODRIGUEZ MEDICAL RECORD: [id number] : 81 LOCATION:[facility] D.2122 ADMIT DATE: 12/14/18 ACCOUNT: [id number] CONSULTING PHYSICIAN: BULL MONTES DE OCA MD REFERRING PHYSICIAN: RAHUL DEJESUS MD DATE OF CONSULTATION: 12/13/2018 DIAGNOSES: 1. Unstable angina. 2. Abnormal ECG. 3. Atrial fibrillation with rapid ventricular response. 4. C4 partial quadriplegic. 5. Coronary artery disease. 6. Previous PTCA and stent. HISTORY OF PRESENT ILLNESS: Mr. Rodriguez presents with severe chest discomfort that awoke him. He has a history of coronary artery disease. This is like his previous angina. His last PTCA and stent was a number of years ago. He had severe chest discomfort, radiating to his back into his jaw area. He did not feel palpitations. When he presented to the Emergency Room, he was in atrial fibrillation with rapid ventricular response. He received one bolus of Cardizem. This converted him to sinus bradycardia and he had hypotension with this. His systolic blood pressure usually runs in the 90-100 range, so the hypotension is nothing new for him. It precludes any cardiac medications due to the hypotension. He had significant ST-T changes inferolaterally compared to the EKG with the atrial fibrillation with rapid ventricular response and the EKG after conversion to sinus rhythm. His chest pain resolved. His initial troponin is normal. PHYSICAL EXAMINATION: GENERAL APPEARANCE: Well-nourished, well-developed, appears stated age. Level of distress, comfortable. PSYCHIATRIC: Mental status, alert, normal affect. Orientation, oriented to time, place and person. EYES: Lids and conjunctiva, noninjected. No discharge, no pallor. ENT: Lips, teeth, gums, normal dentition. Oropharynx, no cyanosis, no pallor. NECK: Carotid arteries, bilateral normal upstroke, no bruits, no thrills. JUGULAR VEINS: No jugular venous pressure or distention. CERVICAL LYMPH NODES: Nontender, nonenlarged. THYROID: Not enlarged. Nontender. No nodules. LUNGS: Respiratory effort, unlabored. CHEST: Normal curvature. No thoracic deformity. No chest wall tenderness. Percussion, resonant. Auscultation, clear. No wheezes, no rales, no rhonchi. CARDIOVASCULAR: Precordial exam, nondisplaced. No heaves or pericardial thrills. Rate and rhythm, regular. Heart sounds, normal S1, normal S2. No S3, no gallop, no rub. Systolic murmur, not heard. Diastolic murmur, not heard. EXTREMITIES: No cyanosis, no edema. Peripheral pulses, full and equal in all extremities, except as noted. No bruits appreciated. ABDOMEN: Soft, nondistended. Normal aorta. No bruit. Nontender. No masses. Liver, nontender, no hepatomegaly. Spleen, nontender, no splenomegaly. MUSCULOSKELETAL: No joint tenderness. No joint swelling. No erythema. NEUROLOGICAL: Normal gait, normal strength, normal tone. SKIN: Warm and dry. OVERALL IMPRESSION: Unstable angina. The patient with past history of coronary CONSULT REPORT [id number] JACYLN RODRIGUEZ W artery disease, on aspirin; hypotension, precluding any antianginal medications with significant ST-T changes with the tachycardia. Most likely, this is ischemic driven. We will proceed with coronary angiography in the a.m., sooner if he has recurrent episodes or recurrent symptomatology. TRANSINT:[id number] Voice Confirmation ID: [id number] DOCUMENT ID: [id number] BULL MONTES DE OCA MD at 0953 CC: [id number] DICTATION DATE: 12/13/18 112 SOLUTION PROFESSIONAL: 12/13/18 1234 ADM IN [place] [id number] [place] [address]
--- NOTE | 2018-12-15 09:53 | EC ---
PATIENT:JACLYN RODRIGUEZ DATE OF SERVICE: 12/14/18 SEX: M MEDICAL RECORD: [id number] DATE OF : [birth year] LOCATION:D. D.212 AGE OF PATIENT: 33 ADMISSION DATE: 12/14/18 REFERRING PHYSICIAN: INTERPRETING PHYSICIAN: BULL TRAN MD ECHOCARDIOGRAM REPORT ECHO CHARGES 4 ECHO COMPLETE Date: 12/14/18 CLINICAL DIAGNOSIS: AFIB ECHOCARDIOGRAPHIC MEASUREMENTS (adult normal given) AC root (d.<3.7cm) 2.5 cm LV Septum d (<1.2 cm> 0.7 cm Valve Excursion 1.3 cm LV Septum (systole) 1.3 cm Left Atria (s.<4.0cm> 3.7 cm LVPW d(<1.2cm) 1.1 cm RV (d.<2.3cm) 3.2 cm LVPW (sytole) 1.3 cm LV diastole(<5.6CM) 4.0 cm MV E-F(>70mm/sec) cm LV systole 2.4 cm LVOT Diameter 1.4 cm MV exc.(>10mm) cm Est.ejection fraction (50-75%) % DOPPLER: LVIT cm/sec A 34 cm/sec E 45 cm/sec LA cm/sec RVSP 18.6 mmHg LVOT 70 cm/sec AOP1/2T m/s Asc. Ao 165 cm/sec RVOT cm/sec RA cm/sec PA cm/sec AV Gradient Peak 11.0 mmHg AV Mean 5.7 mmHg AV Area 0.7 cm MV Gradient Peak 2.9 mmHg MV Mean 0.9 mmHg MV Area cm COMMENTS: Diesel Mechanic Helper: Judy PINO Seismic Prospecting Supervisor: Clark Tran TAPE# PACS Pericardial Effusion N DATE OF SERVICE: 12/14/2018 FINDINGS: 1. Left ventricular chamber size is within normal limits. Left ventricular systolic function is normal. Overall ejection fraction is estimated at 55%. 2. Left atrium, right atrium, and right ventricular chamber sizes are within normal limit. 3. Valvular structures have normal structure and motion. 4. Doppler interrogation reveals trace tricuspid regurgitation. No other valvular insufficiency or stenosis. Pulmonary systolic pressure is estimated at ECHOCARDIOGRAM REPORT [id number] JACLYN RODRIGUEZ 18 mmHg. 5. No evidence of pericardial effusion or left ventricular thrombus. TRANSINT:[id number] Voice Confirmation ID: [id number] DOCUMENT ID: [id number] BULL TRAN MD at 0953 CC: [id number] DICTATION DATE: 12/14/18 1508 STEWARD/STEWARDESS THIRD: 12/14/18 1729 ADM IN [facility] [address] [place] [id number]
--- NOTE | 2018-12-15 11:13 | NUR ---
PT BACK FROM PHOTOLETTERING MACHINE OPERATOR. RIGHT GROIN SOFT WITH A SMALL ABOUT OF BLOOD. NO ACTIVE BLEEDING NOTED. V/S STABLE . DENIES ANY NEEDS
[2018-12-15 11:49] VITALS: BP 145/95
[2018-12-15 15:26] VITALS: BP 107/68
[2018-12-15] MEDS ORDERED: CARDIZEM CD180 MG PO (16:08)
--- NOTE | 2018-12-15 16:59 | MORECARE ---
CASE MANAGEMENT DISCHARGE SUMMARY PATIENT: JACLYN RODRIGUEZ UNIT: [id number] ADM DATE: 12/14/18 AGE: 33 : 81 SEX: M ROOM/BED: D.2122 AUTHOR: DIONNE EASTON PHYSICIAN: REFERRING PHYSICIAN: RAHUL DEJESUS MD DATE OF SERVICE: 12/15/18 Discharge Plan Patient Name: JACLYN RODRIGUEZ [facility] : 1985 Planned Disposition: Home with Home Health Anticipated Discharge Date: 12/15/18 Discharge Date: Expected LOS: 1 Initial Reviewer: [email or web address] Initial Review Date: 12/15/2018 Generated: 12/15/18 5:59 pm DCPIA - Discharge Planning Initial Assessment Updated by [email or web address]: Luis Angel Hughes on 12/15/18 4:58 pm * Is the patient Alert and Oriented? Yes * How many steps to enter\exit or inside your home? NONE * PCP DR. GUNTER IN [place] * Pharmacy [facility] * Preadmission Environment Home with Family * ADLs Total Dependent * Equipment Catheter Supplies Hospital Bed Ostomy Supplies Power Chair or Electric Scooter * Other Equipment [facility] - MEDICAL EQUIPMENT PROVIDER * List name and contact numbers for known caregivers / representatives who currently or will assist patient after discharge: INDIA RODRIGUEZ, AUNT, [phone] GEMINI RODRIGUEZ, MOTHER, * Verbal permission to speak to the caregivers and representatives has been obtained from the patient. Yes * Community resources currently utilized Private Duty Care * Please name any agencies selected above. [facility], 7 DAYS, 8 HOURS PER DAY * Additional services required to return to the preadmission environment? No * Can the patient safely return to the preadmission environment? Yes * Has this patient been hospitalized within the prior 30 days at any hospital? No Patient Name: JACLYN RODRIGUEZ Page [phone] at 1654 All edits/amendments must be made on the electronic document DICTATION DATE: 12/15/181658 MANUGRAPHER: TERENCE 12/15/181658 RPT#: [id number] DC DATE: STATUS: ADM IN [facility] [address] [place] [address] END OF REPORT
--- NOTE | 2018-12-15 17:07 | MORECARE ---
CASE MANAGEMENT DISCHARGE SUMMARY PATIENT: JACLYN RODRIGUEZ UNIT: [id number] ADM DATE: 12/14/18 AGE: 33 : 81 SEX: M ROOM/BED: D.1701 AUTHOR: RUSTAM,DOC PHYSICIAN: REFERRING PHYSICIAN: RAHUL DEJESUS MD DATE OF SERVICE: 12/15/18 Discharge Plan Patient Name: JACLYN RODRIGUEZ Facility: [facility]:[place] : 1985 Planned Disposition: Home with Home Health Anticipated Discharge Date: 12/15/18 Discharge Date: Expected LOS: 1 Initial Reviewer: [email or web address] Initial Review Date: 12/15/2018 Generated: 12/15/18 6:07 pm Comments DCP- Discharge Planning Updated by [email or web address]: Luis Angel Hughes on 12/15/18 4:[address] Patient Name: JACLYN RODRIGUEZ Admission Status: ER Accout number: [id number] Admission Date: 12-14-2018 : 1985 Admission Diagnosis: Attending: RAHUL DEJESUS Current LOS: 1 Anticipated DC Date: 12-15-2018 Planned Disposition: Home Primary Insurance: MEDICAID [place] Discharge Planning Comments: CM MET WITH PT IN ROOM TO DISCUSS DISCHARGE PLANNING AND NEEDS. PT REPORTS LIVING AT HOME AND IS TOTALLY DEPENDENT ON FAMILY AND PERSONAL CARE SERVICES. PT REPORTS HAVING PERSONAL CARE 7 DAYS PER WEEK, 8 HOURS PER DAY. PT WOULD LIKE HOME HEALTH FOR THERAPY AND ASKED CM TO CALL HIS AUNT. PT REPORTS HE WILL BE GOING TO HIS MOTHER'S HOME AT DISCHARGE VIA AMBULANCE, ADDRESS IS [address] [place] [address], [address]; MOTHER IS GEMINI RODRIGUEZ, . CM CALLED INDIA RODRIGUEZ, PT'S AUNT, , WHO REQUESTED HOME HEALTH IF POSSIBLE FOR THERAPY SERVICES PERSONAL CARE DOES NOT DO THAT TYPE OF WLRK. THEY HAVE NO PREFERNECE ON PROVIDER, JUST NOT [facility]. CHOICE LETTER COMPLETED. INDIA CONFIRMED THAT PT WILL DISCHARGE VIA AMBULANCE TO HIS MOTHER'S HOME ON [address]. CM NOTIFED AUDREY WOODRUFF VIA MESSAGE AND PAGED TO NOTIFY VERBALLY OF PT AND FAMILY DESIRE FOR HOME HEALTH FOR PHYSICAL THERAPY. PT WILL DISCHARGE HOME TO MOTHER'S HOME AND RESUMPTION OF PERSONAL CARE SERVICES. PT AND FAMILY WOULD LIKE HOME HEALTH, TO ARRANGE IF PHYSICIAN AGREES AND IF PHYSICIAN PROVIDES ORDER. Farm Operator: Luis Angel Hughes DCPIA - Discharge Planning Initial Assessment Updated by [id number]: Luis Angel Hughes on 12/15/18 4:58 pm * Is the patient Alert and Oriented? Yes * How many steps to enter\exit or inside your home? NONE * PCP DR. GUNTER IN [place] * Pharmacy [facility] * Preadmission Environment Home with Family * ADLs Total Dependent * Equipment Catheter Supplies Hospital Bed Ostomy Supplies Power Chair or Electric Scooter * Other Equipment [facility] - MEDICAL EQUIPMENT PROVIDER * List name and contact numbers for known caregivers / representatives who currently or will assist patient after discharge: INDIA RODRIGUEZ, AUNT, [phone] GEMINI RODRIGUEZ, MOTHER, * Verbal permission to speak to the caregivers and representatives has been obtained from the patient. Yes * Community resources currently utilized Private Duty Care * Please name any agencies selected above. [facility], 7 DAYS, 8 HOURS PER DAY * Additional services required to return to the preadmission environment? No * Can the patient safely return to the preadmission environment? Yes * Has this patient been hospitalized within the prior 30 days at any hospital? No Coverage Notice Reviewer: [id number] - Luis Angel Hughes Notice Issued Date-Time: 12/15/2018 15:30 Notice Type: Patient Choice Letter Notice Delivered To: Family Member Relationship to Patient: Aunt Associate Professor Of History Name: INDIA RODRIGUEZ Delivery Method: PHONE - Phone Katherine Days: Prior Verbal Notification: Recipient Understood Notice: Yes Recipient Signature: Med Rec Note Co-signed by Attending: Coverage Notice Comment: ANY HOME HEALTH BUT NOT [facility] Last DP export: 12/15/18 3:59 pm Patient Name: JACLYN RODRIGUEZ Page [phone] at 1707 All edits/amendments must be made on the electronic document DICTATION DATE: 12/15/181706 GANG BORE OPERATOR: TERENCE 12/15/181706 RPT#: [id number] DC DATE: STATUS: ADM IN [facility] [address] [place] [address] END OF REPORT
--- NOTE | 2018-12-15 17:23 | MORECARE ---
CASE MANAGEMENT DISCHARGE SUMMARY PATIENT: JACLYN RODRIGUEZ UNIT: [id number] ADM DATE: 12/14/18 AGE: 33 : 81 SEX: M ROOM/BED: D.1043 AUTHOR: RUSTAM,DOC PHYSICIAN: REFERRING PHYSICIAN: RAHUL DEJESUS MD DATE OF SERVICE: 12/15/18 Discharge Plan Patient Name: JACLYN RODRIGUEZ Facility: [facility]:[place] : 1985 Planned Disposition: Home with Home Health Anticipated Discharge Date: 12/15/18 Discharge Date: Expected LOS: 1 Initial Reviewer: [email or web address] Initial Review Date: 12/15/2018 Generated: 12/15/18 6:23 pm Comments DCP- Discharge Planning Updated by [email or web address]: Luis Angel Hughes on 12/15/18 4:[address] Patient Name: JACLYN RODRIGUEZ Admission Status: ER Accout number: [id number] Admission Date: 12-14-2018 : 1985 Admission Diagnosis: Attending: RAHUL DEJESUS Current LOS: 1 Anticipated DC Date: 12-15-2018 Planned Disposition: Home Primary Insurance: MEDICAID [place] Discharge Planning Comments: CM MET WITH PT IN ROOM TO DISCUSS DISCHARGE PLANNING AND NEEDS. PT REPORTS LIVING AT HOME AND IS TOTALLY DEPENDENT ON FAMILY AND PERSONAL CARE SERVICES. PT REPORTS HAVING PERSONAL CARE 7 DAYS PER WEEK, 8 HOURS PER DAY. PT WOULD LIKE HOME HEALTH FOR THERAPY AND ASKED CM TO CALL HIS AUNT. PT REPORTS HE WILL BE GOING TO HIS MOTHER'S HOME AT DISCHARGE VIA AMBULANCE, ADDRESS IS [address] [place] [address], [address]; MOTHER IS GEMINI RODRIGUEZ, . CM CALLED INDIA RODRIGUEZ, PT'S AUNT, , WHO REQUESTED HOME HEALTH IF POSSIBLE FOR THERAPY SERVICES PERSONAL CARE DOES NOT DO THAT TYPE OF WLRK. THEY HAVE NO PREFERNECE ON PROVIDER, JUST NOT [facility]. CHOICE LETTER COMPLETED. INDIA CONFIRMED THAT PT WILL DISCHARGE VIA AMBULANCE TO HIS MOTHER'S HOME ON [address]. CM NOTIFED AUDREY WOODRUFF VIA MESSAGE AND PAGED TO NOTIFY VERBALLY OF PT AND FAMILY DESIRE FOR HOME HEALTH FOR PHYSICAL THERAPY. PT WILL DISCHARGE HOME TO MOTHER'S HOME AND RESUMPTION OF PERSONAL CARE SERVICES. PT AND FAMILY WOULD LIKE HOME HEALTH, TO ARRANGE IF PHYSICIAN AGREES AND IF PHYSICIAN PROVIDES ORDER. Skilled Nursing Case Manager: Luis Angel Hughes DCPIA - Discharge Planning Initial Assessment Updated by [id number]: Luis Angel Hughes on 12/15/18 4:58 pm * Is the patient Alert and Oriented? Yes * How many steps to enter\exit or inside your home? NONE * PCP DR. GUNTER IN [place] * Pharmacy [facility] * Preadmission Environment Home with Family * ADLs Total Dependent * Equipment Catheter Supplies Hospital Bed Ostomy Supplies Power Chair or Electric Scooter * Other Equipment [facility] - MEDICAL EQUIPMENT PROVIDER * List name and contact numbers for known caregivers / representatives who currently or will assist patient after discharge: INDIA RODRIGUEZ, AUNT, [phone] GEMINI RODRIGUEZ, MOTHER, * Verbal permission to speak to the caregivers and representatives has been obtained from the patient. Yes * Community resources currently utilized Private Duty Care * Please name any agencies selected above. [facility], 7 DAYS, 8 HOURS PER DAY * Additional services required to return to the preadmission environment? No * Can the patient safely return to the preadmission environment? Yes * Has this patient been hospitalized within the prior 30 days at any hospital? No External Providers [facility] Next Contact Date: 12/16/2018 Service Request Date: Service Type: Resolution: Reviewer: Comments: Coverage Notice Reviewer: [id number] - Luis Angel Hughes Notice Issued Date-Time: 12/15/2018 15:30 Notice Type: Patient Choice Letter Notice Delivered To: Family Member Relationship to Patient: Aunt Financial Cost Analyst Name: INDIA RODRIGUEZ Delivery Method: PHONE - Phone Katherine Days: Prior Verbal Notification: Recipient Understood Notice: Yes Recipient Signature: Med Rec Note Co-signed by Attending: Coverage Notice Comment: ANY HOME HEALTH BUT NOT [facility] Last DP export: 12/15/18 4:07 pm Patient Name: JACLYN RODRIGUEZ Page [phone] at 1723 All edits/amendments must be made on the electronic document DICTATION DATE: 12/15/181722 INSULATION FOREMAN: TERENCE 12/15/181722 RPT#: [id number] DC DATE: STATUS: ADM IN [facility] [address] [facility] [place] [address] END OF REPORT
--- NOTE | 2018-12-15 17:32 | MORECARE ---
CASE MANAGEMENT DISCHARGE SUMMARY PATIENT: JACLYN RODRIGUEZ UNIT: [id number] ADM DATE: 12/14/18 AGE: 33 : 81 SEX: M ROOM/BED: D.1413 AUTHOR: RUSTAM,DOC PHYSICIAN: REFERRING PHYSICIAN: RAHUL DEJESUS MD DATE OF SERVICE: 12/15/18 Discharge Plan Patient Name: JACLYN RODRIGUEZ Facility: [facility]:[place] : 1985 Planned Disposition: Home with Home Health Anticipated Discharge Date: 12/15/18 Discharge Date: Expected LOS: 1 Initial Reviewer: [email or web address] Initial Review Date: 12/15/2018 Generated: 12/15/18 6:32 pm Comments DCP- Discharge Planning Updated by [email or web address]: Luis Angel Morse on 12/15/18 4:[address] Patient Name: JACLYN RODRIGUEZ Admission Status: ER Accout number: [id number] Admission Date: 12-14-2018 : 1985 Admission Diagnosis: Attending: RAHUL DEJESUS Current LOS: 1 Anticipated DC Date: 12-15-2018 Planned Disposition: Home Primary Insurance: MEDICAID [place] Discharge Planning Comments: CM MET WITH PT IN ROOM TO DISCUSS DISCHARGE PLANNING AND NEEDS. PT REPORTS LIVING AT HOME AND IS TOTALLY DEPENDENT ON FAMILY AND PERSONAL CARE SERVICES. PT REPORTS HAVING PERSONAL CARE 7 DAYS PER WEEK, 8 HOURS PER DAY. PT WOULD LIKE HOME HEALTH FOR THERAPY AND ASKED CM TO CALL HIS AUNT. PT REPORTS HE WILL BE GOING TO HIS MOTHER'S HOME AT DISCHARGE VIA AMBULANCE, ADDRESS IS [address] [place] [address], [address]; MOTHER IS GEMINI RODRIGUEZ, . CM CALLED INDIA RODRIGUEZ, PT'S AUNT, , WHO REQUESTED HOME HEALTH IF POSSIBLE FOR THERAPY SERVICES PERSONAL CARE DOES NOT DO THAT TYPE OF WLRK. THEY HAVE NO PREFERNECE ON PROVIDER, JUST NOT [facility]. CHOICE LETTER COMPLETED. INDIA CONFIRMED THAT PT WILL DISCHARGE VIA AMBULANCE TO HIS MOTHER'S HOME ON [address]. CM NOTIFED AUDREY WOODRUFF VIA MESSAGE AND PAGED TO NOTIFY VERBALLY OF PT AND FAMILY DESIRE FOR HOME HEALTH FOR PHYSICAL THERAPY. PT WILL DISCHARGE HOME TO MOTHER'S HOME AND RESUMPTION OF PERSONAL CARE SERVICES. PT AND FAMILY WOULD LIKE HOME HEALTH, CM TO ARRANGE IF PHYSICIAN AGREES AND IF PHYSICIAN PROVIDES ORDER. Primary Class Teacher: Luis Angel Morse Appended by Luis Angel Morse on 12/15/2018 17:28 CDT: CM RECEIVED CALL FROM AUDREY WOODRUFF WHO APPROVED OF HOME HEALTH IF PT'S PRIMARY WILL FOLLOW FOR ORDERS. CM CALLED [facility], , SPOKE TO MEAT SOAKER NURSE ADAN WHO INFORMED CM THAT INTAKE WILL PROCESS THE ORDER TOMORROW FOR POSSIBLE HOME HEALTH SERVICES. CM FAXED REFERRAL TO [facility] AT [phone]. SALESPERSON MEN'S AND BOYS' CLOTHING NURSE AND PATIENT NOTIFIED. LUIS ANGEL MORSE,CASE MANAGEMENT DCPIA - Discharge Planning Initial Assessment Updated by [id number]: Luis Angel Morse on 12/15/18 4:58 pm * Is the patient Alert and Oriented? Yes * How many steps to enter\exit or inside your home? NONE * PCP DR. GUNTER IN [place] * Pharmacy [facility] * Preadmission Environment Home with Family * ADLs Total Dependent * Equipment Catheter Supplies Hospital Bed Ostomy Supplies Power Chair or Electric Scooter * Other Equipment [facility] - MEDICAL EQUIPMENT PROVIDER * List name and contact numbers for known caregivers / representatives who currently or will assist patient after discharge: INDIA RODRIGUEZ, AUNT, [phone] GEMINI RODRIGUEZ, MOTHER, * Verbal permission to speak to the caregivers and representatives has been obtained from the patient. Yes * Community resources currently utilized Private Duty Care * Please name any agencies selected above. [facility], 7 DAYS, 8 HOURS PER DAY * Additional services required to return to the preadmission environment? No * Can the patient safely return to the preadmission environment? Yes * Has this patient been hospitalized within the prior 30 days at any hospital? No Coverage Notice Reviewer: [id number] - Luis Angel Morse Notice Issued Date-Time: 12/15/2018 15:30 Notice Type: Patient Choice Letter Notice Delivered To: Family Member Relationship to Patient: Aunt Hydraulic Miner Blasting Name: INDIA RODRIGUEZ Delivery Method: PHONE - Phone Katherine Days: Prior Verbal Notification: Recipient Understood Notice: Yes Recipient Signature: Med Rec Note Co-signed by Attending: Coverage Notice Comment: ANY HOME HEALTH BUT NOT [facility] Last DP export: 12/15/18 4:23 pm Patient Name: JACLYN RODRIGUEZ Page [phone] at 1732 All edits/amendments must be made on the electronic document DICTATION DATE: 12/15/181731 PROCESS CONTROL PROGRAMMER: TERENCE 12/15/181731 RPT#: [id number] DC DATE: STATUS: ADM IN [facility] [address] [place] [address] END OF REPORT
--- NOTE | 2018-12-15 17:41 | MORECARE ---
CASE MANAGEMENT DISCHARGE SUMMARY PATIENT: JACLYN RODRIGUEZ UNIT: [id number] ADM DATE: 12/14/18 AGE: 33 : 81 SEX: M ROOM/BED: D.6399 AUTHOR: RUSTAM,DOC PHYSICIAN: REFERRING PHYSICIAN: RAHUL DEJESUS MD DATE OF SERVICE: 12/15/18 Discharge Plan Patient Name: JACLYN RODRIGUEZ Facility: [facility]:[place] : 1985 Planned Disposition: Home with Home Health Anticipated Discharge Date: 12/15/18 Discharge Date: Expected LOS: 1 Initial Reviewer: [id number] Initial Review Date: 12/15/2018 Generated: 12/15/18 6:41 pm Comments DCP- Discharge Planning Updated by [email or web address]: Luis Angel Morse on 12/15/18 4:[address] Patient Name: JACLYN RODRIGUEZ Admission Status: ER Accout number: [id number] Admission Date: 12-14-2018 : 1985 Admission Diagnosis: Attending: RAHUL DEJESUS Current LOS: 1 Anticipated DC Date: 12-15-2018 Planned Disposition: Home Primary Insurance: MEDICAID [place] Discharge Planning Comments: CM MET WITH PT IN ROOM TO DISCUSS DISCHARGE PLANNING AND NEEDS. PT REPORTS LIVING AT HOME AND IS TOTALLY DEPENDENT ON FAMILY AND PERSONAL CARE SERVICES. PT REPORTS HAVING PERSONAL CARE 7 DAYS PER WEEK, 8 HOURS PER DAY. PT WOULD LIKE HOME HEALTH FOR THERAPY AND ASKED CM TO CALL HIS AUNT. PT REPORTS HE WILL BE GOING TO HIS MOTHER'S HOME AT DISCHARGE VIA AMBULANCE, ADDRESS IS [address] [place] [address], [address]; MOTHER IS GEMINI RODRIGUEZ, . CM CALLED INDIA RODRIGUEZ, PT'S AUNT, , WHO REQUESTED HOME HEALTH IF POSSIBLE FOR THERAPY SERVICES PERSONAL CARE DOES NOT DO THAT TYPE OF WLRK. THEY HAVE NO PREFERNECE ON PROVIDER, JUST NOT [facility]. CHOICE LETTER COMPLETED. INDIA CONFIRMED THAT PT WILL DISCHARGE VIA AMBULANCE TO HIS MOTHER'S HOME ON [address]. CM NOTIFED AUDREY WOODRUFF VIA MESSAGE AND PAGED TO NOTIFY VERBALLY OF PT AND FAMILY DESIRE FOR HOME HEALTH FOR PHYSICAL THERAPY. PT WILL DISCHARGE HOME TO MOTHER'S HOME AND RESUMPTION OF PERSONAL CARE SERVICES. PT AND FAMILY WOULD LIKE HOME HEALTH, CM TO ARRANGE IF PHYSICIAN AGREES AND IF PHYSICIAN PROVIDES ORDER. Resort Housekeeper: Luis Angel Morse Appended by Luis Angel Morse on 12/15/2018 17:28 CDT: CM RECEIVED CALL FROM AUDREY WOODRUFF WHO APPROVED OF HOME HEALTH IF PT'S PRIMARY WILL FOLLOW FOR ORDERS. CM CALLED [facility] [employer], , SPOKE TO DESIGN ASSEMBLER NURSE ADAN WHO INFORMED CM THAT INTAKE WILL PROCESS THE ORDER TOMORROW FOR POSSIBLE HOME HEALTH SERVICES. CM FAXED REFERRAL TO [facility] AT [phone]. MERCHANT POLICE NURSE AND PATIENT NOTIFIED. LUIS ANGEL MORSE,CASE MANAGEMENT DCPIA - Discharge Planning Initial Assessment Updated by [email or web address]: Luis Angel Morse on 12/15/18 4:58 pm * Is the patient Alert and Oriented? Yes * How many steps to enter\exit or inside your home? NONE * PCP DR. GUNTER IN [place] * Pharmacy [facility] * Preadmission Environment Home with Family * ADLs Total Dependent * Equipment Catheter Supplies Hospital Bed Ostomy Supplies Power Chair or Electric Scooter * Other Equipment [employer] - MEDICAL EQUIPMENT PROVIDER * List name and contact numbers for known caregivers / representatives who currently or will assist patient after discharge: INDIA RODRIGUEZ, AUNT, [phone] GEMINI RODRIGUEZ, MOTHER, * Verbal permission to speak to the caregivers and representatives has been obtained from the patient. Yes * Community resources currently utilized Private Duty Care * Please name any agencies selected above. [facility], 7 DAYS, 8 HOURS PER DAY * Additional services required to return to the preadmission environment? No * Can the patient safely return to the preadmission environment? Yes * Has this patient been hospitalized within the prior 30 days at any hospital? No Coverage Notice Reviewer: [id number] - Luis Angel Morse Notice Issued Date-Time: 12/15/2018 15:30 Notice Type: Patient Choice Letter Notice Delivered To: Family Member Relationship to Patient: Aunt Audio Video Mechanic Name: INDIA RODRIGUEZ Delivery Method: PHONE - Phone Katherine Days: Prior Verbal Notification: Recipient Understood Notice: Yes Recipient Signature: Med Rec Note Co-signed by Attending: Coverage Notice Comment: ANY HOME HEALTH BUT NOT [facility] Last DP export: 12/15/18 4:32 pm Patient Name: JACLYN RODRIGUEZ Page [id number] at 1741 All edits/amendments must be made on the electronic document DICTATION DATE: 12/15/181739 TUBE COVERER: TERENCE 12/15/181739 RPT#: [id number] DC DATE: STATUS: ADM IN [facility] [address] [place] [address] END OF REPORT
--- NOTE | 2018-12-15 18:47 | NUR ---
FAMILY AT BEDSIDE. BATH GIVEN. NO NEEDS VOICE. WILL MONITOR
[2018-12-15 20:00] VITALS: BP 81/57
--- NOTE | 2018-12-15 20:07 | NUR ---
RECIEVED LAYING IN BED WITH ORAL CALL LIGHT IN PLACE. REQUESTED PAIN MEDICATION. GIVEN PER ORDERS. MOTHER IN ROOM EARLIER AND STATED " I PUT ONE OF HIS CONDOM CATHETERS ON HIM". CATH IN PLACE AND DRAINING CLEAR STRAW COLOR URINE TO BEDSIDE DRAINAGE BAG. LEFT CHEST INFUSA PORT WITH N/S INFUSING AT 10CC/HR. COLOSTOMY IN TACT WITH LIGHT BROWN LIQUID SOOL IN BAG. DSG TO BUTTOCKS X2. DENIES ANY OTHER NEEDS AT THIS TIME.
--- NOTE | 2018-12-15 21:42 | NUR ---
REFUSED TO HAVE DSG CHANGED. SAID LATER.
--- NOTE | 2018-12-15 22:29 | NUR ---
LAYINGIN BED WITH EYES OPEN AND TV ON. DENIES ANY NEEDS AT THIS TIME.
[2018-12-16 01:05] VITALS: BP 122/77
[2018-12-16 05:36] VITALS: BP 98/62
[2018-12-16 06:33] LABS: BASOPHILS 0.2 % (0-2); EOSINOPHILS 2.7 % (0-7); HEMATOCRIT 34.2 % (42.0-54.0); HEMOGLOBIN 11.7 g/dL (13.5-17.5); IMMATURE GRANULOCYTES 0.2 % (0-5); LYMPHOCYTES 26.9 % (15-50); MCH 33.3 pg (26.0-34.0); MCHC 34.2 g/dL (31.0-37.0); MCV 97.4 fL (80.0-100.0); MEAN PLATELET VOLUME 11.9 fL (7.4-10.4); MONOCYTES 18.1 % (2-11); NEUTROPHILS 51.9 % (40-80); PLATELET COUNT 135 10x3/uL (130-400); RBC 3.51 10x6/uL (4.20-6.10); RDW 13.5 % (11.5-14.5); WBC 5.2 10x3/uL (4.8-10.8)
[2018-12-16 07:11] LABS: CALC OSMOLALITY 275 mosm/kg (275-300); CALCIUM 8.4 mg/dL (8.5-10.1); CARBON DIOXIDE 26.9 mmol/L (21.0-32.0); CHLORIDE - SERUM 105 mmol/L (98-107); CREATININE - SERUM 0.4 mg/dL (0.6-1.3); GLUCOSE 88 mg/dL (74-106); MAGNESIUM - SERUM 1.6 mg/dL (1.8-2.4); PHOSPHOROUS 2.9 mg/dL (2.5-4.9); POTASSIUM - SERUM 3.6 mmol/L (3.5-5.1); SODIUM 139 mmol/L (136-145); UREA NITROGEN 9 mg/dL (7-18); eGFR NON AFRICAN AMERICAN > 90 mL/min (90-120)
--- NOTE | 2018-12-16 07:21 | MORECARE ---
CASE MANAGEMENT DISCHARGE SUMMARY PATIENT: JACLYN RODRIGUEZ UNIT: [id number] ADM DATE: 12/14/18 AGE: 33 : 81 SEX: M ROOM/BED: D.5509 AUTHOR: RUSTAM,DOC PHYSICIAN: REFERRING PHYSICIAN: RAHUL DEJESUS MD DATE OF SERVICE: 12/16/18 Discharge Plan Patient Name: JACLYN RODRIGUEZ Facility: [facility]:[place] : 1985 Planned Disposition: Home with Home Health Anticipated Discharge Date: 12/16/18 Discharge Date: Expected LOS: 2 Initial Reviewer: [id number] Initial Review Date: 12/15/2018 Generated: 12/16/18 8:21 am Comments DCP- Discharge Planning Updated by [id number]: Luis Angel Morse on 12/15/18 4:[address] Patient Name: JACLYN RODRIGUEZ Admission Status: ER Accout number: [id number] Admission Date: 12-14-2018 : 1985 Admission Diagnosis: Attending: RAHUL DEJESUS Current LOS: 1 Anticipated DC Date: 12-15-2018 Planned Disposition: Home Primary Insurance: MEDICAID [place] Discharge Planning Comments: CM MET WITH PT IN ROOM TO DISCUSS DISCHARGE PLANNING AND NEEDS. PT REPORTS LIVING AT HOME AND IS TOTALLY DEPENDENT ON FAMILY AND PERSONAL CARE SERVICES. PT REPORTS HAVING PERSONAL CARE 7 DAYS PER WEEK, 8 HOURS PER DAY. PT WOULD LIKE HOME HEALTH FOR THERAPY AND ASKED CM TO CALL HIS AUNT. PT REPORTS HE WILL BE GOING TO HIS MOTHER'S HOME AT DISCHARGE VIA AMBULANCE, ADDRESS IS [address] [place] [address], [address]; MOTHER IS GEMINI RODRIGUEZ, . CM CALLED INDIA RODRIGUEZ, PT'S AUNT, , WHO REQUESTED HOME HEALTH IF POSSIBLE FOR THERAPY SERVICES PERSONAL CARE DOES NOT DO THAT TYPE OF WLRK. THEY HAVE NO PREFERNECE ON PROVIDER, JUST NOT [facility]. CHOICE LETTER COMPLETED. INDIA CONFIRMED THAT PT WILL DISCHARGE VIA AMBULANCE TO HIS MOTHER'S HOME ON [address]. CM NOTIFED AUDREY WOODRUFF VIA MESSAGE AND PAGED TO NOTIFY VERBALLY OF PT AND FAMILY DESIRE FOR HOME HEALTH FOR PHYSICAL THERAPY. PT WILL DISCHARGE HOME TO MOTHER'S HOME AND RESUMPTION OF PERSONAL CARE SERVICES. PT AND FAMILY WOULD LIKE HOME HEALTH, CM TO ARRANGE IF PHYSICIAN AGREES AND IF PHYSICIAN PROVIDES ORDER. Impregnator Electrolytic Capacitors: Luis Angel Morse Appended by Luis Angel Morse on 12/15/2018 17:28 CDT: CM RECEIVED CALL FROM AUDREY WOODRUFF WHO APPROVED OF HOME HEALTH IF PT'S PRIMARY WILL FOLLOW FOR ORDERS. CM CALLED [facility], , SPOKE TO OCCUPATIONAL THERAPY TEACHER NURSE ADAN WHO INFORMED CM THAT INTAKE WILL PROCESS THE ORDER TOMORROW FOR POSSIBLE HOME HEALTH SERVICES. CM FAXED REFERRAL TO [facility] AT [phone]. LOADING UNIT OPERATOR NURSE AND PATIENT NOTIFIED. LUIS ANGEL MORSE,CASE MANAGEMENT DCPIA - Discharge Planning Initial Assessment Updated by [email or web address]: Luis Angel Morse on 12/15/18 4:58 pm * Is the patient Alert and Oriented? Yes * How many steps to enter\exit or inside your home? NONE * PCP DR. GUNTER IN [place] * Pharmacy [facility] * Preadmission Environment Home with Family * ADLs Total Dependent * Equipment Catheter Supplies Hospital Bed Ostomy Supplies Power Chair or Electric Scooter * Other Equipment [employer] - MEDICAL EQUIPMENT PROVIDER * List name and contact numbers for known caregivers / representatives who currently or will assist patient after discharge: INDIA RODRIGUEZ, AUNT, [phone] GEMINI RODRIGUEZ, MOTHER, * Verbal permission to speak to the caregivers and representatives has been obtained from the patient. Yes * Community resources currently utilized Private Duty Care * Please name any agencies selected above. [facility], 7 DAYS, 8 HOURS PER DAY * Additional services required to return to the preadmission environment? No * Can the patient safely return to the preadmission environment? Yes * Has this patient been hospitalized within the prior 30 days at any hospital? No Coverage Notice Reviewer: [id number] - Luis Angel Morse Notice Issued Date-Time: 12/15/2018 15:30 Notice Type: Patient Choice Letter Notice Delivered To: Family Member Relationship to Patient: Aunt Filling Station Equipment Mechanic Name: INDIA RODRIGUEZ Delivery Method: PHONE - Phone Katherine Days: Prior Verbal Notification: Recipient Understood Notice: Yes Recipient Signature: Med Rec Note Co-signed by Attending: Coverage Notice Comment: ANY HOME HEALTH BUT NOT [facility] Last DP export: 12/15/18 4:41 pm Patient Name: JACLYN RODRIGUEZ Page 44413 at 0721 All edits/amendments must be made on the electronic document DICTATION DATE: 12/16/18720 DYNAMIC BALANCER SET UP WORKER: TERENCE 12/16/18720 RPT#: [id number] DC DATE: STATUS: ADM IN [facility] [address] [place] [address] END OF REPORT
--- NOTE | 2018-12-16 07:42 | NUR ---
ASSESSMENT DONE. DENIES NEEDS
[2018-12-16 08:32] VITALS: BP 114/76
--- NOTE | 2018-12-16 09:58 | NUR ---
I have reviewed this patient and I concur with the Shift Assessment completed by the Licensed Practical Nurse today this shift.
--- NOTE | 2018-12-16 10:02 | MORECARE ---
CASE MANAGEMENT DISCHARGE SUMMARY PATIENT: JACLYN RODRIGUEZ UNIT: [id number] ADM DATE: 12/14/18 AGE: 33 : 81 SEX: M ROOM/BED: D.3964 AUTHOR: RUSTAM,DOC PHYSICIAN: REFERRING PHYSICIAN: RAHUL DEJESUS MD DATE OF SERVICE: 12/16/18 Discharge Plan Patient Name: JACLYN RODRIGUEZ Facility: [facility]:[place] : 1985 Planned Disposition: Home with Home Health Anticipated Discharge Date: 12/16/18 Discharge Date: Expected LOS: 2 Initial Reviewer: [email or web address] Initial Review Date: 12/15/2018 Generated: 12/16/18 11:01 am Comments DCP- Discharge Planning Updated by [email or web address]: Luis Angel Morse on 12/15/18 4:[address] Patient Name: JACLYN RODRIGUEZ Admission Status: ER Accout number: [id number] Admission Date: 12-14-2018 : 1985 Admission Diagnosis: Attending: RAHUL DEJESUS Current LOS: 1 Anticipated DC Date: 12-15-2018 Planned Disposition: Home Primary Insurance: MEDICAID [place] Discharge Planning Comments: CM MET WITH PT IN ROOM TO DISCUSS DISCHARGE PLANNING AND NEEDS. PT REPORTS LIVING AT HOME AND IS TOTALLY DEPENDENT ON FAMILY AND PERSONAL CARE SERVICES. PT REPORTS HAVING PERSONAL CARE 7 DAYS PER WEEK, 8 HOURS PER DAY. PT WOULD LIKE HOME HEALTH FOR THERAPY AND ASKED CM TO CALL HIS AUNT. PT REPORTS HE WILL BE GOING TO HIS MOTHER'S HOME AT DISCHARGE VIA AMBULANCE, ADDRESS IS [address] [place] [address], [address]; MOTHER IS GEMINI RODRIGUEZ, . CM CALLED INDIA RODRIGUEZ, PT'S AUNT, , WHO REQUESTED HOME HEALTH IF POSSIBLE FOR THERAPY SERVICES PERSONAL CARE DOES NOT DO THAT TYPE OF WLRK. THEY HAVE NO PREFERNECE ON PROVIDER, JUST NOT [facility]. CHOICE LETTER COMPLETED. INDIA CONFIRMED THAT PT WILL DISCHARGE VIA AMBULANCE TO HIS MOTHER'S HOME ON [address]. CM NOTIFED AUDREY WOODRUFF VIA MESSAGE AND PAGED TO NOTIFY VERBALLY OF PT AND FAMILY DESIRE FOR HOME HEALTH FOR PHYSICAL THERAPY. PT WILL DISCHARGE HOME TO MOTHER'S HOME AND RESUMPTION OF PERSONAL CARE SERVICES. PT AND FAMILY WOULD LIKE [facility], TO ARRANGE IF PHYSICIAN AGREES AND IF PHYSICIAN PROVIDES ORDER. Director Center: Luis Angel Morse Appended by Luis Angel Morse on 12/15/2018 17:28 CDT: CM RECEIVED CALL FROM AUDREY WOODRUFF WHO APPROVED OF HOME HEALTH IF PT'S PRIMARY WILL FOLLOW FOR ORDERS. CM CALLED [facility], , SPOKE TO CONCRETE BLOCK MASON NURSE ADAN WHO INFORMED CM THAT INTAKE WILL PROCESS THE ORDER TOMORROW FOR POSSIBLE HOME HEALTH SERVICES. CM FAXED REFERRAL TO [facility] AT [phone]. PAINTER APPRENTICE NURSE AND PATIENT NOTIFIED. LUIS ANGEL MORSE,CASE MANAGEMENT DCPIA - Discharge Planning Initial Assessment Updated by [email or web address]: Luis Angel Morse on 12/15/18 4:58 pm * Is the patient Alert and Oriented? Yes * How many steps to enter\exit or inside your home? NONE * PCP DR. GUNTER IN [place] * Pharmacy [facility] * Preadmission Environment Home with Family * ADLs Total Dependent * Equipment Catheter Supplies Hospital Bed Ostomy Supplies Power Chair or Electric Scooter * Other Equipment [employer] - MEDICAL EQUIPMENT PROVIDER * List name and contact numbers for known caregivers / representatives who currently or will assist patient after discharge: INDIA RODRIGUEZ, AUNT, [phone] GEMINI RODRIGUEZ, MOTHER, * Verbal permission to speak to the caregivers and representatives has been obtained from the patient. Yes * Community resources currently utilized Private Duty Care * Please name any agencies selected above. [facility], 7 DAYS, 8 HOURS PER DAY * Additional services required to return to the preadmission environment? No * Can the patient safely return to the preadmission environment? Yes * Has this patient been hospitalized within the prior 30 days at any hospital? No External [facility]iders [facility] Next Contact Date: 12/16/2018 Service Request Date: Service Type: Resolution: Reviewer: Comments: Coverage Notice Reviewer: [id number] - Luis Angel Morse Notice Issued Date-Time: 12/15/2018 15:30 Notice Type: Patient Choice Letter Notice Delivered To: Family Member Relationship to Patient: Aunt Risk Control Product Liability Director Name: INDIA RODRIGUEZ Delivery Method: PHONE - Phone Katherine Days: Prior Verbal Notification: Recipient Understood Notice: Yes Recipient Signature: Med Rec Note Co-signed by Attending: Coverage Notice Comment: ANY HOME HEALTH BUT NOT [facility] Last DP export: 12/16/18 6:21 am Patient Name: JACLYN RODRIGUEZ Page [phone] at 1002 All edits/amendments must be made on the electronic document DICTATION DATE: 12/16/18 100 ROVING MACHINE OPERATOR: TERENCE 12/16/18 1001 RPT#: [id number] DC DATE: STATUS: ADM IN [facility] [address] [place] [address] END OF REPORT
--- NOTE | 2018-12-16 10:10 | MORECARE ---
CASE MANAGEMENT DISCHARGE SUMMARY PATIENT: JACLYN RODRIGUEZ UNIT: [id number] ADM DATE: 12/14/18 AGE: 33 : 81 SEX: M ROOM/BED: D.2122 AUTHOR: RUSTAM,DOC PHYSICIAN: REFERRING PHYSICIAN: RAHUL DEJESUS MD DATE OF SERVICE: 12/16/18 Discharge Plan Patient Name: JACLYN RODRIGUEZ Facility: [facility]:[place] : 1985 Planned Disposition: Home with Home Health Anticipated Discharge Date: 12/16/18 Discharge Date: Expected LOS: 2 Initial Reviewer: [email or web address] Initial Review Date: 12/15/2018 Generated: 12/16/18 11:10 am Comments DCP- Discharge Planning Updated by [email or web address]: Luis Angel Morse on 12/16/18 9:[address] Patient Name: JACLYN RODRIGUEZ Encounter No: [id number] : 1985 Primary Insurance: MEDICAID [place] Anticipated DC Date: 12-16-2018 Planned Disposition: Home with Home Health External Planned Provider: [facility] DCP follow-up note: CM RECEIVED CALL FROM [email or web address], THEY WILL NOT ACCEPT PT FOR HOME HEALTH. CM REVIEWED CHART, FAMILY HAS DECLINED [facility] WITH NO PREFERNCE FOR PROVIDER OF HOME HEALTH. CM CALLED [facility], SPOKE TO LAVERN WHO TOOK REFERRAL AND WILL ACCEPT FOR HOME HEALTH IF PT'S PRIMARY CARE DOCTOR WILL SIGN ORDERS. CM FAXED REFERRAL TO [facility], ADVISED THAT PT WILL DISCHARGE HOME TODAY. NO FURTHER NEEDS IDENIFIED AT THIS TIME. LUIS ANGEL MORSE, CASE MANAGEMENT Luis Angel Morse DCP- Discharge Planning Updated by [id number]: Luis Angel Morse on 12/15/18 4:[address] Patient Name: JACLYN RODRIGUEZ Admission Status: ER Accout number: [id number] Admission Date: 12-14-2018 : 1985 Admission Diagnosis: Attending: RAHUL DEJESUS Current LOS: 1 Anticipated DC Date: 12-15-2018 Planned Disposition: Home Primary Insurance: MEDICAID [place] Discharge Planning Comments: CM MET WITH PT IN ROOM TO DISCUSS DISCHARGE PLANNING AND NEEDS. PT REPORTS LIVING AT HOME AND IS TOTALLY DEPENDENT ON FAMILY AND PERSONAL CARE SERVICES. PT REPORTS HAVING PERSONAL CARE 7 DAYS PER WEEK, 8 HOURS PER DAY. PT WOULD LIKE HOME HEALTH FOR THERAPY AND ASKED CM TO CALL HIS AUNT. PT REPORTS HE WILL BE GOING TO HIS MOTHER'S HOME AT DISCHARGE VIA AMBULANCE, ADDRESS IS [address] [place] [address], [address]; MOTHER IS GEMINI RODRIGUEZ, . CM CALLED INDIA RODRIGUEZ, PT'S AUNT, , WHO REQUESTED HOME HEALTH IF POSSIBLE FOR THERAPY SERVICES PERSONAL CARE DOES NOT DO THAT TYPE OF WLRK. THEY HAVE NO PREFERNECE ON PROVIDER, JUST NOT [facility]. CHOICE LETTER COMPLETED. INDIA CONFIRMED THAT PT WILL DISCHARGE VIA AMBULANCE TO HIS MOTHER[address]S [address] CM NOTIFED AUDREY WOODRUFF VIA MESSAGE AND PAGED TO NOTIFY VERBALLY OF PT AND FAMILY DESIRE FOR HOME HEALTH FOR PHYSICAL THERAPY. PT WILL DISCHARGE HOME TO MOTHER'S HOME AND RESUMPTION OF PERSONAL CARE SERVICES. PT AND FAMILY WOULD LIKE HOME HEALTH, CM TO ARRANGE IF PHYSICIAN AGREES AND IF PHYSICIAN PROVIDES ORDER. Title Investigator: Luis Angel Morse Appended by Luis Angel Morse on 12/15/2018 17:28 CDT: CM RECEIVED CALL FROM AUDREY WOODRUFF WHO APPROVED OF HOME HEALTH IF PT'S PRIMARY WILL FOLLOW FOR ORDERS. CM CALLED [facility], , SPOKE TO SHOT PACKER NURSE ADAN WHO INFORMED CM THAT INTAKE WILL PROCESS THE ORDER TOMORROW FOR POSSIBLE HOME HEALTH SERVICES. CM FAXED REFERRAL TO [email or web address] AT [phone]. NURSING SERVICES MANAGER NURSE AND PATIENT NOTIFIED. LUIS ANGEL MORSE,CASE MANAGEMENT DCPIA - Discharge Planning Initial Assessment Updated by [email or web address]: Luis Angel Morse on 12/15/18 4:58 pm * Is the patient Alert and Oriented? Yes * How many steps to enter\exit or inside your home? NONE * PCP DR. GUNTER IN [place] * Pharmacy [facility] * Preadmission Environment Home with Family * ADLs Total Dependent * Equipment Catheter Supplies Hospital Bed Ostomy Supplies Power Chair or Electric Scooter * Other Equipment [employer] - MEDICAL EQUIPMENT PROVIDER * List name and contact numbers for known caregivers / representatives who currently or will assist patient after discharge: INDIA RODRIGUEZ, AUNT, [phone] GEMINI RODRIGUEZ, MOTHER, * Verbal permission to speak to the caregivers and representatives has been obtained from the patient. Yes * Community resources currently utilized Private Duty Care * Please name any agencies selected above. [facility], 7 DAYS, 8 HOURS PER DAY * Additional services required to return to the preadmission environment? No * Can the patient safely return to the preadmission environment? Yes * Has this patient been hospitalized within the prior 30 days at any hospital? No Coverage Notice Reviewer: [id number] Arelis Morse Notice Issued Date-Time: 12/15/2018 15:30 Notice Type: Patient Choice Letter Notice Delivered To: Family Member Relationship to Patient: Aunt Barrel Drainer Name: INDIA RODRIGUEZ Delivery Method: PHONE - Phone Katherine Days: Prior Verbal Notification: Recipient Understood Notice: Yes Recipient Signature: Med Rec Note Co-signed by Attending: Coverage Notice Comment: ANY HOME HEALTH BUT NOT [facility] Last DP export: 12/16/18 9:02 am Patient Name: JACLYN RODRIGUEZ Page 58427 at 1010 All edits/amendments must be made on the electronic document DICTATION DATE: 12/16/18 1009 PACKAGE MAKER: TERENCE 12/16/18 1009 RPT#: [id number] DC DATE: STATUS: ADM IN [facility] [address] [place] [address] END OF REPORT
--- NOTE | 2018-12-16 11:23 | MORECARE ---
CASE MANAGEMENT DISCHARGE SUMMARY PATIENT: JACLYN RODRIGUEZ UNIT: [id number] ADM DATE: 12/14/18 AGE: 33 : 81 SEX: M ROOM/BED: D.2122 AUTHOR: RUSTAM,DOC PHYSICIAN: REFERRING PHYSICIAN: RAHUL DEJESUS MD DATE OF SERVICE: 12/16/18 Discharge Plan Patient Name: JACLYN RODRIGUEZ Facility: [facility]:[place] : 1985 Planned Disposition: Home with Home Health Anticipated Discharge Date: 12/16/18 Discharge Date: Expected LOS: 2 Initial Reviewer: [id number] Initial Review Date: 12/15/2018 Generated: 12/16/18 12:23 pm Comments DCP- Discharge Planning Updated by [email or web address]: Luis Angel Morse on 12/16/18 9:[address] Patient Name: JACLYN RODRIGUEZ Encounter No: [id number] : 1985 Primary Insurance: MEDICAID [place] Anticipated DC Date: 12-16-2018 Planned Disposition: Home with Home Health External Planned Provider: [facility] DCP follow-up note: CM RECEIVED CALL FROM SANTIAGO OF [facility], THEY WILL NOT ACCEPT PT FOR HOME HEALTH. CM REVIEWED CHART, FAMILY HAS DECLINED [facility] WITH NO PREFERNCE FOR PROVIDER OF HOME HEALTH. CM CALLED [facility], SPOKE TO LAVERN WHO TOOK REFERRAL AND WILL ACCEPT FOR HOME HEALTH IF PT'S PRIMARY CARE DOCTOR WILL SIGN ORDERS. CM FAXED REFERRAL TO [facility], ADVISED THAT PT WILL DISCHARGE HOME TODAY. NO FURTHER NEEDS IDENIFIED AT THIS TIME. LUIS ANGEL MORSE, CASE MANAGEMENT Luis Angel Morse DCP- Discharge Planning Updated by [id number]: Luis Angel Morse on 12/15/18 4:[address] Patient Name: JACLYN RODRIGUEZ Admission Status: ER Accout number: [id number] Admission Date: 12-14-2018 : 1985 Admission Diagnosis: Attending: RAHUL DEJESUS Current LOS: 1 Anticipated DC Date: 12-15-2018 Planned Disposition: Home Primary Insurance: MEDICAID [place] Discharge Planning Comments: CM MET WITH PT IN ROOM TO DISCUSS DISCHARGE PLANNING AND NEEDS. PT REPORTS LIVING AT HOME AND IS TOTALLY DEPENDENT ON FAMILY AND PERSONAL CARE SERVICES. PT REPORTS HAVING PERSONAL CARE 7 DAYS PER WEEK, 8 HOURS PER DAY. PT WOULD LIKE HOME HEALTH FOR THERAPY AND ASKED CM TO CALL HIS AUNT. PT REPORTS HE WILL BE GOING TO HIS MOTHER'S HOME AT DISCHARGE VIA AMBULANCE, ADDRESS [place] [address] [place] [address], [address]; MOTHER IS GEMINI RODRIGUEZ, . CM CALLED INDIA RODRIGUEZ, PT'S AUNT, , WHO REQUESTED HOME HEALTH IF POSSIBLE FOR THERAPY SERVICES PERSONAL CARE DOES NOT DO THAT TYPE OF WLRK. THEY HAVE NO PREFERNECE ON PROVIDER, JUST NOT [facility]. CHOICE LETTER COMPLETED. INDIA CONFIRMED THAT PT WILL DISCHARGE VIA AMBULANCE TO HIS MOTHER'S [address] CM NOTIFED AUDREY WOODRUFF VIA MESSAGE AND PAGED TO NOTIFY VERBALLY OF PT AND FAMILY DESIRE FOR HOME HEALTH FOR PHYSICAL THERAPY. PT WILL DISCHARGE HOME TO MOTHER'S HOME AND RESUMPTION OF PERSONAL CARE SERVICES. PT AND FAMILY WOULD LIKE HOME HEALTH, CM TO ARRANGE IF PHYSICIAN AGREES AND IF PHYSICIAN PROVIDES ORDER. Education Sales Consultant: Luis Angel Morse Appended by Luis Angel Morse on 12/15/2018 17:28 CDT: CM RECEIVED CALL FROM AUDREY WOODRUFF WHO APPROVED OF HOME HEALTH IF PT'S PRIMARY WILL FOLLOW FOR ORDERS. CM CALLED [facility], , SPOKE TO FOOD AND BEVERAGE LEAD NURSE ADAN WHO INFORMED CM THAT INTAKE WILL PROCESS THE ORDER TOMORROW FOR POSSIBLE HOME HEALTH SERVICES. CM FAXED REFERRAL TO [facility] AT [phone]. FIELD SPECIALIST NURSE AND PATIENT NOTIFIED. LUIS ANGEL MORSE,CASE MANAGEMENT DCPIA - Discharge Planning Initial Assessment Updated by [id number]: Luis Angel Morse on 12/15/18 4:58 pm * Is the patient Alert and Oriented? Yes * How many steps to enter\exit or inside your home? NONE * PCP DR. GUNTER IN [place] * Pharmacy [facility] * Preadmission Environment Home with Family * ADLs Total Dependent * Equipment Catheter Supplies Hospital Bed Ostomy Supplies Power Chair or Electric Scooter * Other Equipment [employer] - MEDICAL EQUIPMENT PROVIDER * List name and contact numbers for known caregivers / representatives who currently or will assist patient after discharge: INDIA RODRIGUEZ, AUNT, [phone] GEMINI RODRIGUEZ, MOTHER, * Verbal permission to speak to the caregivers and representatives has been obtained from the patient. Yes * Community resources currently utilized Private Duty Care * Please name any agencies selected above. [facility], 7 DAYS, 8 HOURS PER DAY * Additional services required to return to the preadmission environment? No * Can the patient safely return to the preadmission environment? Yes * Has this patient been hospitalized within the prior 30 days at any hospital? No Coverage Notice Reviewer: [id number] Arelis Morse Notice Issued Date-Time: 12/15/2018 15:30 Notice Type: Patient Choice Letter Notice Delivered To: Family Member Relationship to Patient: Aunt Alarm Technician Name: INDIA RODRIGUEZ Delivery Method: PHONE - Phone Katherine Days: Prior Verbal Notification: Recipient Understood Notice: Yes Recipient Signature: Med Rec Note Co-signed by Attending: Coverage Notice Comment: ANY HOME HEALTH BUT NOT [facility] Last DP export: 12/16/18 9:10 am Patient Name: JACLYN RODRIGUEZ Page [phone] at 1123 All edits/amendments must be made on the electronic document DICTATION DATE: 12/16/18 1123 BRASS PICKLER: TERENCE 12/16/18 1123 RPT#: [id number] DC DATE: STATUS: ADM IN [facility] [address] [place] [address] END OF REPORT
--- NOTE | 2018-12-16 12:33 | NUR ---
PT WANTED PORT FLUSHED WITH HEPARIN. BOTH MYSELF AND BEDSIDE NURSE EXPLAINED TO PT OUR POLICY IS TO FLUSH WITH SALINE. PT BECAME VERY ARGUMENTATIVE TO POINT OF BEING AGGRESIVE. HE WANTED TO SPEAK TO A PHYSICIAN ABOUT HAVING A HEPARIN FLUSH. Pavel VARNERN ON THE UNIT AND EXPLAINED TO PT HEPARIN FLUSH WAS NOT NECESSARY AND SHE WOULD NOT ORDER IT. I THEN FLUSHED PORT WITH SALINE AND REMOVED THE NEEDLE. TIP OF NEEDLE INTACT. NO BLEEDING NOTED AND DRESSING APPLIED OF 2X2. PT THEN WANTED A COLOSTOMY BAG. BAG SEND HOME WITH PT. AMBULANCE HERE TO TRANSPORT PT.
--- NOTE | 2018-12-16 12:47 | NUR ---
DC HOME PER AMBULANCE
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
== END 2018-12-16 12:48 | disposition home health service (06) | DRG 286 ==
LOC: D.ER 08:36 → D.M2 11:27 → OBSVTIME 11:28 → D.M2 11:40
PROVIDERS: Emergency Medicine; Internal Medicine Interventional Cardiology; ADMIT Internal Medicine Nephrology; ATTEND Internal Medicine Nephrology
PROC: B2151ZZ Fluoroscopy of Left Heart using Low Osmolar Contrast (ICD-10-PCS; 2018-12-15)
PROC: 4A023N7 Measurement of Cardiac Sampling and Pressure, Left Heart, Percutaneous Approach (ICD-10-PCS; 2018-12-15)
PROC: B2111ZZ Fluoroscopy of Multiple Coronary Arteries using Low Osmolar Contrast (ICD-10-PCS; principal; 2018-12-15 10:00)
DX: I48.91 Unspecified atrial fibrillation (principal); G82.52 Quadriplegia, C1-C4 incomplete; I25.110 Atherosclerotic heart disease of native coronary artery with unstable angina pectoris; N39.0 Urinary tract infection, site not specified; F17.213 Nicotine dependence, cigarettes, with withdrawal; R94.31 Abnormal electrocardiogram [ECG] [EKG]; K21.9 Gastro-esophageal reflux disease without esophagitis; L89.152 Pressure ulcer of sacral region, stage 2; E87.6 Hypokalemia

== ENCOUNTER 2018-12-30 03:59 | Emergency (ER) | payer MEDICAID ==
[~2018-12-30] VITALS: Ht 162.6 cm; Wt 54.5 kg
[~2018-12-30 03:59] MED LIST changes: +CARDIZEM CD180 MG PO
[2018-12-30 04:13] VITALS: Ht 162.6 cm; Wt 54.5 kg
[2018-12-30 05:20] LABS: BASOPHILS 0.2 % (0-2); EOSINOPHILS 3.9 % (0-7); HEMATOCRIT 36.6 % (42.0-54.0); HEMOGLOBIN 12.7 g/dL (13.5-17.5); IMMATURE GRANULOCYTES 0.2 % (0-5); LYMPHOCYTES 37.9 % (15-50); MCH 33.8 pg (26.0-34.0); MCHC 34.7 g/dL (31.0-37.0); MCV 97.3 fL (80.0-100.0); MEAN PLATELET VOLUME 10.8 fL (7.4-10.4); MONOCYTES 8.9 % (2-11); NEUTROPHILS 48.9 % (40-80); PLATELET COUNT 136 10x3/uL (130-400); RBC 3.76 10x6/uL (4.20-6.10); WBC 4.9 10x3/uL (4.8-10.8)
[2018-12-30 05:38] LABS: ALBUMIN 3.3 g/dL (3.4-5.0); ALKALINE PHOSPHATASE 97 U/L (46-116); ALT (SGPT) 17 U/L (10-68); BILIRUBIN - TOTAL 0.56 mg/dL (0.2-1.3); CALC OSMOLALITY 283 mosm/kg (275-300); CALCIUM 9.5 mg/dL (8.5-10.1); CHLORIDE - SERUM 109 mmol/L (98-107); CREATININE - SERUM 0.6 mg/dL (0.6-1.3); GLUCOSE 94 mg/dL (74-106); PROTEIN - SERUM 6.8 g/dL (6.4-8.2); SODIUM 143 mmol/L (136-145); UREA NITROGEN 11 mg/dL (7-18); eGFR NON AFRICAN AMERICAN > 90 mL/min (90-120)
[2018-12-30 05:49] LABS: LIPASE 91 U/L (73-393); MAGNESIUM - SERUM 1.7 mg/dL (1.8-2.4); PRO BNP 39 pg/mL (0-125)
[2018-12-30 05:52] LABS: TROPONIN-I < 0.017 ng/mL (0.000-0.060)
[2018-12-30 06:33] VITALS: BP 135/96
== END 2018-12-30 06:39 | disposition home or self-care (01) ==
LOC: D.ER 03:59
PROVIDERS: Family Medicine
DX: R07.89 Other chest pain (principal); G82.50 Quadriplegia, unspecified

== ENCOUNTER 2019-03-14 21:52 | Inpatient (IN) | payer MEDICAID ==
[~2019-03-14] VITALS: Ht 162.6 cm; Wt 56.7 kg
[2019-03-14 22:37] LABS: BASOPHILS 0.1 % (0-2); EOSINOPHILS 0.8 % (0-7); HEMATOCRIT 35.4 % (42.0-54.0); HEMOGLOBIN 11.9 g/dL (13.5-17.5); IMMATURE GRANULOCYTES 0.2 % (0-5); LYMPHOCYTES 21.5 % (15-50); MCH 33.4 pg (26.0-34.0); MCHC 33.6 g/dL (31.0-37.0); MCV 99.4 fL (80.0-100.0); MEAN PLATELET VOLUME 10.5 fL (7.4-10.4); MONOCYTES 17.2 % (2-11); NEUTROPHILS 60.2 % (40-80); PLATELET COUNT 124 10x3/uL (130-400); RBC 3.56 10x6/uL (4.20-6.10); RDW 12.6 % (11.5-14.5)
[2019-03-14 22:39] LABS: APPEARANCE SL CLDY (CLEAR); BILIRUBIN NEGATIVE (NEGATIVE); COLOR YELLOW (YELLOW); GLUCOSE NEGATIVE (NEGATIVE); KETONE NEGATIVE (NEGATIVE); NITRITE POSITIVE (NEGATIVE); PROTEIN TRACE mg/dL (NEGATIVE); SPECIFIC GRAVITY 1.015 (1.005-1.020); UROBILINOGEN NORMAL (NORMAL)
[2019-03-14 22:40] LABS: BACTERIA MANY /hpf (NEGATIVE); EPITHELIAL CELLS 0-5 /hpf (0-5); RED CELLS - URINE 0-5 /hpf (0-5)
[2019-03-14 22:47] LABS: CALC OSMOLALITY 286 mosm/kg (275-300); CALCIUM 8.3 mg/dL (8.5-10.1); CARBON DIOXIDE 25.5 mmol/L (21.0-32.0); CHLORIDE - SERUM 107 mmol/L (98-107); CREATININE - SERUM 0.8 mg/dL (0.6-1.3); GLUCOSE 94 mg/dL (74-106); POTASSIUM - SERUM 3.4 mmol/L (3.5-5.1); SODIUM 143 mmol/L (136-145); UREA NITROGEN 18 mg/dL (7-18); eGFR NON AFRICAN AMERICAN > 90 mL/min (90-120)
[2019-03-14 23:06] LABS: ALKALINE PHOSPHATASE 81 U/L (46-116); ALT (SGPT) 14 U/L (10-68); BILIRUBIN - TOTAL 0.64 mg/dL (0.2-1.3); PROTEIN - SERUM 6.8 g/dL (6.4-8.2)
--- NOTE | 2019-03-14 23:25 | NUR ---
PT LEFT ED VIA STRETCHER FOR CT.
--- NOTE | 2019-03-14 23:48 | NUR ---
PT RETURNED TO ED VIA STRETCHER FROM CT.
[2019-03-14 23:50] VITALS: BP 83/52
--- NOTE | 2019-03-15 01:45 | NUR ---
RECIEVED REPORT FROM MASON RAYA. PT ARRIVED BY STRETCHER. PT AAOX4, VSS WITH BP 95/57 @ THIS TIME. MODERATE TO KNOW MOVEMENT ON BOTH EXTREMITIES. HANSEN BAG INTACT. REDNESS ARE SORE NOTED ON COCCYX. PT STATES PAIN IS A 8/10 AT THIS TIME AND THAT IT IS GENERALIZED. WILL ADMINITSTER PAIN MED WHEN DUE. INITIAL ASSESSMENT COMPLETED. PT A GOOD HX. PT DENIES ANY FURTHER NEEDS AT THIS TIME. WILL CPOC.
[2019-03-15 01:52] VITALS: BP 91/57; BMI 21.5
--- NOTE | 2019-03-15 03:27 | NUR ---
PT C/O GENERALIZED BODY PAIN. PO PERCOCET GIVEN AT THIS TIME. ALSO PEANUT BUTTER AND CRACKER PROVIDED WITH FEEDING ASSISTANCE. PT VOICED THANKS. PT DENIES ANY FURTHER NEEDS AT THIS TIME WILL CPOC. CL WITHIN REACH.
[2019-03-15 05:33] LABS: HEMATOCRIT 31.3 % (42.0-54.0); HEMOGLOBIN 10.3 g/dL (13.5-17.5); MCH 33.1 pg (26.0-34.0); MCHC 32.9 g/dL (31.0-37.0); MCV 100.6 fL (80.0-100.0); MEAN PLATELET VOLUME 11.3 fL (7.4-10.4); PLATELET COUNT 107 10x3/uL (130-400); RBC 3.11 10x6/uL (4.20-6.10); RDW 12.7 % (11.5-14.5); WBC 7.8 10x3/uL (4.8-10.8)
[2019-03-15 06:08] LABS: ALBUMIN 2.6 g/dL (3.4-5.0); ALKALINE PHOSPHATASE 72 U/L (46-116); ALT (SGPT) 15 U/L (10-68); BILIRUBIN - TOTAL 0.63 mg/dL (0.2-1.3); CALC OSMOLALITY 286 mosm/kg (275-300); CALCIUM 7.6 mg/dL (8.5-10.1); CARBON DIOXIDE 24.1 mmol/L (21.0-32.0); CHLORIDE - SERUM 110 mmol/L (98-107); CREATININE - SERUM 0.7 mg/dL (0.6-1.3); GLUCOSE 106 mg/dL (74-106); MAGNESIUM - SERUM 1.9 mg/dL (1.8-2.4); PROTEIN - SERUM 6.1 g/dL (6.4-8.2); SODIUM 143 mmol/L (136-145); UREA NITROGEN 17 mg/dL (7-18); eGFR NON AFRICAN AMERICAN > 90 mL/min (90-120)
--- NOTE | 2019-03-15 08:06 | NUR ---
PT RESTING. ALERT AND ORIENTED. SPEECH IS SLIGHTLY SLURRED. RECIEVED PAIN MEDICATION UPON REQUEST. DENIES FURTHER NEEDS AT THIS TIME. RR EVEN AND UNLABORED. BED IN LOWEST POSITION. CALL LIGHT WITHIN REACH. WILL CONTINUE TO MONITOR.
--- NOTE | 2019-03-15 08:30 | NUR ---
PT ASSISTED WITH MEAL. ASKED ABOUT RESUMING HIS PRN XANAX THAT HE TAKES AT HOME. AUDREY CHEW NOTIFIED, STATED SHE WOULD TAKE A LOOK.
[2019-03-15 09:32] VITALS: BP 103/65
--- NOTE | 2019-03-15 13:00 | NUR ---
PT ASKED AGAIN ABOUT XANAX. STATES JEEVAN APN CAME IN THERE TO TALK WITH HIM ABOUT GETTING IT RESUMED.
[2019-03-15 13:09] VITALS: BP 118/81
[2019-03-15 13:25] LABS: EOSINOPHILS 1 % (0-7); LYMPHOCYTES 23 % (15-50); MONOCYTES 25 % (2-11); NEUTROPHILS 49 % (40-80); PLATELET ESTIMATE DECREASED
--- NOTE | 2019-03-15 13:25 | NUR ---
I have reviewed this patient and I concur with the Shift Assessment completed by the Licensed Practical Nurse today this shift.
[2019-03-15 13:26] LABS: ANISOCYTOSIS OCC
[2019-03-15 15:58] VITALS: Ht 162.6 cm; Wt 56.7 kg
[2019-03-15 16:45] VITALS: BP 148/94
[2019-03-15 20:00] VITALS: BP 114/80
[2019-03-16] VITALS: BP 128/88
[2019-03-16 04:00] VITALS: BP 138/91
[2019-03-16 05:40] LABS: BASOPHILS 0.2 % (0-2); EOSINOPHILS 2.8 % (0-7); HEMOGLOBIN 10.6 g/dL (13.5-17.5); IMMATURE GRANULOCYTES 0.2 % (0-5); LYMPHOCYTES 38.2 % (15-50); MCH 32.6 pg (26.0-34.0); MCHC 33.1 g/dL (31.0-37.0); NEUTROPHILS 43.6 % (40-80); PLATELET COUNT 108 10x3/uL (130-400); RBC 3.25 10x6/uL (4.20-6.10); RDW 12.3 % (11.5-14.5)
[2019-03-16 05:51] LABS: CALCIUM 7.9 mg/dL (8.5-10.1); CARBON DIOXIDE 26.5 mmol/L (21.0-32.0); CHLORIDE - SERUM 110 mmol/L (98-107); GLUCOSE 82 mg/dL (74-106); POTASSIUM - SERUM 3.9 mmol/L (3.5-5.1); SODIUM 141 mmol/L (136-145)
[2019-03-16 05:54] LABS: CALC OSMOLALITY 277 mosm/kg (275-300); CREATININE - SERUM 0.4 mg/dL (0.6-1.3); UREA NITROGEN 6 mg/dL (7-18); eGFR NON AFRICAN AMERICAN > 90 mL/min (90-120)
[2019-03-16 06:13] LABS: MCV 98.5 fL (80.0-100.0); WBC 4.6 10x3/uL (4.8-10.8)
--- NOTE | 2019-03-16 07:49 | NUR ---
PT RESTING. RR EVEN AND UNLABORED. DENIES NEEDS OR PAIN AT THIS TIME. VSS. BED IN LOWEST POSITION. CALL LIGHT POSITIONED FOR PT WITHIN REACH. WILL CONTINUE TO MONITOR.
[2019-03-16 08:41] VITALS: BP 142/98
--- NOTE | 2019-03-16 11:07 | NUR ---
I have reviewed this patient and I concur with the Shift Assessment completed by the Licensed Practical Nurse today this shift.
[2019-03-16 13:00] VITALS: BP 125/60; BP 154/98
[2019-03-16 16:38] VITALS: BP 136/86
[2019-03-16 20:00] VITALS: BP 110/65
--- NOTE | 2019-03-16 20:06 | NUR ---
REPORT RECIEVED AND ROUNDING COMPLETE. PATIENT LAYING IN BED IN SUPINE POSTITON. HOB ELEVATED, PATIENT HAS A RIGHT CHEST PORT, CHEST PORT PATENT AND DRESSING C/D/I. PATIENT STATES HE HAS NO NEEDS AT THIS TIME AND IS LOOKING FORWARD TO GOING HOME TOMORROW. PATIENT IS A&O X4. PATIENT HAS A CONDOM CATH IN PLACE AND WORKING. PATIENT SHOWING NO S/SX OF DISTRESS AT THIS TIME. CALL LIGHT VIA BREATH LIGHT IN PLACE AND WITHIN REACH. BED IN LOWEST LOCKED POSITON.
[2019-03-17] VITALS: BP 131/90
--- NOTE | 2019-03-17 01:22 | NUR ---
I have reviewed this patient and I concur with the Shift Assessment completed by the Licensed Practical Nurse today this shift.
[2019-03-17 04:00] VITALS: BP 122/88
[2019-03-17 05:25] LABS: BASOPHILS 0.2 % (0-2); HEMATOCRIT 30.6 % (42.0-54.0); HEMOGLOBIN 10.4 g/dL (13.5-17.5); IMMATURE GRANULOCYTES 0.2 % (0-5); LYMPHOCYTES 35.7 % (15-50); MCH 33.1 pg (26.0-34.0); MCV 97.5 fL (80.0-100.0); MEAN PLATELET VOLUME 10.8 fL (7.4-10.4); MONOCYTES 16.1 % (2-11); NEUTROPHILS 44.8 % (40-80); RBC 3.14 10x6/uL (4.20-6.10); RDW 12.1 % (11.5-14.5)
[2019-03-17 05:52] LABS: CALC OSMOLALITY 276 mosm/kg (275-300); CALCIUM 8.1 mg/dL (8.5-10.1); CHLORIDE - SERUM 108 mmol/L (98-107); CREATININE - SERUM 0.5 mg/dL (0.6-1.3); GLUCOSE 83 mg/dL (74-106); POTASSIUM - SERUM 3.7 mmol/L (3.5-5.1); SODIUM 141 mmol/L (136-145); UREA NITROGEN 5 mg/dL (7-18); eGFR NON AFRICAN AMERICAN > 90 mL/min (90-120)
[2019-03-17 06:00] LABS: PLATELET COUNT 150 10x3/uL (130-400)
--- NOTE | 2019-03-17 07:48 | NUR ---
PT LAYING IN BED. RR EVEN AND UNLABORED. ALERT AND ORIENTED. STATES NECK IS HURTING. WILL RECIEVE PAIN MEDICATION PER ORDER. DENIES FURTHER NEEDS AT THIS TIME. BED IN LOWEST POSITION. CALL LIGHT POSITIONED WITHIN REACH. WILL CONTINUE TO MONITOR.
[2019-03-17 09:43] VITALS: BP 129/92
[2019-03-17] MEDS ORDERED: LEVOFLOXACIN500 MG PO (09:49)
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
--- NOTE | 2019-03-17 13:41 | MORECARE ---
CASE MANAGEMENT DISCHARGE SUMMARY PATIENT: JACLYN RODRIGUEZ UNIT: [id number] ADM DATE: 03/15/19 AGE: 33 : 81 SEX: M ROOM/BED: D.2137 AUTHOR: DIONNE EASTON PHYSICIAN: REFERRING PHYSICIAN: RAHUL DEJESUS MD DATE OF SERVICE: 03/17/19 Discharge Plan Patient Name: JACLYN RODRIGUEZ [facility] [facility] 1985 Planned Disposition: Home Anticipated Discharge Date: 03/17/19 Discharge Date: Expected LOS: 2 Initial Reviewer: [email or web address] Initial Review Date: 03/17/2019 Generated: 03/17/19 2:41 pm Patient Name: JACLYN RODRIGUEZ Page [id number] at 1341 All edits/amendments must be made on the electronic document DICTATION DATE: 03/17/19 1341 VAN LOADER: TERENCE 03/17/19 1341 RPT#: [id number] DC DATE: STATUS: ADM IN [facility] [address] [place] [address] END OF REPORT
[2019-03-17 13:43] VITALS: BP 93/57
--- NOTE | 2019-03-17 13:45 | NUR ---
D/C INSTRUCTIONS REVIEWED WITH PT. PT UNABLE TO SIGN DUE TO DISABILITY. VERBALIZED UNDERSTANDING AND NO FURTHER QUESTIONS AT THIS TIME. MONITOR REMOVED AND RETURNED TO [facility] T[facility]. INFUSAPORT ACCESS HEPARIN LOCKED AND D/C WITH NEEDLE INTACT. PT ASSISTED GETTING DRESSED. [facility] CONTACTED, STATED THEY WOULD BE THERE WITHIN 30 MINUTES.
--- NOTE | 2019-03-17 13:49 | MORECARE ---
CASE MANAGEMENT DISCHARGE SUMMARY PATIENT: JACLYN RODRIGUEZ UNIT: [id number] ADM DATE: 03/15/19 AGE: 33 : 81 SEX: M ROOM/BED: D.2137 AUTHOR: DIONNE EASTON PHYSICIAN: REFERRING PHYSICIAN: RAHUL DEJESUS MD DATE OF SERVICE: 03/17/19 Discharge Plan Patient Name: JACLYN RODRIGUEZ [facility] [facility] 1985 Planned Disposition: Home Anticipated Discharge Date: 03/17/19 Discharge Date: Expected LOS: 2 Initial Reviewer: [email or web address] Initial Review Date: 03/17/2019 Generated: 03/17/19 2:49 pm DCPIA - Discharge Planning Initial Assessment Updated by [email or web address]: Luis Angel Hughes on 03/17/19 1:45 pm * Is the patient Alert and Oriented? Yes * How many steps to enter\exit or inside your home? NOEN * PCP DR. GUNTER IN [place] * Pharmacy [facility] * Preadmission Environment Home with Family * ADLs Total Dependent * Equipment Catheter Supplies Hospital Bed Ostomy Supplies Power Chair or Electric Scooter * Other Equipment [employer], MEDICAL EQUIPMENT PROVIDER * List name and contact numbers for known caregivers / representatives who currently or will assist patient after discharge: INDIA RODRIGUEZ, AUNT, * Verbal permission to speak to the caregivers and representatives has been obtained from the patient. Yes * Community resources currently utilized Private Duty Care * Please name any agencies selected above. [facility], 7 DAYS PER WEEK, 8 HOURS PER DAY * Additional services required to return to the preadmission environment? No * Can the patient safely return to the preadmission environment? Yes * Has this patient been hospitalized within the prior 30 days at any hospital? No Last DP export: 03/17/19 12:41 p Patient Name: JALCYN RODRIGUEZ Page 62069 at 1347 All edits/amendments must be made on the electronic document DICTATION DATE: 03/17/19 1349 ROUTE SALES DRIVER: TERENCE 03/17/19 1349 RPT#: [id number] DC DATE: STATUS: ADM IN [facility] [address] [place] [address] END OF REPORT
--- NOTE | 2019-03-17 13:58 | MORECARE ---
CASE MANAGEMENT DISCHARGE SUMMARY PATIENT: JACLYN RODRIGUEZ UNIT: [id number] ADM DATE: 03/15/19 AGE: 33 : 81 SEX: M ROOM/BED: D.1543 AUTHOR: RUSTAM,DOC PHYSICIAN: REFERRING PHYSICIAN: RAHUL DEJESUS MD DATE OF SERVICE: 03/17/19 Discharge Plan Patient Name: JACLYN RODRIGUEZ Facility: [facility]:[place] : 1985 Planned Disposition: Home Anticipated Discharge Date: 03/17/19 Discharge Date: Expected LOS: 2 Initial Reviewer: [email or web address] Initial Review Date: 03/17/2019 Generated: 03/17/19 2:57 pm Comments DCP- Discharge Planning Updated by [email or web address]: Luis Angel Hughes on 03/17/19 12:[address] Patient Name: JACLYN RODRIGUEZ Admission Status: ER Accout number: [id number] Admission Date: 03-15-2019 : 1985 Admission Diagnosis: Attending: RAHUL DEJESUS Current LOS: 2 Anticipated DC Date: 03-17-2019 Planned Disposition: Home Primary Insurance: MEDICAID [place] Discharge Planning Comments: CM MET WITH PT IN ROOM TO DISCUSS DISCHARGE PLANNING AND NEEDS. PT REPORTS LIVING AT HOME WITH HIS AUNT. PT IS DEPENDENT ON FAMILY AND PERSONAL CARE DAILY TO TAKE CARE OF HIM. PT HAS HOSPITAL BED, ELECTRIC WHEELCHAIR (THEY PHYSICALLY LIFT HIM TO TRANSFER), OSTOMY AND CATHETER SUPPLIES FROM [facility]. CM DISCUSSED AVAILABILITY OF HOME HEALTH, REHAB SERVICES AND MEDICAL EQUIPMENT. PT DENIES DISCHARGE NEEDS, REPORTS AMBULANCE WILL PICK HIM UP FOR DISCHARGE HOME. PT THINKS HE HAS HOME HEALTH BUT CANNOT REMEMBER THE NAME OF THE COMPANY. CM CALLED PT'S AUNT, INDIA RODRIGUEZ, . INDIA IS AT WORK NOW. PT HAS PERSONAL CARE WITH SUPERIOR SNF AND DOES NOT HAVE HOME HEALTH. LYDIA REPORTS PT HAVING NO NEEDS FOR DISCHARGE HOME AND TO CALL HER WHEN PICKED UP BY AMBULANCE AND SHE WILL ARRANGE EITHER A CAREGIVER OR FAMILY MEMBER TO BE HOME TO RECEIVE PT FROM AMBULANCE. NURSE UNIT MANAGER NURSE NOTIFIED AND PROVIDED INDIA'S CONTACT PHONE NUMBER. Honing Machine Try Out Setter: Luis Angel Hughes DCPIA - Discharge Planning Initial Assessment Updated by [email or web address]: Luis Angel Hardywell on 03/17/19 1:45 pm * Is the patient Alert and Oriented? Yes * How many steps to enter\exit or inside your home? NOEN * PCP DR. GUNTER IN [place] * Pharmacy [facility] * Preadmission Environment Home with Family * ADLs Total Dependent * Equipment Catheter Supplies Hospital Bed Ostomy Supplies Power Chair or Electric Scooter * Other Equipment [employer], MEDICAL EQUIPMENT PROVIDER * List name and contact numbers for known caregivers / representatives who currently or will assist patient after discharge: INDIA RODRIGUEZ, AUNT, * Verbal permission to speak to the caregivers and representatives has been obtained from the patient. Yes * Community resources currently utilized Private Duty Care * Please name any agencies selected above. [facility], 7 DAYS PER WEEK, 8 HOURS PER DAY * Additional services required to return to the preadmission environment? No * Can the patient safely return to the preadmission environment? Yes * Has this patient been hospitalized within the prior 30 days at any hospital? No Last DP export: 03/17/19 12:49 p Patient Name: JACLYN RODRIGUEZ Page 82635 at 1358 All edits/amendments must be made on the electronic document DICTATION DATE: 03/17/191356 ENDOSCOPY TECHNICAN: TERENCE 03/17/191356 RPT#: [id number] DC DATE: STATUS: ADM IN [facility] [address] [place] [address] END OF REPORT
--- NOTE | 2019-03-17 14:44 | NUR ---
PATIENT IS WANTING A FLU SHOT, ORDERED.
--- NOTE | 2019-03-17 16:20 | NUR ---
PT LEFT VIA AMBULANCE WITH ALL BELONGINGS. DENIED ALLOWING ME TO CHANGE MEPILEX ON COCCYX.
== END 2019-03-17 16:39 | disposition home or self-care (01) | DRG 698 ==
LOC: D.ER 21:52 → D.M2 03-15 00:55
PROVIDERS: Family Medicine; ADMIT Internal Medicine Nephrology; ATTEND Internal Medicine Nephrology
DX: T83.518A Infection and inflammatory reaction due to other urinary catheter, initial encounter (principal); A41.9 Sepsis, unspecified organism; G82.50 Quadriplegia, unspecified; J18.1 Lobar pneumonia, unspecified organism; E87.1 Hypo-osmolality and hyponatremia; N39.0 Urinary tract infection, site not specified; K59.00 Constipation, unspecified; L89.152 Pressure ulcer of sacral region, stage 2; I25.10 Atherosclerotic heart disease of native coronary artery without angina pectoris; K21.9 Gastro-esophageal reflux disease without esophagitis; D64.9 Anemia, unspecified; I48.91 Unspecified atrial fibrillation; F41.8 Other specified anxiety disorders; Y84.9 Medical procedure, unspecified as the cause of abnormal reaction of the patient, or of later complication, without mention of misadventure at the time of the procedure

== ENCOUNTER 2019-07-17 07:59 | Inpatient (IN) | payer MEDICAID ==
[2019-07-17] VITALS (7 sets, daily range): BP systolic 99–150; BP diastolic 68–95; BMI 18.8
[~2019-07-17] VITALS: Ht 162.6 cm; Wt 49.9 kg
[~2019-07-17 07:59] MED LIST changes: +LEVOFLOXACIN500 MG PO
[2019-07-17 08:52] LABS: BASOPHILS 0.2 % (0-2); EOSINOPHILS 1.1 % (0-7); HEMATOCRIT 39.4 % (42.0-54.0); HEMOGLOBIN 13.5 g/dL (13.5-17.5); IMMATURE GRANULOCYTES 0.2 % (0-5); MCH 33.8 pg (26.0-34.0); MCHC 34.3 g/dL (31.0-37.0); MCV 98.7 fL (80.0-100.0); MONOCYTES 10.1 % (2-11); NEUTROPHILS 69.4 % (40-80); PLATELET COUNT 136 10x3/uL (130-400); RBC 3.99 10x6/uL (4.20-6.10); RDW 13.3 % (11.5-14.5); WBC 6.4 10x3/uL (4.8-10.8)
[2019-07-17 08:53] LABS: CALC OSMOLALITY 277 mosm/kg (275-300); CALCIUM 8.8 mg/dL (8.5-10.1); CARBON DIOXIDE 27.8 mmol/L (21.0-32.0); CHLORIDE - SERUM 106 mmol/L (98-107); CREATININE - SERUM 0.5 mg/dL (0.6-1.3); GLUCOSE 102 mg/dL (74-106); POTASSIUM - SERUM 3.8 mmol/L (3.5-5.1); SODIUM 140 mmol/L (136-145); UREA NITROGEN 9 mg/dL (7-18); eGFR NON AFRICAN AMERICAN > 90 mL/min (90-120)
[2019-07-17 08:54] LABS: BILIRUBIN NEGATIVE (NEGATIVE); GLUCOSE NEGATIVE (NEGATIVE); KETONE MODERATE mg/dL (NEGATIVE); NITRITE POSITIVE (NEGATIVE); UROBILINOGEN 4 mg/dL (NORMAL)
[2019-07-17 08:58] LABS: RED CELLS - URINE 0-5 /hpf (0-5); WHITE CELLS - URINE 0-5 /hpf (NEGATIVE)
[2019-07-17 08:59] LABS: BACTERIA MANY /hpf (NEGATIVE); EPITHELIAL CELLS 0-5 /hpf (0-5)
[2019-07-17 09:00] LABS: ALBUMIN 3.3 g/dL (3.4-5.0); ALKALINE PHOSPHATASE 83 U/L (30-120); ALT (SGPT) 14 U/L (10-68); PROTEIN - SERUM 7.4 g/dL (6.4-8.2)
[2019-07-17] MEDS ORDERED: OXYCODONE HCL10 MG PO (10:18)
--- NOTE | 2019-07-17 10:26 | MORECARE ---
CASE MANAGEMENT DISCHARGE SUMMARY PATIENT: JACLYN RODRIGUEZ UNIT: [id number] ADM DATE: 07/17/19 AGE: 34 : 81 SEX: M ROOM/BED: D.2216 AUTHOR: DIONNE EASTON PHYSICIAN: REFERRING PHYSICIAN: MARGRET CHERY MD DATE OF SERVICE: 07/17/19 Discharge Plan Patient Name: JACLYN RODRIGUEZ [facility] [facility] 1985 Planned Disposition: Anticipated Discharge Date: Discharge Date: Expected LOS: Initial Reviewer: [email or web address] Initial Review Date: 07/17/2019 Generated: 07/17/19 11:25 am Patient Name: JACLYN RODRIGUEZ Page 03592 at 1026 All edits/amendments must be made on the electronic document DICTATION DATE: 07/17/19 1025 FIELD PROPERTY LOSS SPECIALIST: TERENCE 07/17/19 1025 RPT#: [id number] DC DATE: STATUS: ADM IN [facility] [address] [place] [address] END OF REPORT
--- NOTE | 2019-07-17 19:30 | NUR ---
PATIENT LYING IN BED, A&0. RIGHT CHEST PORT, NS@75. ROOM AIR. PATIENT REQUESTS PAIN MEDICINE AT THIS TIME, RATES PAIN 8/10. NO FURTHER NEEDS AT THIS TIME. BED IN LOW POSITION. BEDSIDE TABLE AND CALL LIGHT WITHIN REACH.
[2019-07-18] VITALS: BP 111/77
[2019-07-18 04:00] VITALS: BP 125/86
[2019-07-18 07:58] LABS: BASOPHILS 0 % (0-2); EOSINOPHILS 2.1 % (0-7); HEMATOCRIT 35.3 % (42.0-54.0); LYMPHOCYTES 37.8 % (15-50); MCH 33.8 pg (26.0-34.0); MCV 99.4 fL (80.0-100.0); MEAN PLATELET VOLUME 11.8 fL (7.4-10.4); NEUTROPHILS 44.1 % (40-80); PLATELET COUNT 120 10x3/uL (130-400); RBC 3.55 10x6/uL (4.20-6.10); RDW 13.1 % (11.5-14.5)
[2019-07-18 07:59] LABS: WBC 4.4 10x3/uL (4.8-10.8)
[2019-07-18 08:07] LABS: CALC OSMOLALITY 269 mosm/kg (275-300); CALCIUM 8.5 mg/dL (8.5-10.1); CHLORIDE - SERUM 103 mmol/L (98-107); CREATININE - SERUM 0.5 mg/dL (0.6-1.3); GLUCOSE 91 mg/dL (74-106); POTASSIUM - SERUM 3.6 mmol/L (3.5-5.1); SODIUM 136 mmol/L (136-145); UREA NITROGEN 8 mg/dL (7-18); eGFR NON AFRICAN AMERICAN > 90 mL/min (90-120)
[2019-07-18 08:38] VITALS: BP 123/94
--- NOTE | 2019-07-18 09:28 | NUR ---
RESTING IN BED, HAND FED THIS AM, IV INFUSING PER PORT, NO DISTRESS NOTED, COUGHING UP THICK SPUTUM
[2019-07-18 11:54] LABS: INR 1.11 (0.85-1.17); PROTIME 14.2 SECONDS (11.6-15.0)
[2019-07-18 12:33] VITALS: BP 124/60
[2019-07-18 17:07] VITALS: BP 115/84
[2019-07-18 19:01] VITALS: Ht 162.6 cm; Wt 49.9 kg
--- NOTE | 2019-07-18 19:30 | NUR ---
PATIENT LYING IN BED. ALERT AND ORIENTED, BEDFAST. NO ACUTE DISTRESS NOTED AT THIS TIME. RIGHT CHEST PORT W/ NS @ 75, DRESSING IN PLACE. PATIENT HAS NO NEEDS AT THIS TIME. BED IN LOW POSITION, RAILS X2. BEDSIDE TABLE AND CALL LIGHT WITHIN REACH.
[2019-07-18 19:52] VITALS: BP 118/61
[2019-07-19] VITALS: BP 129/79
[2019-07-19 04:00] VITALS: BP 141/96
[2019-07-19 04:47] LABS: BASOPHILS 0.3 % (0-2); EOSINOPHILS 2.8 % (0-7); HEMATOCRIT 34.9 % (42.0-54.0); HEMOGLOBIN 11.9 g/dL (13.5-17.5); LYMPHOCYTES 41.8 % (15-50); MCH 33.4 pg (26.0-34.0); MCHC 34.1 g/dL (31.0-37.0); MEAN PLATELET VOLUME 11.6 fL (7.4-10.4); MONOCYTES 19.1 % (2-11); PLATELET COUNT 127 10x3/uL (130-400); RBC 3.56 10x6/uL (4.20-6.10); RDW 12.8 % (11.5-14.5); WBC 3.9 10x3/uL (4.8-10.8)
[2019-07-19 05:23] LABS: CALC OSMOLALITY 272 mosm/kg (275-300); CALCIUM 8.3 mg/dL (8.5-10.1); CHLORIDE - SERUM 106 mmol/L (98-107); CREATININE - SERUM 0.6 mg/dL (0.6-1.3); GLUCOSE 83 mg/dL (74-106); MAGNESIUM - SERUM 1.7 mg/dL (1.8-2.4); PHOSPHOROUS 2.7 mg/dL (2.5-4.9); POTASSIUM - SERUM 3.8 mmol/L (3.5-5.1); SODIUM 138 mmol/L (136-145); UREA NITROGEN 8 mg/dL (7-18); eGFR NON AFRICAN AMERICAN > 90 mL/min (90-120)
--- NOTE | 2019-07-19 08:00 | NUR ---
ASSESSMENT PER FLOW SHEET. PATIENT IS WITHOUT DISTRESS.CALL LIGHT IN REACH.
[2019-07-19 08:56] VITALS: BP 132/63
[2019-07-19 13:24] VITALS: BP 138/89
--- NOTE | 2019-07-19 16:21 | NUR ---
PT HAS A STAGE 3 PRESSURE INJURY ON HIS SACRUM. IT MEASURES 2CM X 1.5CM X 1CM THERE IS NO ODOR AND HAS SMALL AMOUNT OF BLOODY DRAINAGE. PT HAS A LONG HISTORY OF PRESSURE INJURIES DUE TO BEING BED/WHEELCHAIR BOUND. RECOMMENDED WET TO DRY DRESSINGS USING DAKINS SOLUTION. WOUND CARE WILL CONTINUE MONITORING.
[2019-07-19 17:28] VITALS: BP 163/59
--- NOTE | 2019-07-19 19:15 | NUR ---
PATIENT LYING IN BED. ALERT AND ORIENTED. NO SIGNS OF ACUTE DISTRESS NOTED AT THIS TIME. PATIENT REQUESTS PAIN MEDICINE WHEN ITS DUE FOR 910 PAIN. BED IN LOW POSITION, RAILS X2. BEDSIDE TABLE AND CALL LIGHT WITHIN REACH.
[2019-07-19 20:00] VITALS: BP 140/80
[2019-07-20 04:00] VITALS: BP 144/102
[2019-07-20 04:17] LABS: BASOPHILS 0.3 % (0-2); EOSINOPHILS 3.7 % (0-7); HEMATOCRIT 35.3 % (42.0-54.0); HEMOGLOBIN 12.2 g/dL (13.5-17.5); LYMPHOCYTES 45.7 % (15-50); MCH 33.5 pg (26.0-34.0); MCHC 34.6 g/dL (31.0-37.0); MEAN PLATELET VOLUME 10.4 fL (7.4-10.4); MONOCYTES 19.2 % (2-11); NEUTROPHILS 31.1 % (40-80); PLATELET COUNT 139 10x3/uL (130-400); RBC 3.64 10x6/uL (4.20-6.10); RDW 12.5 % (11.5-14.5); WBC 3.8 10x3/uL (4.8-10.8)
[2019-07-20 04:42] LABS: CALC OSMOLALITY 275 mosm/kg (275-300); CALCIUM 8.5 mg/dL (8.5-10.1); CARBON DIOXIDE 27.7 mmol/L (21.0-32.0); CHLORIDE - SERUM 105 mmol/L (98-107); CREATININE - SERUM 0.5 mg/dL (0.6-1.3); GLUCOSE 86 mg/dL (74-106); POTASSIUM - SERUM 3.7 mmol/L (3.5-5.1); SODIUM 140 mmol/L (136-145); UREA NITROGEN 6 mg/dL (7-18); eGFR NON AFRICAN AMERICAN > 90 mL/min (90-120)
--- NOTE | 2019-07-20 07:49 | NUR ---
ALERT AND ORIENTED. LUNGS DIMINISHED BILATERALLY. HEART SOUNDS S1 AND S2 HEARD IN ALL BOX. BOWEL SOUNDS ACTIVE X 4. QUADRAPALEGIC. STAGE 2 PU TO BUTTOCKS AND COCCYX. DRSGS C/D/I. WILL CHANGE TODAY. RIGHT CHEST PORT PATENT WITHOUT REDNESS. DENIES NEEDS. BED LOW. CALL STRINGER AND PERSONAL ITEMS IN REACH. WILL CONTINUE TO MONITOR.
[2019-07-20 10:07] VITALS: BP 138/95
[2019-07-20] MEDS ORDERED: LEVAQUIN750 MG PO (12:56)
[2019-07-20] MEDS ORDERED: CLARITIN 10 MG10 MG PO (12:59)
[2019-07-20] MEDS ORDERED: MUCINEX600 MG PO (12:59)
[2019-07-20] MEDS ORDERED: ROBITUSSIN DM 110 ML PO (12:59)
[2019-07-20] MEDS ORDERED: TESSALON PERLE100 MG PO (12:59)
[2019-07-20] MEDS ORDERED: MACROBID100 MG PO (13:04)
--- NOTE | 2019-07-20 13:06 | MORECARE ---
CASE MANAGEMENT DISCHARGE SUMMARY PATIENT: JACLYN RODRIGUEZ UNIT: [id number] ADM DATE: 07/17/19 AGE: 34 : 81 SEX: M ROOM/BED: D.2216 AUTHOR: DIONNE EASTON PHYSICIAN: REFERRING PHYSICIAN: MARGRET CHERY MD DATE OF SERVICE: 07/20/19 Discharge Plan Patient Name: JALCYN RODRIGUEZ [facility] [facility] 1985 Planned Disposition: Home Anticipated Discharge Date: Discharge Date: Expected LOS: Initial Reviewer: [email or web address] Initial Review Date: 07/17/2019 Generated: 07/20/19 2:06 pm Last DP export: 07/17/19 8:25 am Patient Name: JACLYN RODRIGUEZ Page 39712 at 1306 All edits/amendments must be made on the electronic document DICTATION DATE: 07/20/19 1306 BAG LOADER: TERENCE 07/20/19 1306 RPT#: [id number] DC DATE: STATUS: ADM IN [facility] [address] [place] [address] END OF REPORT
--- NOTE | 2019-07-20 13:14 | MORECARE ---
CASE MANAGEMENT DISCHARGE SUMMARY PATIENT: JACLYN RODRIGUEZ UNIT: [id number] ADM DATE: 07/17/19 AGE: 34 : 81 SEX: M ROOM/BED: D.2216 AUTHOR: DIONNE EASTON PHYSICIAN: REFERRING PHYSICIAN: MARGRET CHERY MD DATE OF SERVICE: 07/20/19 Discharge Plan Patient Name: JACLYN RODRIGUEZ [facility] [facility] 1985 Planned Disposition: Home Anticipated Discharge Date: Discharge Date: Expected LOS: Initial Reviewer: [email or web address] Initial Review Date: 07/17/2019 Generated: 07/20/19 2:13 pm DCPIA - Discharge Planning Initial Assessment Updated by [email or web address]: Ivonne Guo on 07/20/19 1:12 pm * Is the patient Alert and Oriented? Yes * PCP DR PAMELA GUNTER IN [place] * Pharmacy [facility] * Preadmission Environment Home with Family * ADLs Independent * Equipment Catheter Supplies Ostomy Supplies Power Chair or Electric Scooter Walker * Other Equipment ELECTRIC WHEELCHAIR WAS STOLLEN * List name and contact numbers for known caregivers / representatives who currently or will assist patient after discharge: INDIA RODRIGUEZ (AUNT)[phone] * Verbal permission to speak to the caregivers and representatives has been obtained from the patient. N/A * Community resources currently utilized Advantage Program * Please name any agencies selected above. [facility] 8 HRS/DAY 7 DAYS A WEEK * Additional services required to return to the preadmission environment? No * Can the patient safely return to the preadmission environment? Yes * Has this patient been hospitalized within the prior 30 days at any hospital? No Last DP export: 07/20/19 12:06 p Patient Name: JACLYN RODRIGUEZ Page 14784 at 1314 All edits/amendments must be made on the electronic document DICTATION DATE: 07/20/19 1313 GIS SOFTWARE DEVELOPER: TERENCE 07/20/19 1313 RPT#: [id number] DC DATE: STATUS: ADM IN [facility] [address] [place] [address] END OF REPORT
--- NOTE | 2019-07-20 13:22 | MORECARE ---
CASE MANAGEMENT DISCHARGE SUMMARY PATIENT: JACLYN RODRIGUEZ UNIT: [id number] ADM DATE: 07/17/19 AGE: 34 : 81 SEX: M ROOM/BED: D.2216 AUTHOR: RUSTAM,DOC PHYSICIAN: REFERRING PHYSICIAN: MARGRET CHERY MD DATE OF SERVICE: 07/20/19 Discharge Plan Patient Name: JACLYN RODRIGUEZ Facility: [facility]:[place] : 1985 Planned Disposition: Home Anticipated Discharge Date: Discharge Date: Expected LOS: Initial Reviewer: [email or web address] Initial Review Date: 07/17/2019 Generated: 07/20/19 2:21 pm Comments DCP- Discharge Planning Updated by [email or web address]: Ivonne Guo on 07/20/19 12:[address] Patient Name: JACLYN RODRIGUEZ Admission Status: ER Accout number: [id number] Admission Date: 07-17-2019 : 1985 Admission Diagnosis: Attending: GRACIELA CHERY Current LOS: 3 Anticipated DC Date: Planned Disposition: Home Primary Insurance: MEDICAID [place] Discharge Planning Comments: CM met with patient to complete initial dc planning assessment. CM educated patient on the CM role and verbal consent given by patient to complete assessment. Patient lives at home with his aunt where he has [facility] that comes 8 hrs a day 7 days a week. At discharge patient plans to return home and continue those services and feels this is a safe discharge. CM discussed availability of home health, rehab services, and medical equipment. He has a wheelchair at home, he did have an electric wheelchair, but someone took it. He has ostomy supplies and catheter supplies at home. He said that he will need to be transported back home via EMS. Patient complained about not having any output from his colostomy for over 5 days and that he was nauseated, I told Milady VENTURA. Patient denied known discharge needs at this time. CM will continue to follow and will assist as needed with dc plans/needs. Day Camp Counselor: Ivonne Guo DCPIA - Discharge Planning Initial Assessment Updated by [email or web address]: Ivonne Guo on 07/20/19 1:12 pm * Is the patient Alert and Oriented? Yes * PCP DR PAMELA GUNTER IN [place] * Pharmacy [facility] * Preadmission Environment Home with Family * ADLs Independent * Equipment Catheter Supplies Ostomy Supplies Power Chair or Electric Scooter Walker * Other Equipment ELECTRIC WHEELCHAIR WAS STOLLEN * List name and contact numbers for known caregivers / representatives who currently or will assist patient after discharge: INDIA RODRIGUEZ (AUNT)[phone] * Verbal permission to speak to the caregivers and representatives has been obtained from the patient. N/A * Community resources currently utilized Advantage Program * Please name any agencies selected above. [facility] 8 HRS/DAY 7 DAYS A WEEK * Additional services required to return to the preadmission environment? No * Can the patient safely return to the preadmission environment? Yes * Has this patient been hospitalized within the prior 30 days at any hospital? No Last DP export: 07/20/19 12:14 p Patient Name: JACLYN RODRIGUEZ Page 81920 at 1322 All edits/amendments must be made on the electronic document DICTATION DATE: 07/20/19 1322 AERONAUTICAL ENGINEERING OFFICER: TERENCE 07/20/19 1322 RPT#: [id number] DC DATE: STATUS: ADM IN [facility] [address] [place] [address] END OF REPORT
[2019-07-20 14:39] VITALS: BP 113/79
--- NOTE | 2019-07-20 16:01 | NUR ---
RIGHT CHEST PORT DEACCESSED FOR DISCHARGE.
[2019-07-20 17:25] VITALS: BP 139/99
--- NOTE | 2019-07-20 18:26 | NUR ---
RESTING IN BED. DENIES NEEDS. WILL CONTINUE TO MONITOR.
--- NOTE | 2019-07-20 19:50 | NUR ---
PATIENT LYING IN BED. ALERT AND ORIENTED. NO SIGNS OF ACUTE DISTRESS NOTED. PATIENT REQUESTS HIS XANAX AND HIS PAIN MEDS WHEN THEY ARE DUE. CLIENTS PAIN IS AN 8/10. NO FURTHUR NEEDS AT THIS TIME. BED IN LOW POSITION, RAILS X2. BEDSIDE TABLE AND CALL LIGHT WITHIN REACH.
[2019-07-20 21:28] VITALS: BP 153/82
--- NOTE | 2019-07-20 23:10 | NUR ---
TURNED PATIENT ONTO LEFT SIDE. LET AIR OUT OF COLOSTOMY BAG, STILL VERY LITTLE LIQUID COMING OUT OF COLOSTOMY.
[2019-07-21 01:59] VITALS: BP 150/79
[2019-07-21 05:07] LABS: BASOPHILS 0.2 % (0-2); EOSINOPHILS 2.6 % (0-7); HEMATOCRIT 37.8 % (42.0-54.0); HEMOGLOBIN 13.1 g/dL (13.5-17.5); IMMATURE GRANULOCYTES 0.2 % (0-5); LYMPHOCYTES 24.4 % (15-50); MCH 33.6 pg (26.0-34.0); MCHC 34.7 g/dL (31.0-37.0); MCV 96.9 fL (80.0-100.0); MEAN PLATELET VOLUME 10.7 fL (7.4-10.4); MONOCYTES 15.8 % (2-11); NEUTROPHILS 56.8 % (40-80); PLATELET COUNT 156 10x3/uL (130-400); RDW 12.7 % (11.5-14.5); WBC 4.7 10x3/uL (4.8-10.8)
[2019-07-21 05:20] LABS: CALC OSMOLALITY 275 mosm/kg (275-300); CALCIUM 9.3 mg/dL (8.5-10.1); CARBON DIOXIDE 25.2 mmol/L (21.0-32.0); CHLORIDE - SERUM 105 mmol/L (98-107); CREATININE - SERUM 0.6 mg/dL (0.6-1.3); GLUCOSE 85 mg/dL (74-106); POTASSIUM - SERUM 3.7 mmol/L (3.5-5.1); SODIUM 140 mmol/L (136-145); UREA NITROGEN 7 mg/dL (7-18); eGFR NON AFRICAN AMERICAN > 90 mL/min (90-120)
[2019-07-21 06:04] VITALS: BP 125/87
--- NOTE | 2019-07-21 07:38 | NUR ---
ALERT AND ORIENTED. LUNGS DIMINISHED BILATERALLY. HEART SOUNDS S1 AND S2 HEARD IN ALL BOX. BOWEL SOUNDS ACTIVE X 4. DRSG TO COCCYX C/D/I. HEALS IN SOFT BOOTIES. RIGHT CHEST PORT NOT ACCESSED. DENIES NEEDS. BED LOW. CALL STRINGER AND PERSONAL ITEMS IN REACH. WILL CONTINUE TO MONITOR.
[2019-07-21 08:00] VITALS: BP 104/70
--- NOTE | 2019-07-21 10:00 | NUR ---
DRSG CHANGED TO COCCYX PER ORDER.
[2019-07-21 12:00] VITALS: BP 103/66
--- NOTE | 2019-07-21 14:13 | NUR ---
RESTING IN BED. DENIES NEEDS. WILL CONTINUE TO MNITOR.
[2019-07-21] MEDS ORDERED: OMNICEF300 MG PO (15:30)
--- NOTE | 2019-07-21 15:52 | MORECARE ---
CASE MANAGEMENT DISCHARGE SUMMARY PATIENT: JACLYN RODRIGUEZ UNIT: [id number] ADM DATE: 07/17/19 AGE: 34 : 81 SEX: M ROOM/BED: D.2216 AUTHOR: RUSTAM,DOC PHYSICIAN: REFERRING PHYSICIAN: MARGRET CHERY MD DATE OF SERVICE: 07/21/19 Discharge Plan Patient Name: JACLYN RODRIGUEZ Facility: [facility]:[place] : 1985 Planned Disposition: Home Anticipated Discharge Date: Discharge Date: Expected LOS: Initial Reviewer: [email or web address] Initial Review Date: 07/17/2019 Generated: 07/21/19 4:51 pm Comments DCP- Discharge Planning Updated by [email or web address]: Ivonne Guo on 07/21/19 2:[address] SPOKE TO PATIENT AGAIN TODAY ABOUT HOME HEALTH AND WOUND CARE. HE SAID HE HAS EVERYTHING ALREADY AND HIS HOME CARE COMPANY DOES THAT AND HE DOES NOT NEED ANYONE ELSE. I ASKED HIM IF HE WANTED [facility] AGAIN AND HE SAID THAT EVERYTHING IS SET UP WITH HIS [facility]. HE WILL BE DISCHARGING HOME TO HIS AUNTS HOME WHERE HE LIVES VIA EMS DCP- Discharge Planning Updated by [email or web address]: Ivonne Guo on 07/20/19 12:[address] Patient Name: JACLYN RODRIGUEZ Admission Status: ER Accout number: [id number] Admission Date: 07-17-2019 : 1985 Admission Diagnosis: Attending: GRACIELA CHERY Current LOS: 3 Anticipated DC Date: Planned Disposition: Home Primary Insurance: MEDICAID [place] Discharge Planning Comments: CM met with patient to complete initial dc planning assessment. CM educated patient on the CM role and verbal consent given by patient to complete assessment. Patient lives at home with his aunt where he has [facility] that comes 8 hrs a day 7 days a week. At discharge patient plans to return home and continue those services and feels this is a safe discharge. CM discussed availability of home health, rehab services, and medical equipment. He has a wheelchair at home, he did have an electric wheelchair, but someone took it. He has ostomy supplies and catheter supplies at home. He said that he will need to be transported back home via EMS. Patient complained about not having any output from his colostomy for over 5 days and that he was nauseated, I told Milady VENTURA. Patient denied known discharge needs at this time. CM will continue to follow and will assist as needed with dc plans/needs. Top Frame Maker: Ivonne Guo DCPIA - Discharge Planning Initial Assessment Updated by [email or web address]: Ivonne Guo on 07/20/19 1:12 pm * Is the patient Alert and Oriented? Yes * PCP DR PAMELA GUNTER IN [place] * Pharmacy [facility] * Preadmission Environment Home with Family * ADLs Independent * Equipment Catheter Supplies Ostomy Supplies Power Chair or Electric Scooter Walker * Other Equipment ELECTRIC WHEELCHAIR WAS STOLLEN * List name and contact numbers for known caregivers / representatives who currently or will assist patient after discharge: INDIA RODRIGUEZ (AUNT)[phone] * Verbal permission to speak to the caregivers and representatives has been obtained from the patient. N/A * Community resources currently utilized Advantage Program * Please name any agencies selected above. [facility] 8 HRS/DAY 7 DAYS A WEEK * Additional services required to return to the preadmission environment? No * Can the patient safely return to the preadmission environment? Yes * Has this patient been hospitalized within the prior 30 days at any hospital? No Last DP export: 07/20/19 12:22 p Patient Name: JACLYN RODRIGUEZ Page 29281 at 1552 All edits/amendments must be made on the electronic document DICTATION DATE: 07/21/191550 MAINFRAME DEVELOPER: TERENCE 07/21/191550 RPT#: [id number] DC DATE: STATUS: ADM IN [facility] [address] [place] [address] END OF REPORT
--- NOTE | 2019-07-21 16:53 | NUR ---
DISCHARGE EDUCATION PROVIDED BOTH WRITTEN AND VERBAL. VERBALIZED UNDERSTANDING. DENIES FURTHER QUESTIONS. BELONGINGS PACKED TO GO HOME. DENIES FURTHER NEEDS. SUPPLIES SENT WITH PATIENT FOR DRSG CHANGES. NO IV. DC PAPERWORK SIGNED WITH PATIENT BY TWO NURSES D/T PATIENT BEING QUADRAPALEGIC. WAITING AMBULANCE.
--- NOTE | 2019-07-21 18:15 | NUR ---
PATIENT DC HOME WITH ALL BELONGINGS.
--- NOTE | 2019-07-24 09:50 | MORECARE ---
CASE MANAGEMENT DISCHARGE SUMMARY PATIENT: JACLYN RODRIGUEZ UNIT: [id number] ADM DATE: 07/17/19 AGE: 34 : 81 SEX: M ROOM/BED: D.2216 AUTHOR: RUSTAM,DOC PHYSICIAN: REFERRING PHYSICIAN: MARGRET CHERY MD DATE OF SERVICE: 07/24/19 Discharge Plan Patient Name: JACLYN RODRIGUEZ Facility: [facility]:[place] : 1985 Planned Disposition: Home Anticipated Discharge Date: Discharge Date: 07/21/2019 Expected LOS: Initial Reviewer: [email or web address] Initial Review Date: 07/17/2019 Generated: 07/24/19 10:50 am Comments DCP- Discharge Planning Updated by [email or web address]: Ivonne Guo on 07/21/19 2:[address] SPOKE TO PATIENT AGAIN TODAY ABOUT HOME HEALTH AND WOUND CARE. HE SAID HE HAS EVERYTHING ALREADY AND HIS HOME CARE COMPANY DOES THAT AND HE DOES NOT NEED ANYONE ELSE. I ASKED HIM IF HE WANTED [facility] AGAIN AND HE SAID THAT EVERYTHING IS SET UP WITH HIS [facility]. HE WILL BE DISCHARGING HOME TO HIS AUNTS HOME WHERE HE LIVES VIA EMS DCP- Discharge Planning Updated by [email or web address]: Ivonne Guo on 07/20/19 12:[address] Patient Name: JACLYN RODRIGUEZ Admission Status: ER Accout number: [id number] Admission Date: 07-17-2019 : 1985 Admission Diagnosis: Attending: GRACIELA CHERY Current LOS: 3 Anticipated DC Date: Planned Disposition: Home Primary Insurance: MEDICAID [place] Discharge Planning Comments: CM met with patient to complete initial dc planning assessment. CM educated patient on the CM role and verbal consent given by patient to complete assessment. Patient lives at home with his aunt where he has [facility] that comes 8 hrs a day 7 days a week. At discharge patient plans to return home and continue those services and feels this is a safe discharge. CM discussed availability of home health, rehab services, and medical equipment. He has a wheelchair at home, he did have an electric wheelchair, but someone took it. He has ostomy supplies and catheter supplies at home. He said that he will need to be transported back home via EMS. Patient complained about not having any output from his colostomy for over 5 days and that he was nauseated, I told Milady VENTURA. Patient denied known discharge needs at this time. CM will continue to follow and will assist as needed with dc plans/needs. Heat Reader: Ivonne Guo DCPIA - Discharge Planning Initial Assessment Updated by [email or web address]: Ivonne Guo on 07/20/19 1:12 pm * Is the patient Alert and Oriented? Yes * PCP DR PAMELA GUNTER IN [place] * Pharmacy [facility] * Preadmission Environment Home with Family * ADLs Independent * Equipment Catheter Supplies Ostomy Supplies Power Chair or Electric Scooter Walker * Other Equipment ELECTRIC WHEELCHAIR WAS STOLLEN * List name and contact numbers for known caregivers / representatives who currently or will assist patient after discharge: INDIA RODRIGUEZ (AUNT)[phone] * Verbal permission to speak to the caregivers and representatives has been obtained from the patient. N/A * Community resources currently utilized Advantage Program * Please name any agencies selected above. [facility] 8 HRS/DAY 7 DAYS A WEEK * Additional services required to return to the preadmission environment? No * Can the patient safely return to the preadmission environment? Yes * Has this patient been hospitalized within the prior 30 days at any hospital? No Last DP export: 07/21/19 2:52 p Patient Name: JACLYN RODRIGUEZ Page 09022 at 0950 All edits/amendments must be made on the electronic document DICTATION DATE: 07/24/19949 BUTADIENE CONVERTER UTILITY OPERATOR: TERENCE 07/24/1950 RPT#: [id number] DC DATE:07/21/19 STATUS: DIS IN [facility] [address] [place] [address] END OF REPORT
== END 2019-07-21 18:26 | disposition home or self-care (01) | DRG 177 ==
LOC: D.ER 07:59 → D.MS 09:15
PROVIDERS: Emergency Medicine; ADMIT Emergency Medicine; ATTEND Emergency Medicine
DX: J69.0 Pneumonitis due to inhalation of food and vomit (principal); G82.52 Quadriplegia, C1-C4 incomplete; L89.153 Pressure ulcer of sacral region, stage 3; N39.0 Urinary tract infection, site not specified; Z68.1 Body mass index [BMI] 19.9 or less, adult; L89.306 Pressure-induced deep tissue damage of unspecified buttock; J44.9 Chronic obstructive pulmonary disease, unspecified; K59.03 Drug induced constipation; D69.6 Thrombocytopenia, unspecified

== ENCOUNTER 2019-11-28 23:01 | Emergency (ER) | payer MEDICAID ==
[~2019-11-28] VITALS: Ht 162.6 cm; Wt 40.8 kg
[~2019-11-28 23:01] MED LIST changes: +CLARITIN 10 MG10 MG PO; +LEVAQUIN750 MG PO; +MACROBID100 MG PO; +OMNICEF300 MG PO; +ROBITUSSIN DM 110 ML PO
[2019-11-28 23:02] VITALS: Ht 162.6 cm; Wt 40.8 kg
[2019-11-28 23:37] LABS: HEMATOCRIT 36.6 % (42.0-54.0); HEMOGLOBIN 12.4 g/dL (13.5-17.5); LYMPHOCYTES 30.2 % (15-50); MCH 33.2 pg (26.0-34.0); MCHC 33.9 g/dL (31.0-37.0); MCV 98.1 fL (80.0-100.0); MEAN PLATELET VOLUME 10.8 fL (7.4-10.4); NEUTROPHILS 54.2 % (40-80); PLATELET COUNT 127 10x3/uL (130-400); RBC 3.73 10x6/uL (4.20-6.10); RDW 12.6 % (11.5-14.5); WBC 5.8 10x3/uL (4.8-10.8)
[2019-11-28 23:52] LABS: CALC OSMOLALITY 278 mosm/kg (275-300); CALCIUM 7.9 mg/dL (8.5-10.1); CARBON DIOXIDE 27.7 mmol/L (21.0-32.0); CHLORIDE - SERUM 105 mmol/L (98-107); CREATININE - SERUM 0.7 mg/dL (0.6-1.3); GLUCOSE 118 mg/dL (74-106); POTASSIUM - SERUM 3.2 mmol/L (3.5-5.1); SODIUM 140 mmol/L (136-145); UREA NITROGEN 10 mg/dL (7-18); eGFR NON AFRICAN AMERICAN > 90 mL/min (90-120)
[2019-11-29 00:05] LABS: ALBUMIN 2.9 g/dL (3.4-5.0); ALKALINE PHOSPHATASE 88 U/L (30-120); ALT (SGPT) 13 U/L (10-68); BILIRUBIN - TOTAL 0.57 mg/dL (0.2-1.3); LIPASE 60 U/L (73-393); PRO BNP 33 pg/mL (0-125); PROTEIN - SERUM 6.6 g/dL (6.4-8.2)
[2019-11-29 01:43] VITALS: BP 101/58
== END 2019-11-29 01:43 | disposition home or self-care (01) ==
LOC: D.ER 23:01
PROVIDERS: Family Medicine
DX: G82.20 Paraplegia, unspecified (principal); L89.159 Pressure ulcer of sacral region, unspecified stage

== ENCOUNTER 2020-02-06 23:46 | Emergency (ER) | payer MEDICAID ==
[~2020-02-06] VITALS: Ht 162.6 cm; Wt 54.4 kg
[2020-02-06 23:54] VITALS: Ht 162.6 cm; Wt 54.4 kg
[2020-02-07 00:46] LABS: BASOPHILS 0.2 % (0-2); EOSINOPHILS 2.4 % (0-7); HEMATOCRIT 39.1 % (42.0-54.0); LYMPHOCYTES 34.1 % (15-50); MCH 32.2 pg (26.0-34.0); MCHC 33.2 g/dL (31.0-37.0); MCV 96.8 fL (80.0-100.0); MEAN PLATELET VOLUME 10.3 fL (7.4-10.4); MONOCYTES 15.1 % (2-11); NEUTROPHILS 48.2 % (40-80); PLATELET COUNT 125 10x3/uL (130-400); RBC 4.04 10x6/uL (4.20-6.10); WBC 4.6 10x3/uL (4.8-10.8)
[2020-02-07 00:59] LABS: APTT 33.8 SECONDS (22.8-39.4); INR 1.21 (0.85-1.17); PROTIME 15.3 SECONDS (11.6-15.0)
[2020-02-07 01:01] LABS: CALC OSMOLALITY 278 mosm/kg (275-300); CALCIUM 8.3 mg/dL (8.5-10.1); CARBON DIOXIDE 27.8 mmol/L (21.0-32.0); CHLORIDE - SERUM 107 mmol/L (98-107); CREATININE - SERUM 0.6 mg/dL (0.6-1.3); GLUCOSE 98 mg/dL (74-106); SODIUM 140 mmol/L (136-145); UREA NITROGEN 12 mg/dL (7-18); eGFR NON AFRICAN AMERICAN > 90 mL/min (90-120)
[2020-02-07 01:12] LABS: ALBUMIN 3.1 g/dL (3.4-5.0); ALKALINE PHOSPHATASE 90 U/L (30-120); ALT (SGPT) 12 U/L (10-68); BILIRUBIN - TOTAL 0.59 mg/dL (0.2-1.3); CREATINE KINASE 52 UL (21-232); MAGNESIUM - SERUM 1.6 mg/dL (1.8-2.4); PROTEIN - SERUM 6.7 g/dL (6.4-8.2); TROPONIN-I < 0.017 ng/mL (0.000-0.060)
[2020-02-07 02:11] LABS: UDS - AMPHET NEGATIVE QUAL (NEGATIVE); UDS - BARB NEGATIVE QUAL (NEGATIVE); UDS - BENZO POSITIVE QUAL (NEGATIVE); UDS - COCAINE NEGATIVE QUAL (NEGATIVE); UDS - OPIATE POSITIVE QUAL (NEGATIVE); UDS - PCP NEGATIVE QUAL (NEGATIVE); UDS - THC POSITIVE QUAL (NEGATIVE)
[2020-02-07 02:13] LABS: BILIRUBIN NEGATIVE (NEGATIVE); KETONE NEGATIVE (NEGATIVE); NITRITE POSITIVE (NEGATIVE); UROBILINOGEN NORMAL mg/dL (< 2)
[2020-02-07 02:14] LABS: BACTERIA MODERATE HPF (NONE SEEN); EPITHELIAL CELLS 0-5 /hpf (0-5); WHITE CELLS - URINE 0-5 HPF (0-1)
[2020-02-07] MEDS ORDERED: MACROBID100 MG PO (02:48)
[2020-02-07] MEDS ORDERED: CLEOCIN HCL300 MG PO (02:48)
[2020-02-07 03:24] VITALS: BP 112/61
== END 2020-02-07 03:25 | disposition home or self-care (01) ==
LOC: D.ER 23:46
PROVIDERS: Family Medicine
DX: N39.0 Urinary tract infection, site not specified (principal); K04.7 Periapical abscess without sinus; R42 Dizziness and giddiness; R53.1 Weakness; R50.9 Fever, unspecified

== ENCOUNTER 2020-07-08 23:57 | Emergency (ER) | payer MEDICAID ==
[~2020-07-08] VITALS: Ht 162.6 cm; Wt 48.6 kg
[~2020-07-08 23:57] MED LIST changes: +CLEOCIN HCL300 MG PO
[2020-07-09 00:18] VITALS: Ht 162.6 cm; Wt 48.6 kg
[2020-07-09 01:36] LABS: BASOPHILS 0.2 % (0-2); EOSINOPHILS 1.9 % (0-7); HEMATOCRIT 40.3 % (42.0-54.0); IMMATURE GRANULOCYTES 0.3 % (0-5); LYMPHOCYTE ABS# 2.04 10x3/uL (1.32-3.57); LYMPHOCYTES 35.5 % (15-50); MCH 33.8 pg (26.0-34.0); MCHC 34.7 g/dL (31.0-37.0); MCV 97.3 fL (80.0-100.0); MONOCYTES 11.7 % (2-11); NEUTROPHILS 50.4 % (40-80); PLATELET COUNT 144 10x3/uL (130-400); RBC 4.14 10x6/uL (4.20-6.10); RDW 12.5 % (11.5-14.5); WBC 5.8 10x3/uL (4.8-10.8)
[2020-07-09 02:09] LABS: CALC OSMOLALITY 276 mosm/kg (275-300); CALCIUM 9.1 mg/dL (8.5-10.1); CARBON DIOXIDE 30.8 mmol/L (21.0-32.0); CHLORIDE - SERUM 106 mmol/L (98-107); CREATININE - SERUM 0.5 mg/dL (0.6-1.3); GLUCOSE 98 mg/dL (74-106); POTASSIUM - SERUM 3.7 mmol/L (3.5-5.1); SODIUM 139 mmol/L (136-145); UREA NITROGEN 10 mg/dL (7-18); eGFR NON AFRICAN AMERICAN > 90 mL/min (90-120)
[2020-07-09 02:25] LABS: ALBUMIN 3.4 g/dL (3.4-5.0); ALKALINE PHOSPHATASE 85 U/L (30-120); ALT (SGPT) 17 U/L (10-68); BILIRUBIN - TOTAL 0.75 mg/dL (0.2-1.3); CKMB 0.5 U/L (0.0-3.6); CREATINE KINASE 85 UL (21-232); PROTEIN - SERUM 7.1 g/dL (6.4-8.2); TROPONIN-I < 0.017 ng/mL (0.000-0.060)
[2020-07-09 03:21] VITALS: BP 90/57
== END 2020-07-09 04:08 | disposition home or self-care (01) ==
LOC: D.ER 23:57
PROVIDERS: Family Medicine
DX: F41.8 Other specified anxiety disorders (principal); R07.9 Chest pain, unspecified

== ENCOUNTER 2020-07-12 23:15 | Emergency (ER) | payer MEDICAID ==
[~2020-07-12] VITALS: Ht 162.6 cm; Wt 54.5 kg
[2020-07-12 23:16] VITALS: Ht 162.6 cm; Wt 54.5 kg
[2020-07-12] MEDS ORDERED: SEROQUEL25 MG PO (23:58)
[2020-07-13 01:00] VITALS: BP 119/71
== END 2020-07-13 01:00 | disposition home or self-care (01) ==
LOC: D.ER 23:15
DX: F29 Unspecified psychosis not due to a substance or known physiological condition (principal); G82.50 Quadriplegia, unspecified; R44.1 Visual hallucinations; R44.0 Auditory hallucinations

== ENCOUNTER 2020-07-13 03:09 | Inpatient (IN) | payer MEDICAID ==
[~2020-07-13] VITALS: Ht 162.6 cm; Wt 54.4 kg
[~2020-07-13 03:09] MED LIST changes: +SEROQUEL25 MG PO
[2020-07-13 04:05] LABS: BASOPHILS 0.2 % (0-2); EOSINOPHILS 2.9 % (0-7); HEMATOCRIT 39.3 % (42.0-54.0); HEMOGLOBIN 13.2 g/dL (13.5-17.5); IMMATURE GRANULOCYTES 0.2 % (0-5); LYMPHOCYTE ABS# 1.51 10x3/uL (1.32-3.57); LYMPHOCYTES 29.5 % (15-50); MCH 33.2 pg (26.0-34.0); MCHC 33.6 g/dL (31.0-37.0); MCV 98.7 fL (80.0-100.0); MEAN PLATELET VOLUME 11.1 fL (7.4-10.4); MONOCYTES 14.7 % (2-11); NEUTROPHIL ABS# 2.68 10x3/uL (1.78-5.38); NEUTROPHILS 52.5 % (40-80); PLATELET COUNT 141 10x3/uL (130-400); RBC 3.98 10x6/uL (4.20-6.10); RDW 12.8 % (11.5-14.5); WBC 5.1 10x3/uL (4.8-10.8)
[2020-07-13 04:17] LABS: CALC OSMOLALITY 280 mosm/kg (275-300); CALCIUM 8.7 mg/dL (8.5-10.1); CHLORIDE - SERUM 107 mmol/L (98-107); CREATININE - SERUM 0.6 mg/dL (0.6-1.3); GLUCOSE 85 mg/dL (74-106); POTASSIUM - SERUM 4.3 mmol/L (3.5-5.1); SODIUM 141 mmol/L (136-145); UREA NITROGEN 14 mg/dL (7-18); eGFR NON AFRICAN AMERICAN > 90 mL/min (90-120)
[2020-07-13 04:40] LABS: ALBUMIN 3.2 g/dL (3.4-5.0); ALKALINE PHOSPHATASE 87 U/L (30-120); ALT (SGPT) 16 U/L (10-68); BILIRUBIN - TOTAL 0.53 mg/dL (0.2-1.3); CREATINE KINASE 218 UL (21-232); LIPASE 72 U/L (73-393); PRO BNP 25 pg/mL (0-125); PROTEIN - SERUM 6.9 g/dL (6.4-8.2); THYROID STIMULATING HORMONE 1.15 uIU/mL (0.36-3.74)
[2020-07-13 06:33] LABS: ERYTHROCYTE SEDIMENTATION RATE 12 mm/hr (0-15)
[2020-07-13 07:26] VITALS: BP 115/64; BMI 20.6
--- NOTE | 2020-07-13 07:32 | NUR ---
PATIENT ADMITTED TO ROOM 2229. ADMISSION COMPLETE. REQUESTING PAIN MEDICATION. WILL CALL MD. DENIES FURTHER NEEDS. BED LOW. CALL STRINGER AND PERSONAL ITEMS IN REACH. WILL CALL FOR DIFFERENT CALL LIGHT D/T FUNCTIONAL QUADRAPALEGIC. WILL CONTINUE TO MONITOR.
--- NOTE | 2020-07-13 08:13 | NUR ---
WORK ORDER PLACED FOR BLOW CALL LIGHT. SCDS PLACED ON PATIENT. EDUCATION PROVIDED.
--- NOTE | 2020-07-13 08:51 | NUR ---
NEW CALL LIGHT HOOKED UP. NO BLOW CALL LIGHTS AVAILABLE. EASY SQUEEZE CALL LIGHT HOOKED UP AND TESTED BY PATIENT. PATIENT ABLE TO USE.
[2020-07-13 09:00] VITALS: BP 115/64
--- NOTE | 2020-07-13 10:23 | NUR ---
IN AND OUT PERFORMED VIA STERILE PROCEDURE FOR URINE SAMPLE. URINE DARK RED IN COLOR. APPEARS TO BE BLOODY. URINE PREVIOUSLY IN HANSEN CATH BAG DARK YELLOW. ATTEMPTED TO NOTIFY CARPET WEAVER WITH NO ANSWER. CARPET WEAVER PAGED. WAITING CALL BACK.
--- NOTE | 2020-07-13 10:26 | NUR ---
CONDOM CATH REPLACED ON PATIENT. WILL MONITOR TO MAKE SURE IS VOIDED REGULARLY.
--- NOTE | 2020-07-13 10:29 | NUR ---
AUDREY DEL CASTILLO NOTIFIED OF BLOODY VOID VIA IN AND OUT CATH. STATES TO MONITOR PATIENT TODAY TO MAKE SURE IS ABLE TO VOID POST CATH. STATES IF PATIENT CANNOT VOID, WILL NEED HANSEN CATH.
--- NOTE | 2020-07-13 10:55 | NUR ---
LAB STATES URINE SAMPLE IS TOO BLOODY TO USE. WILL NOTIFY RICE FIELD WORKER FOR FURTHER ORDERS.
--- NOTE | 2020-07-13 11:43 | NUR ---
HANSEN PLACED PER ORDER WITH SEASONAL GREENERY BUNDLER IN ROOM. BLOOD TINGED URINE DRAINED THEN YELLOW URINE. NEW SAMPLE TAKEN TO LAB.
[2020-07-13 11:55] LABS: UDS - AMPHET NEGATIVE QUAL (NEGATIVE); UDS - BARB NEGATIVE QUAL (NEGATIVE); UDS - BENZO POSITIVE QUAL (NEGATIVE); UDS - COCAINE NEGATIVE QUAL (NEGATIVE); UDS - OPIATE POSITIVE QUAL (NEGATIVE); UDS - PCP NEGATIVE QUAL (NEGATIVE); UDS - THC POSITIVE QUAL (NEGATIVE)
--- NOTE | 2020-07-13 12:16 | NUR ---
SPOKE WITH BRIANNE IN LAB WHO STATES IS ABLE TO USE NEW URINE SAMPLE. WILL CONTINUE TO MONITOR PATIENT'S URINE OUTPUT THROUGHOUT DAY.
[2020-07-13 13:11] LABS: BILIRUBIN NEGATIVE (NEGATIVE); KETONE NEGATIVE (NEGATIVE); NITRITE NEGATIVE (NEGATIVE); SQUAMOUS EPITHELIAL OCC HPF (0-4); UROBILINOGEN 4 mg/dL (< 2); WHITE CELLS - URINE OCC HPF (0-1)
[2020-07-13 13:17] VITALS: BP 112/71
--- NOTE | 2020-07-13 16:06 | NUR ---
PATIENT STATES CAN HEAR VOICES IN HIS HEAD THAT "WON'T LEAVE HIM ALONE." WHEN ASKED WHAT THE VOICES WERE SAYING PATIENT RESPONDED "ALL KINDS OF THINGS. BAD THINGS. LIKE THEY'RE GOING TO HURT ME. LIKE THEY'RE GOING TO KILL ME." PATIENT TEARY IN ROOM. ENVIRONMENTAL HEALTH OFFICER MADE AWARE.
[2020-07-13 16:09] VITALS: BP 110/67
--- NOTE | 2020-07-13 16:33 | NUR ---
OT NOTE: PT REQUIRED TOTAL A FOR POSITONING. PT/TAPIA DISCUSSED AE NEEDS. PT DEMONSTRATED LIMITED RUE AROM IN ORDER TO USE CELL PHONE. [id number] THANK YOU,WILLIE REN
--- NOTE | 2020-07-13 16:49 | NUR ---
BED BATH GIVEN. OLD DRSG REMOVED FROM PRESSURE ULCER TO BUTTOCKS AND NEW SACRAL MEPILEX APPLIED.
[2020-07-13 20:00] VITALS: BP 102/57
--- NOTE | 2020-07-13 20:00 | NUR ---
ALERT RESTING IN BED DENIES PAIN REGUESTING SLEEP MEDS SCHEDULED MEDS GIVEN ORDERED, HANSEN DRAINING YELLOW URINE, SEE SHIFT ASSESSMENT, CALLIGHT IN REACH
[2020-07-14] VITALS: BP 129/74
[2020-07-14 04:00] VITALS: BP 163/109
[2020-07-14 05:38] LABS: BASOPHILS 0.2 % (0-2); EOSINOPHILS 1.6 % (0-7); HEMOGLOBIN 11.8 g/dL (13.5-17.5); IMMATURE GRANULOCYTES 0.2 % (0-5); LYMPHOCYTE ABS# 1.22 10x3/uL (1.32-3.57); LYMPHOCYTES 22.1 % (15-50); MCHC 33.7 g/dL (31.0-37.0); MCV 97.8 fL (80.0-100.0); MEAN PLATELET VOLUME 10.8 fL (7.4-10.4); MONOCYTES 15.4 % (2-11); NEUTROPHIL ABS# 3.35 10x3/uL (1.78-5.38); NEUTROPHILS 60.5 % (40-80); PLATELET COUNT 126 10x3/uL (130-400); RBC 3.58 10x6/uL (4.20-6.10); RDW 12.7 % (11.5-14.5); WBC 5.5 10x3/uL (4.8-10.8)
[2020-07-14 06:15] LABS: ALBUMIN 2.9 g/dL (3.4-5.0); ALKALINE PHOSPHATASE 81 U/L (30-120); ALT (SGPT) 11 U/L (10-68); BILIRUBIN - TOTAL 0.72 mg/dL (0.2-1.3); CALC OSMOLALITY 274 mosm/kg (275-300); CALCIUM 8.2 mg/dL (8.5-10.1); CARBON DIOXIDE 25.4 mmol/L (21.0-32.0); CHLORIDE - SERUM 108 mmol/L (98-107); CREATININE - SERUM 0.6 mg/dL (0.6-1.3); GLUCOSE 85 mg/dL (74-106); POTASSIUM - SERUM 3.7 mmol/L (3.5-5.1); PROTEIN - SERUM 6.2 g/dL (6.4-8.2); SODIUM 139 mmol/L (136-145); UREA NITROGEN 6 mg/dL (7-18); eGFR NON AFRICAN AMERICAN > 90 mL/min (90-120)
--- NOTE | 2020-07-14 07:38 | NUR ---
ALERT AND ORIENTED. ASSESSMENT COMPLETE. DENIES NEEDS. BED LOW. CALL STRINGER AND PERSONAL ITEMS IN REACH. WILL CONTINUE TO MONITOR.
[2020-07-14 08:15] VITALS: BP 161/96
--- NOTE | 2020-07-14 09:29 | NUR ---
EGG CRATE TAKEN TO PATIENT'S ROOM AND PLACED ON BED PER ORDER. PATIENT STATES DOES NOT LIKE EGG CRATE AND REFUSING TO KEEP ON BED. EGG CRATE REMOVED.
[2020-07-14 13:27] VITALS: BP 175/90
--- NOTE | 2020-07-14 15:33 | NUR ---
OT NOTE: PT EDUCATED ON AE. PT ATTEMPTED BUILT UP HANDLE WITH RUE. PT LACKED NEEDED CHESS INSTRUCTOR. OT SELECTED AE ITEMS FOR INCREASED I WITH SELF FEEDING WITH RUE. DISCUSSED WITH STAFF. [id number] SHANAE FARR COTA
--- NOTE | 2020-07-14 15:50 | NUR ---
PATIENT REFUSING SUPPOSITORIES. AUDREY DEL CASTILLO NOTIFIED. STATES TO GIVE PACKET OF MIRALAX NOW.
[2020-07-14 16:04] VITALS: Ht 162.6 cm; Wt 54.4 kg
[2020-07-14 17:35] VITALS: BP 133/88
[2020-07-14 20:00] VITALS: BP 105/55
--- NOTE | 2020-07-14 20:45 | NUR ---
AWAKE,ALERT.NO [id number] VOICED AT PRESENT TIME. RESP EVEN AND UNLABORED. NO DISTRESS NOTED. IV TO RAC INTACT WIHTOUT REDNESS OR EDEMA NOTED. CL IN REACH
[2020-07-15 04:38] LABS: BASOPHILS 0.2 % (0-2); HEMATOCRIT 36.3 % (42.0-54.0); HEMOGLOBIN 12.4 g/dL (13.5-17.5); IMMATURE GRANULOCYTES 0.2 % (0-5); LYMPHOCYTE ABS# 1.65 10x3/uL (1.32-3.57); LYMPHOCYTES 34.4 % (15-50); MCHC 34.2 g/dL (31.0-37.0); MCV 96.5 fL (80.0-100.0); MEAN PLATELET VOLUME 10.9 fL (7.4-10.4); NEUTROPHIL ABS# 2.31 10x3/uL (1.78-5.38); NEUTROPHILS 48.2 % (40-80); PLATELET COUNT 140 10x3/uL (130-400); RBC 3.76 10x6/uL (4.20-6.10); RDW 12.5 % (11.5-14.5); WBC 4.8 10x3/uL (4.8-10.8)
[2020-07-15 04:50] LABS: ALKALINE PHOSPHATASE 91 U/L (30-120); BILIRUBIN - TOTAL 1.52 mg/dL (0.2-1.3); CALC OSMOLALITY 270 mosm/kg (275-300); CALCIUM 8.6 mg/dL (8.5-10.1); CHLORIDE - SERUM 104 mmol/L (98-107); CREATININE - SERUM 0.5 mg/dL (0.6-1.3); GLUCOSE 80 mg/dL (74-106); POTASSIUM - SERUM 3.5 mmol/L (3.5-5.1); PROTEIN - SERUM 6.7 g/dL (6.4-8.2); SODIUM 137 mmol/L (136-145); UREA NITROGEN 7 mg/dL (7-18); eGFR NON AFRICAN AMERICAN > 90 mL/min (90-120)
[2020-07-15 04:53] LABS: ALT (SGPT) 14 U/L (10-68)
[2020-07-15 04:59] VITALS: BP 167/110
--- NOTE | 2020-07-15 08:46 | NUR ---
PT AAOX4 UPON ENTERING, ADMINISTERED MEDICAITON, NO DIFFICULTIES. EMPTIED COLOSTOMY BAG. SMALL, ROUND, FORMED BALLS OF STOOL EMPTIED OUT. RESTING COMFORTABLY IN BED. DENIES ANY NEEDS AT THIS TIME. BED IN LOWEST POSITION, BED RAILS X2, CALL LIGHT WITHIN REACH. WILL CONTINUE POC.
[2020-07-15 08:54] VITALS: BP 133/65
--- NOTE | 2020-07-15 10:17 | NUR ---
PRN OXY FOR 9/10 GENERALIZED PAIN. RESTING IN BED, DENIES ANY NEEDS AT THIS TIME. WILL CONTINUE POC.
--- NOTE | 2020-07-15 13:41 | NUR ---
I have reviewed this patient and I concur with the Shift Assessment completed by the Licensed Practical Nurse today this shift.
--- NOTE | 2020-07-15 14:40 | NUR ---
PRN OXY FOR PAIN. FED PATIENT LUNCH. DENIES ANY OTHER NEEDS AT THIS TIME. WILL CONTNIUE POC.
[2020-07-15 14:48] VITALS: BP 134/101
--- NOTE | 2020-07-15 15:19 | NUR ---
ADMINISTERED MEDICATION, NO DIFFICULTIES. RESTING COMFORTABLY. DENIES ANY NEEDS. WILL CONTINUE POC.
--- NOTE | 2020-07-15 16:50 | NUR ---
RESTING COMFORTABLY IN BED. ASSISTED PATIENT WITH GETTING A DRINK. DENIES ANY OTHER NEEDS AT THIS TIME. WILL CONTINUE POC.
[2020-07-15 17:51] VITALS: BP 137/99
--- NOTE | 2020-07-15 18:38 | NUR ---
PRN OXY FOR 9/10 PAIN. NO DIFFICULTIES. RESTING UPRIGHT IN BED. DENEIS ANY NEEDS AT THIS TIME. BED IN LOWEST POSITION, BED RAILS X2, CALL LIGHT WITHIN REACH. WILL CONTINUE POC.
[2020-07-15 20:00] VITALS: BP 151/100
[2020-07-16] VITALS: BP 144/97
[2020-07-16 04:00] VITALS: BP 153/102
--- NOTE | 2020-07-16 04:38 | NUR ---
I have reviewed this patient and I concur with the Shift Assessment completed by the Licensed Practical Nurse today this shift.
[2020-07-16 07:15] LABS: ALKALINE PHOSPHATASE 85 U/L (30-120); ALT (SGPT) 13 U/L (10-68); BILIRUBIN - TOTAL 1.36 mg/dL (0.2-1.3); CALC OSMOLALITY 266 mosm/kg (275-300); CALCIUM 8.8 mg/dL (8.5-10.1); CARBON DIOXIDE 24.5 mmol/L (21.0-32.0); CHLORIDE - SERUM 103 mmol/L (98-107); CREATININE - SERUM 0.4 mg/dL (0.6-1.3); GLUCOSE 77 mg/dL (74-106); POTASSIUM - SERUM 3.7 mmol/L (3.5-5.1); PROTEIN - SERUM 6.7 g/dL (6.4-8.2); SODIUM 135 mmol/L (136-145); UREA NITROGEN 7 mg/dL (7-18); eGFR NON AFRICAN AMERICAN > 90 mL/min (90-120)
[2020-07-16 07:30] LABS: BASOPHILS 0 % (0-2); EOSINOPHILS 1.9 % (0-7); HEMATOCRIT 34.7 % (42.0-54.0); LYMPHOCYTE ABS# 1.81 10x3/uL (1.32-3.57); LYMPHOCYTES 38.4 % (15-50); MCH 33.5 pg (26.0-34.0); MCHC 34.6 g/dL (31.0-37.0); MCV 96.9 fL (80.0-100.0); MEAN PLATELET VOLUME 11.4 fL (7.4-10.4); MONOCYTES 17.4 % (2-11); NEUTROPHIL ABS# 1.99 10x3/uL (1.78-5.38); NEUTROPHILS 42.3 % (40-80); PLATELET COUNT 142 10x3/uL (130-400); RBC 3.58 10x6/uL (4.20-6.10); RDW 12.3 % (11.5-14.5); WBC 4.7 10x3/uL (4.8-10.8)
[2020-07-16 08:18] VITALS: BP 110/87
--- NOTE | 2020-07-16 08:20 | NUR ---
PT RESTING QUIETLY IN BED. RESP EVEN AND UNLABORED. PT DENIES PAIN AT THIS TIME. AM MEDICATIONS ADMINISTERED AT THIS TIME. IV TO RIGHT FOREARM WITH NS @ 50ML/HR INFUSING VIA PUMP. SITE WITHOUT REDNESS OR EDEMA. COLOSTOMY INTACT, MODERATE SIZE FORMED BM NOTED AT THIS TIME. F/C PATENT TO GRAVITY. ASSISTED PT WITH HYDRATION AT THIS TIME. DENIES FURTHER NEEDS AT THIS TIME. CL WITHIN REACH. ENCOURAGED TO CALL WITH NEED. CONTINUE POC
[2020-07-16 15:22] VITALS: BP 127/91
[2020-07-16 18:00] VITALS: BP 132/106
[2020-07-16 20:00] VITALS: BP 156/94
--- NOTE | 2020-07-16 20:15 | NUR ---
WATCHING TV WITH NO COMPLAINTS VOICED. RESP UNALBORED. HANSEN PATENT AND DRAINING.IV TO RAC INTACT WIHTOUT REDNESS OR EDEMA NOTED. CL IN REACH
--- NOTE | 2020-07-16 23:56 | NUR ---
I have reviewed this patient and I concur with the Shift Assessment completed by the Licensed Practical Nurse today this shift.
[2020-07-17 04:00] VITALS: BP 180/104
[2020-07-17 08:29] VITALS: BP 124/92
[2020-07-17 09:24] LABS: BASOPHILS 0.2 % (0-2); EOSINOPHILS 0.7 % (0-7); HEMATOCRIT 34.5 % (42.0-54.0); HEMOGLOBIN 11.9 g/dL (13.5-17.5); LYMPHOCYTE ABS# 0.96 10x3/uL (1.32-3.57); LYMPHOCYTES 22.8 % (15-50); MCH 33.1 pg (26.0-34.0); MCHC 34.5 g/dL (31.0-37.0); MCV 95.8 fL (80.0-100.0); MEAN PLATELET VOLUME 10.6 fL (7.4-10.4); MONOCYTES 14.7 % (2-11); NEUTROPHIL ABS# 2.59 10x3/uL (1.78-5.38); NEUTROPHILS 61.6 % (40-80); PLATELET COUNT 152 10x3/uL (130-400); RDW 12.2 % (11.5-14.5); WBC 4.2 10x3/uL (4.8-10.8)
[2020-07-17 10:03] LABS: ALBUMIN 3.2 g/dL (3.4-5.0); ALKALINE PHOSPHATASE 86 U/L (30-120); ALT (SGPT) 12 U/L (10-68); BILIRUBIN - TOTAL 1.35 mg/dL (0.2-1.3); CALC OSMOLALITY 275 mosm/kg (275-300); CALCIUM 8.7 mg/dL (8.5-10.1); CARBON DIOXIDE 25.8 mmol/L (21.0-32.0); CHLORIDE - SERUM 104 mmol/L (98-107); CREATININE - SERUM 0.4 mg/dL (0.6-1.3); GLUCOSE 95 mg/dL (74-106); POTASSIUM - SERUM 3.6 mmol/L (3.5-5.1); PROTEIN - SERUM 6.5 g/dL (6.4-8.2); SODIUM 139 mmol/L (136-145); UREA NITROGEN 8 mg/dL (7-18); eGFR NON AFRICAN AMERICAN > 90 mL/min (90-120)
[2020-07-17 12:43] VITALS: BP 132/83
--- NOTE | 2020-07-17 13:27 | CN ---
PATIENT NAME:JACLYN RODRIGUEZ MEDICAL RECORD: [id number] : 81 LOCATION:D.MS [id number] ADMIT DATE: 07/13/20 ACCOUNT: [id number] CONSULTING PHYSICIAN: ARIE GIBBS MD REFERRING PHYSICIAN: DORINDA AQUINO MD DATE OF CONSULTATION: 07/13/2020 PSYCHIATRIC CONSULTATION IDENTIFYING DATA: The patient is 35 years old and he is admitted to the hospital secondary to mental status changes. CHIEF COMPLAINT: Hallucinations. HISTORY OF PRESENT ILLNESS: The patient tells me he is having active visual and auditory hallucinations. He is distressed by them, but recognizes that they are not real. ASSESSMENT: Delirium. PLAN: The patient will be started on antipsychotic medication. He has no history of thinking or psychotic disorder and I think a brief round of medications to assist with sleep and thought organization for a few weeks would be reasonable treatment. If the symptoms do not improve, additional mental health followup would be required. TRANSINT:[id number] Voice Confirmation ID: [id number] DOCUMENT ID: [id number] ARIE GIBBS MD at 1327 CC: [id number] DICTATION DATE: 07/13/201755 PANTOGRAPH TRANSFERRER: 07/13/201956 ADM IN [place] [facility] [id number] [place] [address]
[2020-07-17] MEDS ORDERED: GEODON20 MG PO (13:58)
--- NOTE | 2020-07-17 15:45 | MORECARE ---
CASE MANAGEMENT DISCHARGE SUMMARY PATIENT: JACLYN RODRIGUEZ UNIT: [id number] ADM DATE: 07/13/20 AGE: 35 : 81 SEX: M ROOM/BED: D.2229 AUTHOR: RUSTAMDOC PHYSICIAN: REFERRING PHYSICIAN: DORINDA AQUINO MD DATE OF SERVICE: 07/17/20 Discharge Plan Patient Name: JACLY[facility]OD[facility]IGUEZ [facility] [facility] 1985 Planned Disposition: Anticipated Discharge Date: Discharge Date: Expected LOS: Initial Reviewer: [email or web address] Initial Review Date: 07/13/2020 Generated: 07/17/20 4:44 pm Comments DCP- Discharge Planning Updated by [email or web address]: Mariposa Garcia on 07/17/20 2:[address] Patient Name: JACLYN RODRIGUEZ Admission Status: ER Accout number: [id number] Admission Date: 07-13-2020 : 1985 Admission Diagnosis:VISUAL HALLUCINATIONS Attending: DORINDA AQUINO Current LOS: 4 Anticipated DC Date: Planned Disposition: Primary Insurance: MEDICAID [place] Discharge Planning Comments: CM MET WITH PATIENT'S AUNT VIA TELEPHONE AFTER OBTAINING VERBAL CONSENT. DISCUSSED AVAILABILITY/NEEDS OF HOME HEALTH, REHAB, AND MEDICAL EQUIPMENT. SHE STATES THEY HAVE HOME HEALTH WITH [facility]. STATES PATIENT WILL NEED AMBULANCE TRANSPORT TO HOME, HE IS A QUAD. NO OTHER DISCHARGE NEEDS IDENTIFIED. PATIENT TO DC TO HOME TODAY AND HIS AUNT IS AWARE. SHE ASKS THAT THE NURSE CALL HER WHEN EMS IS HERE TO PHOTOGRAPHIC PROCESS ATTENDANT. CM TO FOLLOW AND ASSIST NEEDED. Topographical Drafter: Mariposa Garcia DCPIA - Discharge Planning Initial Assessment Updated by [email or web address]: Mariposa Garcia on 07/17/20 3:42 pm * Is the patient Alert and Oriented? Yes * PCP LYRIC * Pharmacy [facility] * Preadmission Environment Home with Family * Other Equipment POWER CHAIR,, WALKER * List name and contact numbers for known caregivers / representatives who currently or will assist patient after discharge: INDIA RODRIGUEZ, AUNT, * Community resources currently utilized Home Health * Please name any agencies selected above. [facility] * Additional services required to return to the preadmission environment? No * Can the patient safely return to the preadmission environment? Yes * Has this patient been hospitalized within the prior 30 days at any hospital? No Patient Name: JACLYN RODRIGUEZ Page [phone] at 1545 All edits/amendments must be made on the electronic document DICTATION DATE: 07/17/20 154 MANAGER STERILE PROCESSING: TERENCE 07/17/201544 RPT#: [id number] DC DATE: STATUS: ADM IN [facility] [address] [place] [address] END OF REPORT
--- NOTE | 2020-07-17 15:59 | NUR ---
OT NOTE: PT COMPLETED BED MOBILITY AND POSITIONING WITH TOTAL A. PT COMPLETED HAND AND FACE HYGIENE WITH TOTAL A. PT COMPLETED ORAL CARE WITH TOOTHETTE WITH TOTAL A. [id number] THANK YOU,WILLIE REN
[2020-07-17 16:23] VITALS: BP 135/85
--- NOTE | 2020-07-17 19:55 | NUR ---
FAMILY CALLED AND WANTED TO FIBERGLASS PRODUCT TESTER PATIENT INSTEAD OF HIM GOING HOME VIA AMBULANCE. CALLED [facility] AND CANCELLED TRANSPORT.
--- NOTE | 2020-07-17 19:56 | NUR ---
PT ESCORTED TO ER EXIT VIA WHEELCHAIR, ESCORTED BY X2 LADIES' HAT TRIMMER'S TO ASSIST INTO CAR, PT IS A QUAD.
--- NOTE | 2020-07-18 10:24 | MORECARE ---
CASE MANAGEMENT DISCHARGE SUMMARY PATIENT: JACLYN RODRIGUEZ UNIT: [id number] ADM DATE: 07/13/20 AGE: 35 : 81 SEX: M ROOM/BED: D.2229 AUTHOR: RUSTAMDOC PHYSICIAN: REFERRING PHYSICIAN: DORINDA AQUINO MD DATE OF SERVICE: 07/18/20 Discharge Plan Patient Name: JACLYN RODRIGUEZ Facility: [facility]:[place] : 1985 Planned Disposition: Anticipated Discharge Date: Discharge Date: 07/17/2020 Expected LOS: Initial Reviewer: [email or web address] Initial Review Date: 07/13/2020 Generated: 07/18/20 11:23 am Comments DCP- Discharge Planning Updated by [email or web address]: Mariposa Garcia on 07/17/20 2:[address] Patient Name: JACLYN RODRIGUEZ Admission Status: ER Accout number: [id number] Admission Date: 07-13-2020 : 1985 Admission Diagnosis:VISUAL HALLUCINATIONS Attending: DORINDA AQUINO Current LOS: 4 Anticipated DC Date: Planned Disposition: Primary Insurance: MEDICAID [place] Discharge Planning Comments: CM MET WITH PATIENT'S AUNT VIA TELEPHONE AFTER OBTAINING VERBAL CONSENT. DISCUSSED AVAILABILITY/NEEDS OF HOME HEALTH, REHAB, AND MEDICAL EQUIPMENT. SHE STATES THEY HAVE HOME HEALTH WITH [facility]. STATES PATIENT WILL NEED AMBULANCE TRANSPORT TO HOME, HE IS A QUAD. NO OTHER DISCHARGE NEEDS IDENTIFIED. PATIENT TO DC TO HOME TODAY AND HIS AUNT IS AWARE. SHE ASKS THAT THE NURSE CALL HER WHEN EMS IS HERE TO COPIER REPAIR TECHNICIAN. CM TO FOLLOW AND ASSIST NEEDED. Director Software Development: Mariposa Garcia DCPIA - Discharge Planning Initial Assessment Updated by [email or web address]: Mariposa Garcia on 07/17/20 3:42 pm * Is the patient Alert and Oriented? Yes * PCP LYRIC * Pharmacy [facility] * Preadmission Environment Home with Family * Other Equipment POWER CHAIR,, WALKER * List name and contact numbers for known caregivers / representatives who currently or will assist patient after discharge: INDIA RODRIGUEZ, AUNT, * Community resources currently utilized Home Health * Please name any agencies selected above. [facility] * Additional services required to return to the preadmission environment? No * Can the patient safely return to the preadmission environment? Yes * Has this patient been hospitalized within the prior 30 days at any hospital? No Last DP export: 07/17/20 2:45 pm Patient Name: JACLYN RODRIGUEZ Page [phone] at 1024 All edits/amendments must be made on the electronic document DICTATION DATE: 07/18/20 1024 PATIENT OBSERVATION ASSISTANT: TERENCE 07/18/20 1024 RPT#: [id number] DC DATE:07/17/20 STATUS: DIS IN [facility] [address] [place] [address] END OF REPORT
== END 2020-07-17 20:00 | disposition home health service (06) | DRG 124 ==
LOC: D.ER 03:09 → D.MS 04:19 → OBSVTIME 04:19 → D.EDHOLD 04:19 → D.MS 05:25
PROVIDERS: Family Medicine; ADMIT Emergency Medicine; ATTEND Emergency Medicine
DX: R44.1 Visual hallucinations (principal); G93.41 Metabolic encephalopathy; G82.52 Quadriplegia, C1-C4 incomplete; F17.203 Nicotine dependence unspecified, with withdrawal; E44.0 Moderate protein-calorie malnutrition; F11.10 Opioid abuse, uncomplicated; F12.10 Cannabis abuse, uncomplicated; F41.9 Anxiety disorder, unspecified; F32.9 Major depressive disorder, single episode, unspecified; K21.9 Gastro-esophageal reflux disease without esophagitis; L89.152 Pressure ulcer of sacral region, stage 2; I25.10 Atherosclerotic heart disease of native coronary artery without angina pectoris; Z68.20 Body mass index [BMI] 20.0-20.9, adult

== ENCOUNTER 2020-07-24 01:34 | Emergency (ER) | payer MEDICAID ==
[~2020-07-24] VITALS: Ht 162.6 cm; Wt 54.5 kg
[~2020-07-24 01:34] MED LIST changes: +GEODON20 MG PO
[2020-07-24 01:38] VITALS: Ht 162.6 cm; Wt 54.5 kg
[2020-07-24] MEDS ORDERED: DOXYCYCLINE HY100 M2 PO (02:01)
[2020-07-24 02:38] VITALS: BP 100/69
== END 2020-07-24 02:39 | disposition home or self-care (01) ==
LOC: D.ER 01:34
DX: J20.9 Acute bronchitis, unspecified (principal)

== ENCOUNTER 2020-07-27 01:04 | Emergency (ER) | payer MEDICAID ==
[~2020-07-27] VITALS: Ht 162.6 cm; Wt 54.5 kg
[2020-07-27 01:06] VITALS: Ht 162.6 cm; Wt 54.5 kg
[2020-07-27 02:24] VITALS: BP 90/56
== END 2020-07-27 02:24 | disposition home or self-care (01) ==
LOC: D.ER 01:04
DX: F41.9 Anxiety disorder, unspecified (principal); M79.602 Pain in left arm; M79.601 Pain in right arm; G82.50 Quadriplegia, unspecified

== ENCOUNTER 2020-08-22 04:25 | Emergency (ER) | payer MEDICAID ==
[~2020-08-22] VITALS: Ht 162.6 cm; Wt 52.3 kg
[2020-08-22 04:28] VITALS: Ht 162.6 cm; Wt 52.3 kg
[2020-08-22 06:06] VITALS: BP 98/71
== END 2020-08-22 06:07 | disposition home or self-care (01) ==
LOC: D.ER 04:25
DX: R33.9 Retention of urine, unspecified (principal); G82.50 Quadriplegia, unspecified; L89.159 Pressure ulcer of sacral region, unspecified stage

== ENCOUNTER 2020-09-29 03:10 | Emergency (ER) | payer MEDICAID ==
[~2020-09-29] VITALS: Ht 162.6 cm; Wt 54.5 kg
[2020-09-29 03:22] VITALS: Ht 162.6 cm; Wt 54.5 kg
[2020-09-29 05:16] LABS: BILIRUBIN NEGATIVE (NEGATIVE); KETONE NEGATIVE (NEGATIVE); NITRITE POSITIVE (NEGATIVE); UROBILINOGEN NORMAL mg/dL (< 2)
[2020-09-29 05:20] LABS: BACTERIA MANY HPF (NONE SEEN); SQUAMOUS EPITHELIAL 0-5 HPF (0-4); WHITE CELLS - URINE 0-5 HPF (0-1)
[2020-09-29] MEDS ORDERED: CEPHALEXIN500 M1 PO (05:36)
[2020-09-29 07:42] VITALS: BP 106/59
== END 2020-09-29 07:57 | disposition home or self-care (01) ==
LOC: D.ER 03:10
PROVIDERS: Student in an Organized Health Care Education/Training Program
DX: N39.0 Urinary tract infection, site not specified (principal); G82.50 Quadriplegia, unspecified; R52 Pain, unspecified

== ENCOUNTER 2020-10-14 02:39 | Emergency (ER) | payer MEDICAID ==
[~2020-10-14] VITALS: Ht 162.6 cm; Wt 44.9 kg
[~2020-10-14 02:39] MED LIST changes: +CEPHALEXIN500 M1 PO
[2020-10-14 02:44] VITALS: Ht 162.6 cm; Wt 44.9 kg
[2020-10-14 03:21] LABS: BASOPHILS 0.6 % (0-2); EOSINOPHILS 3.1 % (0-7); HEMATOCRIT 36.5 % (42.0-54.0); HEMOGLOBIN 12.4 g/dL (13.5-17.5); LYMPHOCYTES 35.6 % (15-50); MCH 33.3 pg (26.0-34.0); MCHC 33.8 g/dL (31.0-37.0); MCV 98.3 fL (80.0-100.0); MEAN PLATELET VOLUME 8.7 fL (7.4-10.4); MONOCYTES 16.2 % (2-11); NEUTROPHILS 44.5 % (40-80); PLATELET COUNT 162 10x3/uL (130-400); RBC 3.72 10x6/uL (4.20-6.10); RDW 14.1 % (11.5-14.5); WBC 4.1 10x3/uL (4.8-10.8)
[2020-10-14 03:25] LABS: INR 1.12 (0.85-1.17); PROTIME 13.3 SECONDS (11.6-15.0)
[2020-10-14 03:27] LABS: CALC OSMOLALITY 280 mosm/kg (275-300); CALCIUM 8.7 mg/dL (8.5-10.1); CARBON DIOXIDE 27.9 mmol/L (21.0-32.0); CHLORIDE - SERUM 107 mmol/L (98-107); CREATININE - SERUM 0.5 mg/dL (0.6-1.3); GLUCOSE 75 mg/dL (74-106); POTASSIUM - SERUM 3.6 mmol/L (3.5-5.1); SODIUM 141 mmol/L (136-145); UREA NITROGEN 14 mg/dL (7-18); eGFR NON AFRICAN AMERICAN > 90 mL/min (90-120)
[2020-10-14 03:39] LABS: ALBUMIN 3.1 g/dL (3.4-5.0); ALKALINE PHOSPHATASE 122 U/L (30-120); ALT (SGPT) 24 U/L (10-68); PRO BNP 32 pg/mL (0-125); PROTEIN - SERUM 7.5 g/dL (6.4-8.2)
[2020-10-14 04:30] VITALS: BP 116/82
== END 2020-10-14 07:45 | disposition home or self-care (01) ==
LOC: D.ER 02:39
PROVIDERS: Family Medicine
DX: G89.29 Other chronic pain (principal); G82.20 Paraplegia, unspecified; L89.153 Pressure ulcer of sacral region, stage 3

== ENCOUNTER 2020-11-02 00:57 | Emergency (ER) | payer MEDICAID ==
[~2020-11-02] VITALS: Ht 162.6 cm; Wt 34.1 kg
[2020-11-02 01:08] VITALS: BP 113/78; Ht 162.6 cm; Wt 34.1 kg
[2020-11-02] MEDS ORDERED: XANAX1 MG PO (01:33)
== END 2020-11-02 02:18 | disposition home or self-care (01) ==
LOC: D.ER 00:57
DX: F41.8 Other specified anxiety disorders (principal); F43.21 Adjustment disorder with depressed mood; G47.00 Insomnia, unspecified